=== PATIENT | male | born 1950 | race Two or more races ===

== ENCOUNTER 2017-01-12 11:11 | Emergency (ER) | payer MEDICAID ==
[~2017-01-12] VITALS: Ht 170.2 cm; Wt 99.8 kg
[~2017-01-12 11:11] MED LIST: ALDACTONE25 MG PO; AMLODIPINE BESY10 MG ORAL; ASPIR 8181 MG ORAL; ASPIR-LOW81 MG PO; ASPIRIN PO; AZITHROMYCIN250 MG ORAL; BENAZEPRIL HCL40 MG ORAL; CARVEDILOL25 MG ORAL; COLCHICINE0.6 M1 PO; COREG6.25 MG PO; COUMADIN3 MG PO; DIGOXIN0.125 MG/2 ORAL; DIGOXIN0.25 MG/5 PO; FUROSEMIDE40 MG ORAL; FUROSEMIDE40 MG PO; ISOSORBIDE DINI20 M1 PO; KEFLEX500 MG ORAL; LISINOPRIL20 MG PO; NITROGLYCERIN0.4 MG SL; NORCO 5-325 TA1 EACH ORAL; NORVASC10 MG PO; OMEPRAZOLE20 M2 ORAL; SPIRONOLACTONE1 EACH ORAL; SPIRONOLACTONE100 MG ORAL; ZESTRIL10 MG PO; ZOFRAN8 MG ORAL; [UNRECOGNIZED DRUG - OTHER] PO; spirinolactone
[2017-01-12] MEDS ORDERED: Lidocaine 1% Plain 30 ml INJ ONE (12:45)
--- NOTE | 2017-01-12 13:04 | Emergency Room Report ---
History of Present Illness General Chief Complaint: Pain Source: Patient Present Illness HPI 66YOM with known gout with 1 day left knee pain/swelling. Atraumatic. No recent dietary indiscretion. Denies fever/chills, rash to area. PMHx: CHF, HTN, AFIB, and hx pacemaker Allergies: Coded Allergies: No Known Allergies (Verified , 03/15/10) Patient History Past Medical History: DM, HTN, CAD, other - gout Past Surgical History: none, pacemaker Pertinent Family History: none Social History: Denies: alcohol use, drug use, smoking Immunizations: UTD Reviewed Nursing Documentation: PMH: Agreed, PSxH: Agreed Nursing Documentation-PMH Past Medical History: No History, Except For Hx Cardiac Problems: Yes - CHF, Gout Hx Hypertension: Yes Hx Pacemaker: Yes - since 2014 Hx Diabetes: No Hx Cancer: No Hx Gastrointestinal Problems: No Hx Dialysis: No History Of Psychiatric Problem: No Hx Neurological Problems: Yes Hx Cerebrovascular Accident: Yes - 2011 Hx Seizures: No Review of Systems All Other Systems: negative except mentioned in HPI Physical Exam Vital Signs Date Time Temp Pulse Resp B/P Pulse Ox O2 Delivery O2 Flow Rate FiO2 01/12/17 11:27 98.1 80 16 146/90 98 Room Air Sp02 EP Interpretation: reviewed, normal General Appearance: normal inspection, well appearing, no apparent distress, alert, GCS 15, non-toxic Head: normocephalic, atraumatic Eyes: bilateral eye EOMI, bilateral eye PERRL Neck: normal inspection, full range of motion, supple, no bony tend Respiratory: normal inspection, lungs clear, normal breath sounds, no respiratory distress, no retraction, no wheezing Cardiovascular #1: regular rate, rhythm, no edema Gastrointestinal: normal inspection, normal bowel sounds, non tender, soft, no guarding, no hernia Genitourinary: no CVA tenderness Musculoskeletal: normal inspection, back normal, normal range of motion, Quan' s Sign negative Neurologic: normal inspection, alert, oriented x3, responsive, 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 as tested, motor strength/tone normal, speech normal Psychiatric: normal inspection, judgement/insight normal, mood/affect normal Skin: normal inspection, normal color, no rash Procedures Additional Procedure Procedure Narrative Left knee arthrocentesis Patient positioned sitting upright with left knee extended Area sterilized with chlorhexedine prep Lateral superior portion of left knee anasthesized with 10cc lidocaine 1% Superior lateral approach done with needle aimed medially and inferiorly 80cc purulent yellow fluid aspirated No bleeding after procedure Patient tolerated well No complications Medical Decision Making Diagnostic Impression: Primary Impression: Left knee pain Qualified Codes: M25.562 - Pain in left knee Additional Impression: Gout attack Qualified Codes: M10.062 - Idiopathic gout, left knee ER Course DDx gouty flare, septic joint, arthritis PLAN Basic labs, ESR/CRP Xray Arthrocentesis Reevaluation Time: 13:44 Last Vital Signs Date Time Temp Pulse Resp B/P Pulse Ox O2 Delivery O2 Flow Rate FiO2 01/12/17 11:27 98.1 80 16 146/90 98 Room Air Status: improved Reevaluation Impression Labs: No leuks. H&H stable. Elevated CRP, ANGELA Arthrocentesis fluid is purulent, yellow 25K cell count. 94% PMNs Likely acute gout No fever or leukocytosis. Unable to DC home with either indomethacin or colchicine given major interactions with patient's digoxin or coumadin Will DC with vitamin C, advise cold compress PMD followup Disposition: HOME, SELF-CARE Referrals: NON PHYSICIAN (PCP) ALEXANDRE SULLIVAN M.D. Jan 12, 2017 13:03
[2017-01-12 13:08] LABS: BASOPHILS % (AUTO) 1.3 % (0.0-2.0); LYMPHOCYTES % (AUTO) 17.6 % (20.0-45.0); MEAN CORPUSCULAR HEMOGLOBIN 30.2 PG (27.0-31.0); MEAN CORPUSCULAR VOLUME 92 FL (80-99); MEAN PLATELET VOLUME 8.3 FL (6.5-10.1); MONOCYTES % (AUTO) 12.6 % (1.0-10.0); NEUTROPHILS % (AUTO) 66.6 % (45.0-75.0); PLATELET COUNT 250 K/UL (150-450); RED BLOOD COUNT 5.32 M/UL (4.70-6.10); RED CELL DISTRIBUTION WIDTH 12.6 % (11.6-14.8); WHITE BLOOD COUNT 8.7 K/UL (4.8-10.8)
[2017-01-12 13:25] LABS: ALANINE AMINOTRANSFERASE 17 U/L (3-41); ANION GAP 15 (5-15); ASPARTATE AMINO TRANSFERASE 14 U/L (5-40); CARBON DIOXIDE 28 mEQ/L (20-30); CHLORIDE 97 mEQ/L (98-107); CREATININE 0.9 mg/dL (0.7-1.2); CRP QUANT 6.1 mg/dL (< 0.5); GLOMERULAR FILTRATION RATE > 60 mL/min (>60); HEMOLYSIS 4; POTASSIUM 3.6 mEQ/L (3.4-4.9); SODIUM 140 mEQ/L (135-145); TOTAL PROTEIN 7.8 g/dL (6.6-8.7)
[2017-01-12 13:28] VITALS: BP 133/89
[2017-01-12] MEDS ORDERED: fentaNYL 100 mcg/2 mL IV ONE (13:45)
[2017-01-12 14:13] LABS: ERYTHROCYTE SEDIMENTATION RATE 23 MM/HR (0-20)
[2017-01-12 14:30] LABS: BD FL SOURCE SYNOVIAL; BD FL VOLUME 80 mL; BODY FLUID NUCLEATED CELLS 25288 /CUMM
[2017-01-12 14:31] LABS: BODY FLUID RBC 275 /CUMM
[2017-01-12 14:40] LABS: POLYMORPHONUCLEAR WBC 94 %
[2017-01-12 14:41] LABS: MONONUCLEAR WBC 6 %
[2017-01-12] MEDS ORDERED: VITAMIN C500 M1 ORAL (14:50)
[2017-01-12 15:29] VITALS: BP 143/93
[2017-01-12 15:31] VITALS: BP 143/93
--- NOTE | 2017-01-13 09:49 | Diagnostic Imaging Report ---
Indication: PAIN Technique: XRAY KNEE THREE VIEWS LEFT Comparison: None. Findings: There is tricompartment spurring. Fullness of the suprapatellar pouch is present. Slight narrowing of the medial joint compartment is noted as well. No acute fracture. No bone destruction. Impression: Osteoarthrosis. Knee effusion.
== END 2017-01-12 15:31 | disposition home or self-care (01) ==
LOC: EMR 12:18 → CANBEDREQ 14:40 → EMR 15:31
DX: M10.062 Idiopathic gout, left knee (principal); M25.562 Pain in left knee; I10 Essential (primary) hypertension; I50.9 Heart failure, unspecified; Z86.73 Personal history of transient ischemic attack (TIA), and cerebral infarction without residual deficits; I25.10 Atherosclerotic heart disease of native coronary artery without angina pectoris; I48.91 Unspecified atrial fibrillation; Z95.0 Presence of cardiac pacemaker
CPT/HCPCS: 20610; 36415; 73562; 80053; 85025; 85651; 86140; 87070; 87205; 89051; 96374; 99284; J2001; J3010; Z7502

== ENCOUNTER 2017-02-07 08:13 | Emergency (ER) | payer MEDICAID ==
[~2017-02-07] VITALS: Ht 170.2 cm; Wt 102.1 kg
[~2017-02-07 08:13] MED LIST changes: +VITAMIN C500 M1 ORAL
[2017-02-07] MEDS ORDERED: Lidocaine 1% Plain 30 ml INJ ONE (09:15)
[2017-02-07] MEDS ORDERED: Ketorolac 30mg Inj IM ONE (09:15)
[2017-02-07 10:35] VITALS: BP 128/88
[2017-02-07 11:53] LABS: APPEARANCE, BODY FLUID CLOUDY; BD FL SOURCE SYNOVIAL L KNEE; BD FL VOLUME 2 mL
[2017-02-07 11:54] LABS: BODY FLUID NUCLEATED CELLS 12075 /CUMM
[2017-02-07 12:21] LABS: BODY FLUID RBC 950 /CUMM
[2017-02-07 12:25] LABS: MONONUCLEAR WBC 14 %; POLYMORPHONUCLEAR WBC 80 %
[2017-02-07 12:30] VITALS: BP 145/77
--- NOTE | 2017-02-07 13:28 | Emergency Room Report ---
History of Present Illness General Chief Complaint: Lower Extremity Injury Source: Patient Present Illness HPI Patient has a history of left knee swelling. He has been diagnosed previously with gout. He was seen here 3 weeks ago for the same symptoms. He had swelling of his left knee and has severe pain with movement. He had the knee drained at that time. He states that since he left here the fluid reaccumulated. He denies fever or chills. Denies nausea or vomiting. He has no other complaints. Allergies: Coded Allergies: No Known Allergies (Verified , 03/15/10) Patient History Past Medical History: see triage record, DM, HTN, AK, CAD, CHF, CVA/TIA Social History: Denies: alcohol use, drug use, smoking Reviewed Nursing Documentation: PMH: Agreed, PSxH: Agreed Nursing Documentation-PMH Hx Cardiac Problems: Yes - CHF, Gout Hx Hypertension: Yes Hx Pacemaker: Yes - since 2014 Hx Diabetes: No Hx Cancer: No Hx Gastrointestinal Problems: No Hx Dialysis: No Hx Neurological Problems: Yes Hx Cerebrovascular Accident: Yes - 2011 Hx Seizures: No Review of Systems All Other Systems: negative except mentioned in HPI Physical Exam Vital Signs Date Time Temp Pulse Resp B/P Pulse Ox O2 Delivery O2 Flow Rate FiO2 02/07/17 08:21 98.2 87 18 158/88 97 Room Air Sp02 EP Interpretation: reviewed, normal General Appearance: no apparent distress, alert, GCS 15, non-toxic Head: normocephalic, atraumatic Eyes: bilateral eye PERRL, bilateral eye normal inspection ENT: hearing grossly normal, normal pharynx, no angioedema, normal voice Neck: full range of motion, supple/symm/no masses Respiratory: no respiratory distress, no retraction, no accessory muscle use, speaking full sentences Cardiovascular #1: regular rate, rhythm, no edema Gastrointestinal: normal bowel sounds, non tender, soft, non-distended, no guarding, no rebound Rectal: deferred Musculoskeletal: back normal, swelling - Tense swelling of the left knee consistent with a large joint effusion. No erythema or warmth. Neurologic: alert, oriented x3, responsive, motor strength/tone normal, sensory intact, speech normal Psychiatric: judgement/insight normal, memory normal, mood/affect normal, no suicidal/homicidal ideation Skin: normal color, no rash, warm/dry, well hydrated Procedures Additional Procedure Procedure Narrative Arthrocentesis of the left knee: The lateral aspect of the left knee was prepped and draped in a sterile manner. The area of injection was infiltrated with 2 mL of 1% lidocaine. An 18-gauge needle on a syringe was inserted into the joint space without complication or incident. 120 mL of cloudy yellow fluid was obtained. The wound was dressed and an Gunner bandage was applied to provide pressure. There were no complications. Medical Decision Making Diagnostic Impression: Primary Impression: Joint effusion of knee ER Course This patient has a joint effusion of the left knee. The knee was very tense and painful, so I did do an arthrocentesis to improve the patient's discomfort. I reviewed the results of the previous arthrocentesis and all of which were inflammatory and the Gram stain and culture were negative. I did resend the synovial fluid from today's arthrocentesis him to have the same findings. The fluid is inflammatory but there is no evidence of septic joint. Patient does have a known history of gout. The crystal study is pending. I instructed the patient to followup closely with his primary care physician and additionally an orthopedic surgeon. I also educated the patient that likely this effusion will return reaccumulate and so he needs to get more definitive therapy and treatment. I will place the patient on anti-inflammatories. The patient is accompanied by his son who also indicated understanding. The patient and his son are given return precautions and followup instructions. Labs Test 02/07/17 10:30 Body Fluid Source Synovial l knee Body Fluid Volume 2 mL Body Fluid Appearance Cloudy Body Fluid RBC 950 /CUMM Body Fluid Total Nucleated Cells 62221 /CUMM Body Fluid Polynuclear WBCs (%) 80 % Body Fluid Mononuclear WBCs (%) 14 % Body Fluid Mesothelial Cells (%) 6 % Last Vital Signs Date Time Temp Pulse Resp B/P Pulse Ox O2 Delivery O2 Flow Rate FiO2 02/07/17 10:35 98.9 72 18 128/88 95 Room Air Status: improved Disposition: HOME, SELF-CARE Condition: Improved Referrals: NON PHYSICIAN (PCP) GERALDINE SAMAYOA D.O. February 07, 2017 13:28
[2017-02-07] MEDS ORDERED: COLCHICINE0.6 M1 PO (13:32)
[2017-02-07 13:49] VITALS: BP 138/76
== END 2017-02-07 13:45 | disposition home or self-care (01) ==
LOC: EMR 09:02
DX: M25.462 Effusion, left knee (principal); M25.562 Pain in left knee; E11.9 Type 2 diabetes mellitus without complications; I10 Essential (primary) hypertension; I25.2 Old myocardial infarction; I25.10 Atherosclerotic heart disease of native coronary artery without angina pectoris; I50.9 Heart failure, unspecified; Z86.73 Personal history of transient ischemic attack (TIA), and cerebral infarction without residual deficits; M10.9 Gout, unspecified; Z95.0 Presence of cardiac pacemaker; Z86.69 Personal history of other diseases of the nervous system and sense organs
CPT/HCPCS: 20610; 29530; 89051; 89060; 96374; 96375; 99284; J1885; J2001; Z7502

== ENCOUNTER 2018-07-02 08:10 | Inpatient (IN) | payer MEDICAID ==
[2018-07-02] VITALS (7 sets, daily range): BP systolic 120–160; BP diastolic 80–113
[~2018-07-02] VITALS: Ht 172.7 cm; Wt 97.5 kg
[2018-07-02] MEDS ORDERED: ATORVASTATIN CA20 MG ORAL (08:25)
[2018-07-02] MEDS ORDERED: SPIRONOLACTONE100 MG ORAL (08:25)
[2018-07-02] MEDS ORDERED: LOSARTAN POTASS50 MG ORAL (08:25)
[2018-07-02] MEDS ORDERED: XARELTO10 MG ORAL (08:25)
[2018-07-02] MEDS ORDERED: Sodium Chloride 500ML 500 ML IV ONE (08:28)
[2018-07-02] MEDS ORDERED: Morphine Sulfate 2mg/ml Inj IVP ONE (08:30)
--- NOTE | 2018-07-02 08:34 | Emergency Room Report ---
History of Present Illness General Chief Complaint: Chest Pain Source: Patient Present Illness HPI 68-year-old male presents ED complaining of chest pain. States that chest pain started this morning around 5 AM. Sudden onset. Sharp. Midsternal, 7 out of 10, nonradiating. Notes shortness of breath. Son at bedside states that patient was discharged from [facility] on Saturday. Was there overnight after his ICD fired. ICD was evaluated and patient was subsequently discharged. Patient states that ICD did not fire today. Denies fevers or chills. Denies leg swelling. States he's been compliant with his medications. No other aggravating relieving factors. Denies any other associated symptoms Allergies: Coded Allergies: No Known Allergies (Verified , 03/15/10) Patient History Past Medical History: HTN, CHF, AFib, CVA/TIA Past Surgical History: pacemaker Social History: Denies: smoking, alcohol use, drug use Immunizations: UTD Reviewed Nursing Documentation: PMH: Agreed; PSxH: Agreed Nursing Documentation-PMH Past Medical History: No History, Except For Hx Cardiac Problems: Yes - CHF, Gout Hx Hypertension: Yes Hx Pacemaker: Yes - since 2014 Hx Diabetes: No Hx Cancer: No Hx Gastrointestinal Problems: No Hx Dialysis: No Hx Neurological Problems: Yes Hx Cerebrovascular Accident: Yes - 2011 Hx Seizures: No Review of Systems All Other Systems: negative except mentioned in HPI Physical Exam Vital Signs Date Time Temp Pulse Resp B/P (MAP) Pulse Ox O2 Delivery O2 Flow Rate FiO2 07/02/18 08:11 98.5 95 18 154/89 96 Room Air 98.4 Sp02 EP Interpretation: reviewed, normal General Appearance: no apparent distress, alert, GCS 15, non-toxic Head: normocephalic, atraumatic Eyes: bilateral eye normal inspection, bilateral eye PERRL ENT: hearing grossly normal, normal pharynx, no angioedema, normal voice Neck: full range of motion, supple/symm/no masses Respiratory: chest non-tender, lungs clear, normal breath sounds, speaking full sentences Cardiovascular #1: regular rate, rhythm, no edema Cardiovascular #2: 2+ carotid (R), 2+ carotid (L), 2+ radial (R), 2+ radial (L) , 2+ dorsalis pedis (R), 2+ dorsalis pedis (L) Gastrointestinal: normal bowel sounds, non tender, soft, non-distended, no guarding, no rebound Rectal: deferred Genitourinary: normal inspection, no CVA tenderness Musculoskeletal: back normal, gait/station normal, normal range of motion, non- tender Neurologic: alert, oriented x3, responsive, motor strength/tone normal, sensory intact, speech normal Psychiatric: judgement/insight normal, memory normal, mood/affect normal, no suicidal/homicidal ideation Reflexes: 3+ bicep (R), 3+ bicep (L), 3+ tricep (R), 3+ tricep (L), 3+ knee (R) , 3+ knee (L) Skin: normal color, no rash, warm/dry, well hydrated Lymphatic: no adenopathy Medical Decision Making Diagnostic Impression: Primary Impression: ACS (acute coronary syndrome) Additional Impressions: CHF (congestive heart failure) Qualified Codes: I50.9 - Heart failure, unspecified Atrial fibrillation Qualified Codes: I48.91 - Unspecified atrial fibrillation ER Course Hospital Course 68-year-old male presents ED complaining of chest pain Differential diagnoses include: TX/unstable angina, contusion, muscle strain, PTX, rib fracture Clinical course Patient placed on stretcher. on night monitor. After initial history and physical I ordered labs, EKG, chest x-ray, morphine labs reviewed- no leukocytosis, hb/hct stable, BUN/Cr mildly elevated, trop 0.00 , BNP elevated, coags ok EKG - afib, twave inversions in lateral leads interpreted by me Chest x-ray- cardiomegaly, ICD noted aspirin given. Given his significant cardiac history patient will be admitted Case discussed with Dr. Pedro and he agreed to accept the patient to his service for further care and support I. I feel this is a highly complex case requiring extensive working including EKG/Rhythm strip, Xray/CT/US, Blood/urine lab work, repeat exams while in ED, and administration of strong opiates/narcotics for pain control, admission to hospital or close patient follow up. Diagnosis - ACS, CHF, afib admitted to telemetry in serious condition Labs Test 07/02/18 08:20 White Blood Count 6.6 K/UL (4.8-10.8) Red Blood Count 6.14 M/UL (4.70-6.10) Hemoglobin 17.1 G/DL (14.2-18.0) Hematocrit 51.9 % (42.0-52.0) Mean Corpuscular Volume 85 FL (80-99) Mean Corpuscular Hemoglobin 27.9 PG (27.0-31.0) Mean Corpuscular Hemoglobin Concent 32.9 G/DL (32.0-36.0) Red Cell Distribution Width 13.7 % (11.6-14.8) Platelet Count 201 K/UL (150-450) Mean Platelet Volume 8.0 FL (6.5-10.1) Neutrophils (%) (Auto) 66.9 % (45.0-75.0) Lymphocytes (%) (Auto) 19.0 % (20.0-45.0) Monocytes (%) (Auto) 10.9 % (1.0-10.0) Eosinophils (%) (Auto) 2.3 % (0.0-3.0) Basophils (%) (Auto) 1.0 % (0.0-2.0) Prothrombin Time 12.4 SEC (9.30-11.50) Prothromb Time International Ratio 1.2 (0.9-1.1) Activated Partial Thromboplast Time 35 SEC (23-33) Sodium Level 140 MMOL/L (136-145) Potassium Level 3.9 MMOL/L (3.5-5.1) Chloride Level 102 MMOL/L (98-107) Carbon Dioxide Level 31 MMOL/L (21-32) Anion Gap 7 mmol/L (5-15) Blood Urea Nitrogen 27 mg/dL (7-18) Creatinine 1.4 MG/DL (0.55-1.30) Estimat Glomerular Filtration Rate 50.7 mL/min (>60) Glucose Level 147 MG/DL (74-106) Calcium Level 9.5 MG/DL (8.5-10.1) Total Bilirubin 1.1 MG/DL (0.2-1.0) Direct Bilirubin 0.3 MG/DL (0.0-0.3) Aspartate Amino Transf (AST/SGOT) 12 U/L (15-37) Alanine Aminotransferase (ALT/SGPT) 18 U/L (12-78) Alkaline Phosphatase 118 U/L (46-116) Total Creatine Kinase 83 U/L (26-308) Creatine Kinase MB 1.0 NG/ML (0.0-3.6) Creatine Kinase MB Relative Index 1.2 Troponin I 0.000 ng/mL (0.000-0.056) Pro-B-Type Natriuretic Peptide 1917 pg/mL (0-125) Total Protein 8.5 G/DL (6.4-8.2) Albumin 3.6 G/DL (3.4-5.0) Globulin 4.9 g/dL Albumin/Globulin Ratio 0.7 (1.0-2.7) EKG Diagnostic Results Rate: tachycardiac Rhythm: other - afib ST Segments: other - twave inversions in lateral leads ASA given to the pt in ED: Yes Rhythm Strip Diag. Results EP Interpretation: yes Rhythm: no PVC's, no ectopy Chest X-Ray Diagnostic Results Chest X-Ray Diagnostic Results : Chest X-Ray Ordered: Yes # of Views/Limited/Complete: 1 View Indication: Chest Pain EP Interpretation: Yes Interpretation: no consolidation, no effusion, no pneumothorax, other - cardiomegaly. ICD Impression: Other - cardiomegaly Electronically Signed by: Electronically signed by Nehemias Zeng MD Last Vital Signs Date Time Temp Pulse Resp B/P (MAP) Pulse Ox O2 Delivery O2 Flow Rate FiO2 07/02/18 08:11 98.5 95 18 154/89 96 Room Air 98.4 Status: improved Disposition: ADMITTED INPATIENT Condition: Serious Referrals: NOT CHOSEN IPA/,REFERRING (PCP) Nehemias Zeng MD Jul 02, 2018 08:34
[2018-07-02 08:38] LABS: EOSINOPHILS % (AUTO) 2.3 % (0.0-3.0); HEMATOCRIT 51.9 % (42.0-52.0); HEMOGLOBIN 17.1 G/DL (14.2-18.0); MEAN CORPUSCULAR VOLUME 85 FL (80-99); MONOCYTES % (AUTO) 10.9 % (1.0-10.0); NEUTROPHILS % (AUTO) 66.9 % (45.0-75.0); PLATELET COUNT 201 K/UL (150-450); RED BLOOD COUNT 6.14 M/UL (4.70-6.10); RED CELL DISTRIBUTION WIDTH 13.7 % (11.6-14.8); WHITE BLOOD COUNT 6.6 K/UL (4.8-10.8)
[2018-07-02 08:52] LABS: INR 1.2 (0.9-1.1)
[2018-07-02 09:08] LABS: ANION GAP 7 mmol/L (5-15); BLOOD UREA NITROGEN 27 mg/dL (7-18); CALCIUM 9.5 MG/DL (8.5-10.1); CARBON DIOXIDE 31 MMOL/L (21-32); CHLORIDE 102 MMOL/L (98-107); CREATININE 1.4 MG/DL (0.55-1.30); POTASSIUM 3.9 MMOL/L (3.5-5.1); SODIUM 140 MMOL/L (136-145)
[2018-07-02 09:21] LABS: ALANINE AMINOTRANSFERASE 18 U/L (12-78); ALBUMIN 3.6 G/DL (3.4-5.0); ALBUMIN/GLOBULIN RATIO 0.7 (1.0-2.7); ASPARTATE AMINO TRANSFERASE 12 U/L (15-37); BILIRUBIN,TOTAL 1.1 MG/DL (0.2-1.0)
[2018-07-02 09:22] LABS: BILIRUBIN,DIRECT 0.3 MG/DL (0.0-0.3)
[2018-07-02 09:32] LABS: ALKALINE PHOSPHATASE 118 U/L (46-116); CREATINE KINASE 83 U/L (26-308)
[2018-07-02] MEDS ORDERED: Norco 5mg/325mg tab ORAL PRN (09:45)
--- NOTE | 2018-07-02 10:00 | Diagnostic Imaging Report ---
Indication: Chest pain Technique: One view of the chest Comparison: 02/23/2015 Findings: Heart remains enlarged. There is a bifocal left chest AICD again demonstrated. The lungs and pleural spaces are clear Impression: Cardiomegaly, AICD. No acute process
--- NOTE | 2018-07-02 12:33 | Cardiac Electrophysiology PN ---
Subjective Subjective Cardiology consult dictated [id number] Objective Last 24 Hour Vital Signs Date Time Temp Pulse Resp B/P (MAP) Pulse Ox O2 Delivery O2 Flow Rate FiO2 07/02/18 11:08 94 18 156/96 99 Room Air 07/02/18 09:17 100 18 135/84 99 Room Air 07/02/18 08:51 98.2 07/02/18 08:35 77 17 07/02/18 08:34 98.2 80 17 120/100 100 Room Air 98.2 07/02/18 08:30 90 18 129/109 99 Room Air 07/02/18 08:11 98.5 95 18 154/89 96 Room Air 98.4 Laboratory Tests Test 07/02/18 08:20 White Blood Count 6.6 K/UL (4.8-10.8) Red Blood Count 6.14 M/UL (4.70-6.10) H Hemoglobin 17.1 G/DL (14.2-18.0) Hematocrit 51.9 % (42.0-52.0) Mean Corpuscular Volume 85 FL (80-99) Mean Corpuscular Hemoglobin 27.9 PG (27.0-31.0) Mean Corpuscular Hemoglobin Concent 32.9 G/DL (32.0-36.0) Red Cell Distribution Width 13.7 % (11.6-14.8) Platelet Count 201 K/UL (150-450) Mean Platelet Volume 8.0 FL (6.5-10.1) Neutrophils (%) (Auto) 66.9 % (45.0-75.0) Lymphocytes (%) (Auto) 19.0 % (20.0-45.0) L Monocytes (%) (Auto) 10.9 % (1.0-10.0) H Eosinophils (%) (Auto) 2.3 % (0.0-3.0) Basophils (%) (Auto) 1.0 % (0.0-2.0) Prothrombin Time 12.4 SEC (9.30-11.50) H Prothromb Time International Ratio 1.2 (0.9-1.1) H Activated Partial Thromboplast Time 35 SEC (23-33) H Sodium Level 140 MMOL/L (136-145) Potassium Level 3.9 MMOL/L (3.5-5.1) Chloride Level 102 MMOL/L (98-107) Carbon Dioxide Level 31 MMOL/L (21-32) Anion Gap 7 mmol/L (5-15) Blood Urea Nitrogen 27 mg/dL (7-18) H Creatinine 1.4 MG/DL (0.55-1.30) H Estimat Glomerular Filtration Rate 50.7 mL/min (>60) Glucose Level 147 MG/DL (74-106) H Calcium Level 9.5 MG/DL (8.5-10.1) Total Bilirubin 1.1 MG/DL (0.2-1.0) H Direct Bilirubin 0.3 MG/DL (0.0-0.3) Aspartate Amino Transf (AST/SGOT) 12 U/L (15-37) L Alanine Aminotransferase (ALT/SGPT) 18 U/L (12-78) Alkaline Phosphatase 118 U/L (46-116) H Total Creatine Kinase 83 U/L (26-308) Creatine Kinase MB 1.0 NG/ML (0.0-3.6) Creatine Kinase MB Relative Index 1.2 Troponin I 0.000 ng/mL (0.000-0.056) Pro-B-Type Natriuretic Peptide 1917 pg/mL (0-125) H Total Protein 8.5 G/DL (6.4-8.2) H Albumin 3.6 G/DL (3.4-5.0) Globulin 4.9 g/dL Albumin/Globulin Ratio 0.7 (1.0-2.7) L Microbiology Date/Time Source Procedure Growth Status 07/02/18 09:35 Rectal Mucosa Received Chong Yanez MD Jul 02, 2018 12:33
--- NOTE | 2018-07-02 13:00 | History & Physical ---
History and Physical History & Physicial Dictated for Int med-Dr Pedro no. [id number]. Jeremy Hanson MD Jul 02, 2018 13:00
[2018-07-02] MEDS: Carvedilol 25mg Tab ORAL SCH (17:51)
[2018-07-02] MEDS: Heparin 5000 units/ml inj SUBQ SCH (21:22)
[2018-07-03] VITALS: BP 138/80
[2018-07-03 04:00] VITALS: BP 123/76
[2018-07-03 07:32] LABS: BASOPHILS % (AUTO) 1.2 % (0.0-2.0); EOSINOPHILS % (AUTO) 3.7 % (0.0-3.0); HEMATOCRIT 52.1 % (42.0-52.0); LYMPHOCYTES % (AUTO) 28.6 % (20.0-45.0); MEAN CORPUSCULAR VOLUME 86 FL (80-99); MONOCYTES % (AUTO) 12.6 % (1.0-10.0); NEUTROPHILS % (AUTO) 53.8 % (45.0-75.0); PLATELET COUNT 204 K/UL (150-450); RED BLOOD COUNT 6.04 M/UL (4.70-6.10); RED CELL DISTRIBUTION WIDTH 13.7 % (11.6-14.8); WHITE BLOOD COUNT 6.1 K/UL (4.8-10.8)
[2018-07-03 07:56] LABS: ALANINE AMINOTRANSFERASE 16 U/L (12-78); ALBUMIN 3.4 G/DL (3.4-5.0); ALBUMIN/GLOBULIN RATIO 0.7 (1.0-2.7); ALKALINE PHOSPHATASE 111 U/L (46-116); ANION GAP 7 mmol/L (5-15); ASPARTATE AMINO TRANSFERASE 12 U/L (15-37); BILIRUBIN,TOTAL 0.9 MG/DL (0.2-1.0); BLOOD UREA NITROGEN 32 mg/dL (7-18); CALCIUM 9.5 MG/DL (8.5-10.1); CARBON DIOXIDE 32 MMOL/L (21-32); CHLORIDE 103 MMOL/L (98-107); CREATININE 1.3 MG/DL (0.55-1.30); PHOSPHORUS 3.5 MG/DL (2.5-4.9); POTASSIUM 4.1 MMOL/L (3.5-5.1); SODIUM 142 MMOL/L (136-145)
[2018-07-03 08:00] VITALS: BP 141/81
[2018-07-03] MEDS ORDERED: Spironolactone 25mg tab ORAL SCH (09:00)
[2018-07-03] MEDS ORDERED: Digoxin Elixir 0.125mg ORAL SCH (09:00)
[2018-07-03] MEDS ORDERED: Losartan 50mg tab ORAL SCH (09:00)
[2018-07-03] MEDS ORDERED: Xarelto 10mg tab ORAL SCH (09:00)
[2018-07-03 09:59] VITALS: BP 141/81
[2018-07-03] MEDS: Carvedilol 25mg Tab ORAL SCH (09:59)
[2018-07-03] MEDS: Heparin 5000 units/ml inj SUBQ SCH (10:03)
--- NOTE | 2018-07-03 11:50 | Consultation ---
History of Present Illness General Date patient seen: Jul 03, 2018 Chief Complaint: Chest Pain Present Illness HPI 68-year-old male with hx of cardiomyopathy and ICD presented to ED complaining of chest pain. States that chest pain started this morning around 5 AM. Sudden onset. Sharp. Midsternal, 7 out of 10, nonradiating. Son at bedside states that patient was discharged from [facility] on Saturday. Denies fevers or chills. Denies leg swelling. States he's been compliant with his medications. He is admitted to telemetry for further treatment. Allergies: Coded Allergies: No Known Allergies (Verified , 03/15/10) Medication History Scheduled Amlodipine Besylate* (Amlodipine Besylate*), 10 MG ORAL DAILY, (Reported) Ascorbic Acid* (Vitamin C*), 500 MG ORAL DAILY Aspirin* (Aspir-Low*), 81 MG PO DAILY, (Reported) Atorvastatin Calcium* (Atorvastatin Calcium*), 10 MG ORAL BEDTIME, (Reported) Carvedilol* (Carvedilol*), 25 MG ORAL BID, (Reported) Colchicine (Colchicine), 0.6 MG PO DAILY Colchicine (Colchicine), 0.6 MG PO DAILY Digoxin* (Digoxin*), 0.125 MG ORAL DAILY, (Reported) Furosemide* (Lasix*), 40 MG PO DAILY, (Reported) Losartan Potassium* (Losartan Potassium*), 100 MG ORAL DAILY, (Reported) Omeprazole (Omeprazole), 20 MG ORAL DAILY, (Reported) Rivaroxaban (Xarelto*), 20 MG ORAL DAILY, (Reported) Spironolactone* (Spironolactone*), 12.5 MG ORAL DAILY, (Reported) Warfarin Sod* (Coumadin*), 2 MG PO DAILY, (Reported) Scheduled PRN Hydrocodone Bit/Acetaminophen 5-325* (Sussex 5-325*), 1 TAB ORAL Q6H PRN for For Pain Miscellaneous Medications Benazepril Hcl* (Benazepril Hcl*), 40 MG ORAL, (Reported) Spironolactone* (Spironolactone*), 25 MG ORAL, (Reported) Patient History Healthcare decision maker Resuscitation status Full Code Advanced Directive on File Past Medical/Surgical History Past Medical/Surgical History: (1) Atrial fibrillation (2) Gout Review of Systems All Other Systems: negative except mentioned in HPI Physical Exam General Appearance: WD/WN, no apparent distress Lines, tubes and drains: peripheral HEENT: normocephalic, atraumatic Neck: non-tender, normal alignment Respiratory/Chest: chest wall non-tender, lungs clear Breasts: no masses Cardiovascular/Chest: normal rate Abdomen: normal bowel sounds Genitourinary/Rectal: normal genital exam Last 24 Hour Vital Signs Date Time Temp Pulse Resp B/P (MAP) Pulse Ox O2 Delivery O2 Flow Rate FiO2 07/03/18 09:59 54 07/03/18 09:59 54 141/81 07/03/18 09:58 141/81 07/03/18 08:20 Room Air 07/03/18 08:00 97.9 54 20 141/81 (101) 97 97.9 07/03/18 04:00 97.5 63 18 123/76 (92) 97 97.5 07/03/18 04:00 84 07/03/18 00:00 77 07/03/18 00:00 98.2 84 18 138/80 (99) 97 98.2 07/02/18 21:00 Room Air 07/02/18 20:00 96.1 95 18 143/80 (101) 96 96.1 07/02/18 20:00 106 07/02/18 17:51 90 160/113 07/02/18 16:00 90 07/02/18 14:18 Room Air 07/02/18 12:42 18 154/92 99 Room Air 07/02/18 12:42 97.7 70 20 160/113 (129) 97 97.7 07/02/18 12:00 104 Intake and Output 07/02/18 07/03/18 19:00 07:00 Intake Total 2380 ml Balance 2380 ml Intake Oral 1880 ml IV Total 500 ml # Voids 3 1 Laboratory Tests Test 07/03/18 05:55 White Blood Count 6.1 K/UL (4.8-10.8) Red Blood Count 6.04 M/UL (4.70-6.10) Hemoglobin 17.0 G/DL (14.2-18.0) Hematocrit 52.1 % (42.0-52.0) H Mean Corpuscular Volume 86 FL (80-99) Mean Corpuscular Hemoglobin 28.1 PG (27.0-31.0) Mean Corpuscular Hemoglobin Concent 32.6 G/DL (32.0-36.0) Red Cell Distribution Width 13.7 % (11.6-14.8) Platelet Count 204 K/UL (150-450) Mean Platelet Volume 8.2 FL (6.5-10.1) Neutrophils (%) (Auto) 53.8 % (45.0-75.0) Lymphocytes (%) (Auto) 28.6 % (20.0-45.0) Monocytes (%) (Auto) 12.6 % (1.0-10.0) H Eosinophils (%) (Auto) 3.7 % (0.0-3.0) H Basophils (%) (Auto) 1.2 % (0.0-2.0) Erythrocyte Sedimentation Rate 8 MM/HR (0-20) Sodium Level 142 MMOL/L (136-145) Potassium Level 4.1 MMOL/L (3.5-5.1) Chloride Level 103 MMOL/L (98-107) Carbon Dioxide Level 32 MMOL/L (21-32) Anion Gap 7 mmol/L (5-15) Blood Urea Nitrogen 32 mg/dL (7-18) H Creatinine 1.3 MG/DL (0.55-1.30) Estimat Glomerular Filtration Rate 55.2 mL/min (>60) Glucose Level 93 MG/DL (74-106) Calcium Level 9.5 MG/DL (8.5-10.1) Phosphorus Level 3.5 MG/DL (2.5-4.9) Magnesium Level 1.9 MG/DL (1.8-2.4) Total Bilirubin 0.9 MG/DL (0.2-1.0) Aspartate Amino Transf (AST/SGOT) 12 U/L (15-37) L Alanine Aminotransferase (ALT/SGPT) 16 U/L (12-78) Alkaline Phosphatase 111 U/L (46-116) Troponin I 0.000 ng/mL (0.000-0.056) Total Protein 8.0 G/DL (6.4-8.2) Albumin 3.4 G/DL (3.4-5.0) Globulin 4.6 g/dL Albumin/Globulin Ratio 0.7 (1.0-2.7) L Height (Feet): 5 Height (Inches): 8.00 Weight (Pounds): 215 Medications Current Medications Medications (Trade) Dose Ordered Sig/Ronnie Route PRN Reason Start Time Stop Time Status Last Admin Dose Admin Acetaminophen/ Hydrocodone Bitart (Sussex 5/325) 1 tab Q6H PRN ORAL For Pain 07/02/18 09:45 07/09/18 09:44 Atorvastatin Calcium (Lipitor) 10 mg BEDTIME ORAL 07/02/18 21:00 08/01/18 20:59 07/02/18 21:21 Carvedilol (Coreg) 25 mg BID ORAL 07/02/18 18:00 08/01/18 17:59 07/02/18 17:51 Digoxin (Lanoxin) 0.125 mg DAILY ORAL 07/03/18 09:00 08/02/18 08:59 Furosemide (Lasix) 40 mg EVERY 12 HOURS IV 07/02/18 21:00 08/01/18 20:59 07/03/18 09:58 Heparin Sodium (Porcine) (Heparin 5000 units/ml) 5,000 units EVERY 12 HOURS SUBQ 07/02/18 21:00 08/01/18 20:59 07/03/18 10:03 Losartan Potassium (Cozaar) 100 mg DAILY ORAL 07/03/18 09:00 08/02/18 08:59 07/03/18 09:58 Rivaroxaban (Xarelto) 20 mg DAILY ORAL 07/03/18 09:00 08/02/18 08:59 07/03/18 09:57 Spironolactone (Aldactone) 25 mg DAILY ORAL 07/03/18 09:00 08/02/18 08:59 07/03/18 09:58 Assessment/Plan Problem List: (1) ACS (acute coronary syndrome) ICD Codes: I24.9 - Acute ischemic heart disease, unspecified SNOMED: 258000731 (2) Atrial fibrillation ICD Codes: I48.91 - Unspecified atrial fibrillation SNOMED: 17869515 Qualifiers: Qualified Codes: I48.91 - Unspecified atrial fibrillation (3) HTN (hypertension) ICD Codes: I10 - HTN (hypertension) SNOMED: 04886006 Assessment/Plan rate control symptomatic treatment dc 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
--- NOTE | 2018-07-03 17:00 | Consultation ---
DATE OF CONSULTATION: 07/02/2018 CARDIOLOGY CONSULTATION CONSULTING PHYSICIAN: Chong Yanez M.D. REFERRING PHYSICIAN: Abdiaziz Pedro M.D. REASON FOR CONSULTATION: Evaluation of the patient's defibrillator and congestive heart failure. HISTORY OF PRESENT ILLNESS: The patient is a 68-year-old gentleman with history of hypertension, chronic atrial fibrillation, congestive heart failure, who underwent a defibrillator implantation at [facility] in 2014. The patient presented to the emergency room with chest pain which started at around 5 o'clock in the morning. It was sudden, was sharp, was midsternal, 7/10. The patient also felt that he was short of breath. The patient was recently discharged from [facility] on Saturday when they kept overnight for evaluation of his ICD firing. The patient's defibrillator did not discharge today. The patient was admitted and Cardiology consultation was obtained for further evaluation and management. REVIEW OF SYSTEMS: Negative other than what was mentioned in history of present illness. PAST MEDICAL HISTORY: Hypertension, atrial fibrillation, congestive heart failure, status post defibrillator in 2014. FAMILY HISTORY: Noncontributory. SOCIAL HISTORY: He lives at home. Does not smoke or drink alcohol. PHYSICAL EXAMINATION: VITAL SIGNS: Blood pressure 154/89, pulse 95, respirations 18, and temperature 98.5. HEAD AND NECK: Show mild JVD. LUNGS: Decreased breath sounds. CARDIOVASCULAR: Irregular S1 and S2 with no gallop or murmur. ABDOMEN: Soft. EXTREMITIES: No pitting edema. SKIN: His defibrillator in left subclavian is intact. DIAGNOSTIC DATA: His EKG showed atrial fibrillation, controlled ventricular response. LABORATORY DATA: His labs show white count of 6.6, hemoglobin of 17.1, hematocrit 52, and platelet count is 201,000. Sodium is 140, potassium 3.9, BUN of 47, creatinine 1.4, and glucose of 147. Troponin is negative x2. BNP is 1917. Digoxin level is 1.1. ASSESSMENT AND PLAN: 1. Atrial fibrillation. Rate is controlled on digoxin 0.1 mg daily. Repeat INR however is only 1.2. The patient is on Xarelto 20 mg daily, however, the patient is also on Coreg for better rate control at 25 mg b.i.d. 2. Congestive heart failure. Echocardiogram will be repeated. Continue Coreg 25 mg b.i.d., Aldactone 25 mg daily, Cozaar 100 mg daily, digoxin 0.125 mg daily. Discontinue Lotensin as the patient is already on Cozaar. Add Lasix to his medical regimen. 3. Status post dual-chamber defibrillator with recent shock. We will interrogate defibrillator for further evaluation. 4. Hyperlipidemia, on Lipitor. Thank you very much, Dr. Pedro, for allowing me to participate in the care of this patient. Please do not hesitate to contact me for any questions regarding my evaluation. Chong Yanez M.D. DR: Belkis JOB#: [id number] CC:
--- NOTE | 2018-07-04 08:44 | Discharge Summary ---
Discharge Summary Discharge Summary _ DATE OF ADMISSION: 07/02/2018 DATE OF DISCHARGE: 07/03/2018 CONSULTANTS: Dr. Chong Denton BRIEF HOSPITAL COURSE: Patient is a 68-year-old male, who presented to ED complaining of chest pain. Pain started early in the morning around 5 AM. Pain was sudden in onset. Described to be sharp, midsternal, 7 out of 10, and nonradiating. He also noted shortness of breath. Son was at bedside and stated patient was recently at [facility] and was observed overnight after ICD fired. ICD was evaluated and patient was subsequently discharged. He denied any fever or chills, denied any leg swelling, he stated to be compliant with his medications. He has medical history significant for hypertension, CHF, atrial fibrillation status post pacemaker, CVA/TIA. On evaluation at ED, blood pressure was 154/89, heart rate 95. Blood work did not show any leukocytosis, hemoglobin and hematocrit stable, creatinine was slightly elevated to 1.4, BUN 27. Initial troponin was negative. ProBNP 1917. EKG showed normal sinus rhythm with T-wave inversions in the lateral leads. Chest x-ray showed cardiomegaly with ICD noted on the left chest. There was no acute process. He was given aspirin. He was then admitted for further evaluation. He underwent cardiac evaluation. Cardiac enzyme was monitored. Patient has atrial fibrillation with controlled rate on digoxin 0.1 mg daily and Coreg 25 mg twice a day. He was continued on Xarelto 20 mg daily. He has history of congestive heart failure and was given Aldactone, Cozaar and Lasix. Advised to discontinue Lotensin as patient is already on Cozaar. He has history of hyperlipidemia and was continued on Lipitor. Cardiac enzymes were monitored. He was given symptomatic treatment. Troponin was negative 2. He was eventually discharged home. FINAL DIAGNOSES: Atrial fibrillation, rate controlled Acute on chronic systolic and diastolic congestive heart failure Status post dual-chamber defibrillator Hypertension DISPOSITION: Patient was discharged home. DISCHARGE MEDICATIONS: Refer to Discharge Medication List. DISCHARGE INSTRUCTIONS: Follow up with PCP in a week. I have been assigned to dictate discharge summary on this account, and I was not involved in the patient's management. Milady Alanis NP Jul 04, 2018 08:44
== END 2018-07-03 13:04 | disposition home or self-care (01) | DRG 194 ==
LOC: EMR 08:24 → EDBEDREQ 08:55 → 2E 09:01 → EDBEDREQ 09:13
DX: I11.0 Hypertensive heart disease with heart failure (principal); I48.2 Chronic atrial fibrillation; I50.43 Acute on chronic combined systolic (congestive) and diastolic (congestive) heart failure; E78.5 Hyperlipidemia, unspecified; M10.9 Gout, unspecified; Z79.82 Long term (current) use of aspirin; Z86.73 Personal history of transient ischemic attack (TIA), and cerebral infarction without residual deficits; Z95.810 Presence of automatic (implantable) cardiac defibrillator
CPT/HCPCS: 36415; 71045; 80053; 82248; 82550; 82553; 83735; 83880; 84100; 84484; 85025; 85610; 85651; 85730; 87081; 93005; 93306; 96374; 99285

== ENCOUNTER 2019-06-29 14:15 | Inpatient (IN) | payer MEDICAID ==
[~2019-06-29] VITALS: Ht 170.2 cm; Wt 100.7 kg
--- NOTE | 2019-06-29 11:00 | NUR ---
*-* NO INSURANCE INFORMATION ON THE BAR UNABLE TO SEND CLINICALS OR REVIEWS *-*
[~2019-06-29 14:15] MED LIST changes: +ATORVASTATIN CA20 MG ORAL; +LOSARTAN POTASS50 MG ORAL; +XARELTO10 MG ORAL
[2019-06-29] MEDS ORDERED: Aspirin Baby 81mg ORAL ONE (14:30)
--- NOTE | 2019-06-29 14:31 | Emergency Room Report ---
History of Present Illness General Chief Complaint: Chest Pain Present Illness HPI Patient is a 69-year-old male presents after increased pressure-like substernal chest pain for approximately 1 day. Patient had increased shortness of breath associated. Pain is intermittent. He had some prior history of cardiac disease which included ejection fraction which could not to be determined but septal hypokinesis as well as left atrial enlargement. He is currently taking digoxin as well as Xarelto. He had prior history of gout. Allergies: Coded Allergies: No Known Allergies (Verified , 03/15/10) Patient History Past Medical History: see triage record, CHF, other - gout Past Surgical History: pacemaker Reviewed Nursing Documentation: PMH: Agreed; PSxH: Agreed Nursing Documentation-PMH Hx Cardiac Problems: Yes - CHF, Gout Hx Hypertension: Yes Hx Pacemaker: Yes - since 2014 Hx Diabetes: No Hx Cancer: No Hx Gastrointestinal Problems: No Hx Dialysis: No Hx Neurological Problems: Yes Hx Cerebrovascular Accident: Yes - 2011 Hx Seizures: No Review of Systems All Other Systems: negative except mentioned in HPI Physical Exam Sp02 EP Interpretation: reviewed, normal General Appearance: normal inspection, well appearing, no apparent distress, alert, GCS 15, non-toxic Head: atraumatic ENT: normal ENT inspection, hearing grossly normal, normal voice Neck: normal inspection, full range of motion, supple, no bony tend Respiratory: normal inspection, lungs clear, normal breath sounds, no respiratory distress, no retraction, no wheezing Cardiovascular #1: regular rate, rhythm, edema Gastrointestinal: normal inspection, normal bowel sounds, non tender, soft, no guarding, no hernia Genitourinary: no CVA tenderness Musculoskeletal: normal inspection, back normal, normal range of motion Neurologic: normal inspection, alert, oriented x3, responsive, speech normal Psychiatric: normal inspection, judgement/insight normal, mood/affect normal Medical Decision Making Diagnostic Impression: Primary Impression: CHF (congestive heart failure) Additional Impression: ACS (acute coronary syndrome) ER Course Patient presented for shortness of breath. Differential included but was not limited to anemia, pneumonia, pneumothorax, myocardial infarction, pericardial effusion, congestive heart failure, acidosis. Because of complexity of patient' s case laboratory tests and imaging studies were ordered. EKG interpreted by me showed paced rhythm Patient was noted to be taking digoxin and there is some nonspecific changes. Patient was given IV Lasix. Dr. Abdiaziz Pedro was contacted for inpatient management due to prior admission. Labs Test 06/29/19 14:33 White Blood Count 8.7 K/UL (4.8-10.8) Red Blood Count 5.60 M/UL (4.70-6.10) Hemoglobin 11.9 G/DL (14.2-18.0) Hematocrit 40.7 % (42.0-52.0) Mean Corpuscular Volume 73 FL (80-99) Mean Corpuscular Hemoglobin 21.3 PG (27.0-31.0) Mean Corpuscular Hemoglobin Concent 29.3 G/DL (32.0-36.0) Red Cell Distribution Width 25.5 % (11.6-14.8) Platelet Count 241 K/UL (150-450) Mean Platelet Volume 6.0 FL (6.5-10.1) Neutrophils (%) (Auto) 73.3 % (45.0-75.0) Lymphocytes (%) (Auto) 15.2 % (20.0-45.0) Monocytes (%) (Auto) 8.5 % (1.0-10.0) Eosinophils (%) (Auto) 1.7 % (0.0-3.0) Basophils (%) (Auto) 1.4 % (0.0-2.0) Prothrombin Time 10.3 SEC (9.30-11.50) Prothromb Time International Ratio 1.0 (0.9-1.1) Activated Partial Thromboplast Time 21 SEC (23-33) Sodium Level 143 MMOL/L (136-145) Potassium Level 3.8 MMOL/L (3.5-5.1) Chloride Level 106 MMOL/L (98-107) Carbon Dioxide Level 30 MMOL/L (21-32) Anion Gap 7 mmol/L (5-15) Blood Urea Nitrogen 35 mg/dL (7-18) Creatinine 2.2 MG/DL (0.55-1.30) Estimat Glomerular Filtration Rate 30.0 mL/min (>60) Glucose Level 105 MG/DL (74-106) Calcium Level 9.6 MG/DL (8.5-10.1) Total Bilirubin 0.4 MG/DL (0.2-1.0) Aspartate Amino Transf (AST/SGOT) 29 U/L (15-37) Alanine Aminotransferase (ALT/SGPT) 64 U/L (12-78) Alkaline Phosphatase 150 U/L (46-116) Total Creatine Kinase 101 U/L (26-308) Creatine Kinase MB 1.2 NG/ML (0.0-3.6) Creatine Kinase MB Relative Index 1.1 Troponin I 0.000 ng/mL (0.000-0.056) Pro-B-Type Natriuretic Peptide 1690 pg/mL (0-125) Total Protein 9.1 G/DL (6.4-8.2) Albumin 4.0 G/DL (3.4-5.0) Globulin 5.1 g/dL Albumin/Globulin Ratio 0.8 (1.0-2.7) Lipase 432 U/L (73-393) Digoxin Level < 0.2 NG/ML (0.5-2.0) Status: unchanged Disposition: ADMITTED INPATIENT Condition: Stable Ernie Mckeon MD Jun 29, 2019 14:31
[2019-06-29] MEDS ORDERED: XARELTO20 MG ORAL (14:32)
[2019-06-29] MEDS ORDERED: AMIODARONE HCL100 MG ORAL (14:32)
[2019-06-29] MEDS ORDERED: PROTONIX20 MG ORAL (14:32)
[2019-06-29] MEDS ORDERED: ALLOPURINOL100 M1 ORAL (14:32)
[2019-06-29] MEDS ORDERED: DOCUSATE SODIU100 M2 ORAL (14:32)
[2019-06-29] MEDS ORDERED: METOPROLOL SUC100 MG ORAL (14:32)
[2019-06-29] MEDS ORDERED: HYDRALAZINE HCL10 MG ORAL (14:32)
[2019-06-29] MEDS ORDERED: FERROUS SULFAT325 M2 ORAL (14:32)
--- NOTE | 2019-06-29 14:35 | NUR ---
ED Nurse Note: PT. WALKED IN TO ER, PER PT. HE STARTED HAVING CP SINCE LAST NIGHT AROUND 8PM. PT AAOX4, NO RESPIRATORY DISTRESS ON ROOM AIR, SATURATING 100%. ERMD AT BEDSIDE. PT PLACED ON HOSPITAL GOWN, DIRECTOR OF MARKETING AND PROMOTIONS, AND CONT. PULSE OX. IV ON LEFT HAND INTACT AND PATENT. BLOOD COLLECTED AND SENT TO LAB. WILL CONTINUE TO MONITOR PT.
--- NOTE | 2019-06-29 15:00 | NUR ---
ED Nurse Note: xray at bedside.
[2019-06-29 15:01] VITALS: BP 167/86
[2019-06-29 15:10] LABS: BASOPHILS % (AUTO) 1.4 % (0.0-2.0); EOSINOPHILS % (AUTO) 1.7 % (0.0-3.0); HEMATOCRIT 40.7 % (42.0-52.0); HEMOGLOBIN 11.9 G/DL (14.2-18.0); LYMPHOCYTES % (AUTO) 15.2 % (20.0-45.0); MEAN CORPUSCULAR VOLUME 73 FL (80-99); MONOCYTES % (AUTO) 8.5 % (1.0-10.0); NEUTROPHILS % (AUTO) 73.3 % (45.0-75.0); PLATELET COUNT 241 K/UL (150-450); RED CELL DISTRIBUTION WIDTH 25.5 % (11.6-14.8); WHITE BLOOD COUNT 8.7 K/UL (4.8-10.8)
[2019-06-29 15:23] LABS: ANION GAP 7 mmol/L (5-15); BLOOD UREA NITROGEN 35 mg/dL (7-18); CALCIUM 9.6 MG/DL (8.5-10.1); CARBON DIOXIDE 30 MMOL/L (21-32); CHLORIDE 106 MMOL/L (98-107); CREATININE 2.2 MG/DL (0.55-1.30); POTASSIUM 3.8 MMOL/L (3.5-5.1); SODIUM 143 MMOL/L (136-145)
[2019-06-29 15:41] VITALS: BP 181/98
[2019-06-29 15:41] LABS: ALANINE AMINOTRANSFERASE 64 U/L (12-78); ALBUMIN/GLOBULIN RATIO 0.8 (1.0-2.7); ALKALINE PHOSPHATASE 150 U/L (46-116); ASPARTATE AMINO TRANSFERASE 29 U/L (15-37); BILIRUBIN,TOTAL 0.4 MG/DL (0.2-1.0); CKMB 1.2 NG/ML (0.0-3.6); CREATINE KINASE 101 U/L (26-308)
--- NOTE | 2019-06-29 16:30 | Diagnostic Imaging Report ---
Indication: Chest pain Technique: One view of the chest Comparison: 07/02/2018 Findings: Left chest AICD again demonstrated. The heart is enlarged. Lungs and pleural spaces are clear. Impression: No acute process
[2019-06-29 16:34] VITALS: BP 161/69
[2019-06-29] MEDS ORDERED: Morphine Sulfate 4mg/ml Inj (IV USE ONLY) IVP PRN (17:00)
[2019-06-29] MEDS ORDERED: LORazepam Inj 2mg/ml 1ml IV PRN (17:00)
[2019-06-29] MEDS ORDERED: Albuterol/Ipratropium 3ml neb HHN PRN ×2 (17:00)
[2019-06-29] MEDS ORDERED: Miralax 17gm pkt ORAL PRN ×2 (17:00)
--- NOTE | 2019-06-29 17:15 | NUR ---
TRANSFER TO FLOOR: Patient transferred to Telemetry room 214-2 as ordered, per Dr Pedro. Report given to Jamie LORENZANA. Belongings inventoried, list signed by pt and receiving nurse. Medications given to pharmacy. Transferred via gurney on alarm security or surveillance monitor accompanied by RN and records technician. Pt in stable condition.
--- NOTE | 2019-06-29 19:21 | NUR ---
CASE MANAGEMENT: REVIEW 69Y/MALE PRESENTED TO ED FROM HOME CC: CHEST PAIN X1 DAY . Hx CHF , CURRENTLY TAKING XARELTO & DIGOXIN SI: CHF . T 98.6 HR 60 RR 19 BP 195/91 SAT 99% ROOM AIR BUN 35 CR 2.2 BNP 1690 LIPASE 432 PT/INR 10.3/1.0 APTT 21 IS: LASIX 20MG IV X1 ASA 162MG PO X1 PATIENT ADMITTED TO TELEMETRY UNIT 06/29/2019 DCP: PATIENT IS FROM HOME
[2019-06-29 19:26] VITALS: BP 153/89
--- NOTE | 2019-06-29 19:34 | NUR ---
Patient arrived on floor at 530pm. VSS with calm, cooperative affect. AOX4 and skin completely intact and dry. Patient walked to toilet after lasix with steady gait. Tolerated 100% of dinner with no NVD. No sign of cardiac or respiratory distress. Patient breathing easily on RA. SCDs in room. Oriented to floor and room. Bed in lowest locked position with urinal and call bragg in reach. Addendum: 06/29/19 at 2021 by Kahlil Love RN Endorsed to night Venkatesh LORENZANA, that patient admission yet to be completed and RN agreed to complete admission.
--- NOTE | 2019-06-29 19:45 | NUR ---
NURSE NOTES: Got report from Jamie LORENZANA. Pt in stable condition. Denies any pain. No s/s of distress or discomfort noted. Pt resting in bed comfortably. Bed and locked position, call light within reach, bedside table within reach. Continue to monitor.
[2019-06-29 20:00] VITALS: BP 148/74
--- NOTE | 2019-06-29 20:45 | History & Physical ---
History and Physical History & Physicial Dictated for Int Med-Jeremy De MD Jun 29, 2019 20:45
[2019-06-29] MEDS: Amiodarone 200mg tab ORAL SCH (21:35)
[2019-06-29] MEDS: HydrALAZINE 10mg Tab ORAL SCH (21:35)
[2019-06-30] VITALS: BP 144/77
[2019-06-30 04:00] VITALS: BP 142/72
[2019-06-30] MEDS: HydrALAZINE 10mg Tab ORAL SCH ×3 (05:41→21:22)
[2019-06-30] MEDS: Amiodarone 200mg tab ORAL SCH ×3 (05:41→21:18)
--- NOTE | 2019-06-30 07:00 | NUR ---
HAND-OFF: Report given to Chris LORENZANA. endorsed plan of care.
[2019-06-30 07:42] LABS: BASOPHILS % (AUTO) 0.9 % (0.0-2.0); EOSINOPHILS % (AUTO) 3.6 % (0.0-3.0); HEMOGLOBIN 10.7 G/DL (14.2-18.0); LYMPHOCYTES % (AUTO) 18.8 % (20.0-45.0); MEAN CORPUSCULAR VOLUME 72 FL (80-99); NEUTROPHILS % (AUTO) 66.8 % (45.0-75.0); PLATELET COUNT 273 K/UL (150-450); RED BLOOD COUNT 5.02 M/UL (4.70-6.10); RED CELL DISTRIBUTION WIDTH 25.9 % (11.6-14.8); WHITE BLOOD COUNT 6.4 K/UL (4.8-10.8)
--- NOTE | 2019-06-30 08:03 | NUR ---
NURSE NOTES: Pt in bed sitting in low position, Ox4, Syrian Speaker, call light at bedside, pt calm and cooperative, IV intact and patent, did complain of left lower chest pain 4/10 at around the rib area, stated that it comes goes when he drinks, pt eating breakfast no s/s of distress or sob noted.
[2019-06-30 08:14] LABS: ALBUMIN 3.6 G/DL (3.4-5.0); ANION GAP 9 mmol/L (5-15); BLOOD UREA NITROGEN 30 mg/dL (7-18); CALCIUM 9.1 MG/DL (8.5-10.1); CARBON DIOXIDE 29 MMOL/L (21-32); CHLORIDE 105 MMOL/L (98-107); CREATININE 1.9 MG/DL (0.55-1.30); PHOSPHORUS 4.2 MG/DL (2.5-4.9); POTASSIUM 3.3 MMOL/L (3.5-5.1); SODIUM 143 MMOL/L (136-145)
[2019-06-30 08:23] VITALS: BP 165/89
[2019-06-30] MEDS ORDERED: Xarelto 10mg tab ORAL SCH (09:00)
[2019-06-30] MEDS: Allopurinol 100mg Tab ORAL SCH (09:47)
[2019-06-30] MEDS: Ascorbic Acid 500mg tab ORAL SCH (09:47)
[2019-06-30] MEDS: Aspirin EC 81mg tab ORAL SCH (09:47)
[2019-06-30] MEDS: Losartan 50mg tab ORAL SCH (09:48)
--- NOTE | 2019-06-30 09:54 | NUR ---
*-* NO INSURANCE INFORMATION ON THE BAR UNABLE TO SEND CLINICALS OR REVIEWS *-*
--- NOTE | 2019-06-30 10:38 | Diagnostic Imaging Report ---
Indication: Shortness of breath Technique: One view of the chest Comparison: 06/29/2019 Findings: There is a left chest bifocal and ICD again demonstrated. The heart is borderline enlarged. The aorta is tortuous and ectatic. Lungs and pleural spaces are clear. Impression: No acute process
--- NOTE | 2019-06-30 11:18 | NUR ---
RADIOLOGY DEPT., CHEST X-RAY DONE.-P.DYE
[2019-06-30 11:52] VITALS: BP 160/96
--- NOTE | 2019-06-30 12:16 | Consultation ---
History of Present Illness General Date patient seen: Jun 30, 2019 Chief Complaint: Chest Pain Present Illness HPI 69 year old male with hx of ICD and pacemaker, CHF who is usually followed at [facility] brought in by paramedics with cc of chest pain and shortness of breath. He has chest pain since he got a shock at [facility]. His cxr didn't show any pulmonary edema. He is admitted to telemetry because of his high risk condition. Allergies: Coded Allergies: No Known Allergies (Verified , 03/15/10) Medication History Scheduled Allopurinol* (Allopurinol*), 100 MG ORAL DAILY, (Reported) Amiodarone Hcl (Amiodarone Hcl), 200 MG ORAL EVERY 8 HOURS, (Reported) Amlodipine Besylate* (Amlodipine Besylate*), 10 MG ORAL DAILY, (Reported) Ascorbic Acid* (Vitamin C*), 500 MG ORAL DAILY Aspirin* (Aspir-Low*), 81 MG PO DAILY, (Reported) Atorvastatin Calcium* (Atorvastatin Calcium*), 10 MG ORAL BEDTIME, (Reported) Carvedilol* (Carvedilol*), 25 MG ORAL BID, (Reported) Colchicine (Colchicine), 0.6 MG PO DAILY Colchicine (Colchicine), 0.6 MG PO DAILY Digoxin* (Digoxin*), 0.125 MG ORAL DAILY, (Reported) Docusate Sodium (Docusate Sodium), 100 MG ORAL DAILY, (Reported) Furosemide* (Lasix*), 40 MG PO DAILY, (Reported) Hydralazine Hcl* (Hydralazine Hcl*), 10 MG ORAL EVERY 8 HOURS, (Reported) Losartan Potassium* (Losartan Potassium*), 100 MG ORAL DAILY, (Reported) Metoprolol Succinate* (Metoprolol Succinate*), 100 MG ORAL DAILY, (Reported) Omeprazole (Omeprazole), 20 MG ORAL DAILY, (Reported) Pantoprazole Sodium (Protonix), 40 MG ORAL DAILY, (Reported) Rivaroxaban (Xarelto*), 20 MG ORAL DAILY, (Reported) Spironolactone* (Spironolactone*), 12.5 MG ORAL DAILY, (Reported) Warfarin Sod* (Coumadin*), 2 MG PO DAILY, (Reported) Scheduled PRN Hydrocodone Bit/Acetaminophen 5-325* (Shevlin 5-325*), 1 TAB ORAL Q6H PRN for For Pain Miscellaneous Medications Benazepril Hcl* (Benazepril Hcl*), 40 MG ORAL, (Reported) Ferrous Sulfate (Ferrous Sulfate), 325 MG ORAL, (Reported) Rivaroxaban (Xarelto), 20 MG ORAL, (Reported) Spironolactone* (Spironolactone*), 25 MG ORAL, (Reported) Patient History Healthcare decision maker N Resuscitation status Full Code Advanced Directive on File Review of Systems All Other Systems: negative except mentioned in HPI Physical Exam General Appearance: WD/WN, alert Lines, tubes and drains: peripheral HEENT: normocephalic, anicteric Neck: non-tender, normal alignment Respiratory/Chest: chest wall non-tender, lungs clear Cardiovascular/Chest: normal peripheral pulses, normal rate Abdomen: normal bowel sounds, no organomegaly Genitourinary/Rectal: normal genital exam Skin Exam: normal pigmentation 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 Last 24 Hour Vital Signs Date Time Temp Pulse Resp B/P (MAP) Pulse Ox O2 Delivery O2 Flow Rate FiO2 06/30/19 11:52 98.5 68 18 160/96 (117) 96 06/30/19 09:48 165/89 06/30/19 09:47 63 165/89 06/30/19 08:41 Room Air 06/30/19 08:23 96.8 63 18 165/89 (114) 98 06/30/19 07:54 60 06/30/19 05:41 142/72 06/30/19 04:00 97.8 62 18 142/72 (95) 98 06/30/19 04:00 60 06/30/19 00:00 60 06/30/19 00:00 98.2 60 18 144/77 (99) 97 06/29/19 22:50 Room Air 06/29/19 22:37 Room Air 06/29/19 21:35 148/74 06/29/19 21:06 62 18 94 Room Air 21 06/29/19 20:00 60 06/29/19 20:00 98.2 60 18 148/74 (98) 98 06/29/19 19:36 Room Air 06/29/19 19:26 98.4 60 18 153/89 (110) 95 06/29/19 17:37 98.6 60 16 151/76 98 Room Air 06/29/19 16:34 98.6 60 16 161/69 97 Room Air 06/29/19 15:41 98.6 60 16 181/98 100 Room Air 06/29/19 15:01 60 19 Room Air 06/29/19 15:01 98.6 60 19 167/86 99 Room Air 06/29/19 14:25 98.6 60 19 195/91 (125) 99 Room Air Intake and Output 06/29/19 06/30/19 19:00 07:00 Intake Total 0 ml 780 ml Balance 0 ml 780 ml Intake Oral 0 ml 780 ml # Voids 7 Laboratory Tests Test 06/29/19 14:33 06/29/19 17:26 06/30/19 06:21 White Blood Count 8.7 K/UL (4.8-10.8) 6.4 K/UL (4.8-10.8) Red Blood Count 5.60 M/UL (4.70-6.10) 5.02 M/UL (4.70-6.10) Hemoglobin 11.9 G/DL (14.2-18.0) L 10.7 G/DL (14.2-18.0) L Hematocrit 40.7 % (42.0-52.0) L 36.0 % (42.0-52.0) L Mean Corpuscular Volume 73 FL (80-99) L 72 FL (80-99) L Mean Corpuscular Hemoglobin 21.3 PG (27.0-31.0) L 21.3 PG (27.0-31.0) L Mean Corpuscular Hemoglobin Concent 29.3 G/DL (32.0-36.0) L 29.6 G/DL (32.0-36.0) L Red Cell Distribution Width 25.5 % (11.6-14.8) H 25.9 % (11.6-14.8) H Platelet Count 241 K/UL (150-450) 273 K/UL (150-450) Mean Platelet Volume 6.0 FL (6.5-10.1) L 6.6 FL (6.5-10.1) Neutrophils (%) (Auto) 73.3 % (45.0-75.0) 66.8 % (45.0-75.0) Lymphocytes (%) (Auto) 15.2 % (20.0-45.0) L 18.8 % (20.0-45.0) L Monocytes (%) (Auto) 8.5 % (1.0-10.0) 10.0 % (1.0-10.0) Eosinophils (%) (Auto) 1.7 % (0.0-3.0) 3.6 % (0.0-3.0) H Basophils (%) (Auto) 1.4 % (0.0-2.0) 0.9 % (0.0-2.0) Prothrombin Time 10.3 SEC (9.30-11.50) Prothromb Time International Ratio 1.0 (0.9-1.1) Activated Partial Thromboplast Time 21 SEC (23-33) L Sodium Level 143 MMOL/L (136-145) 143 MMOL/L (136-145) Potassium Level 3.8 MMOL/L (3.5-5.1) 3.3 MMOL/L (3.5-5.1) L Chloride Level 106 MMOL/L (98-107) 105 MMOL/L (98-107) Carbon Dioxide Level 30 MMOL/L (21-32) 29 MMOL/L (21-32) Anion Gap 7 mmol/L (5-15) 9 mmol/L (5-15) Blood Urea Nitrogen 35 mg/dL (7-18) H 30 mg/dL (7-18) H Creatinine 2.2 MG/DL (0.55-1.30) H 1.9 MG/DL (0.55-1.30) H Estimat Glomerular Filtration Rate 30.0 mL/min (>60) 35.5 mL/min (>60) Glucose Level 105 MG/DL (74-106) 85 MG/DL (74-106) Calcium Level 9.6 MG/DL (8.5-10.1) 9.1 MG/DL (8.5-10.1) Total Bilirubin 0.4 MG/DL (0.2-1.0) Aspartate Amino Transf (AST/SGOT) 29 U/L (15-37) Alanine Aminotransferase (ALT/SGPT) 64 U/L (12-78) Alkaline Phosphatase 150 U/L (46-116) H Total Creatine Kinase 101 U/L (26-308) Creatine Kinase MB 1.2 NG/ML (0.0-3.6) Creatine Kinase MB Relative Index 1.1 Troponin I 0.000 ng/mL (0.000-0.056) Pro-B-Type Natriuretic Peptide 1690 pg/mL (0-125) H Total Protein 9.1 G/DL (6.4-8.2) H Albumin 4.0 G/DL (3.4-5.0) 3.6 G/DL (3.4-5.0) Globulin 5.1 g/dL Albumin/Globulin Ratio 0.8 (1.0-2.7) L Lipase 432 U/L (73-393) H Digoxin Level < 0.2 NG/ML (0.5-2.0) L Arterial Blood pH 7.446 (7.350-7.450) Arterial Blood Partial Pressure CO2 40.4 mmHg (35.0-45.0) Arterial Blood Partial Pressure O2 84.1 mmHg (75.0-100.0) Arterial Blood HCO3 27.2 mmol/L (22.0-26.0) H Arterial Blood Oxygen Saturation 96.1 % (95-100) Arterial Blood Base Excess 2.9 (-2-2) H Filiberto Test Positive Phosphorus Level 4.2 MG/DL (2.5-4.9) Height (Feet): 5 Height (Inches): 7.00 Weight (Pounds): 220 Medications Current Medications Medications (Trade) Dose Ordered Sig/Ronnie Route PRN Reason Start Time Stop Time Status Last Admin Dose Admin Acetaminophen (Tylenol) 650 mg Q4H PRN ORAL Fever 06/29/19 17:00 07/29/19 16:59 Albuterol/ Ipratropium (Albuterol/ Ipratropium) 3 ml Q4H PRN HHN Shortness of Breath 06/29/19 17:00 07/04/19 16:59 Allopurinol (Zyloprim) 100 mg DAILY ORAL 06/30/19 09:00 07/30/19 08:59 06/30/19 09:47 Amiodarone HCl (Cordarone) 200 mg EVERY 8 HOURS ORAL 06/29/19 22:00 07/29/19 21:59 06/30/19 05:41 Amlodipine Besylate (Norvasc) 10 mg DAILY ORAL 06/30/19 09:00 07/30/19 08:59 06/30/19 09:47 Ascorbic Acid (Vitamin C) 500 mg DAILY ORAL 06/30/19 09:00 07/30/19 08:59 06/30/19 09:47 Aspirin (Ecotrin) 81 mg DAILY ORAL 06/30/19 09:00 07/30/19 08:59 06/30/19 09:47 Dextrose (Dextrose 50%) 25 ml Q30M PRN IV Hypoglycemia 06/29/19 17:00 07/29/19 16:59 Dextrose (Dextrose 50%) 50 ml Q30M PRN IV Hypoglycemia 06/29/19 17:00 07/29/19 16:59 Furosemide (Lasix) 40 mg EVERY 8 HOURS IV 06/29/19 17:15 07/29/19 17:14 06/29/19 18:48 Hydralazine HCl (Apresoline) 10 mg EVERY 8 HOURS ORAL 06/29/19 22:00 07/29/19 21:59 06/30/19 05:41 Lorazepam (Ativan 2mg/ml 1ml) 2 mg Q4H PRN IV For Anxiety 06/29/19 17:00 07/06/19 16:59 Losartan Potassium (Cozaar) 100 mg DAILY ORAL 06/30/19 09:00 07/30/19 08:59 06/30/19 09:48 Morphine Sulfate (Morphine Sulfate) 4 mg Q4H PRN IVP For Pain 06/29/19 17:00 07/06/19 16:59 Ondansetron HCl (Zofran) 4 mg Q6H PRN IVP Nausea & Vomiting 06/29/19 17:00 07/29/19 16:59 Polyethylene Glycol (Miralax) 17 gm DAILYPRN PRN ORAL Constipation 06/29/19 17:00 07/29/19 16:59 Rivaroxaban (Xarelto) 15 mg QPM ORAL 06/30/19 16:30 07/30/19 16:29 Temazepam (Restoril) 15 mg HSPRN PRN ORAL Insomnia 06/29/19 17:00 07/06/19 16:59 Assessment/Plan Problem List: (1) Chest pain ICD Codes: R07.9 - Chest pain, unspecified SNOMED: 25482429 (2) ICD (implantable cardioverter-defibrillator) in place ICD Codes: Z95.810 - Presence of automatic (implantable) cardiac defibrillator SNOMED: 814991091 (3) History of pacemaker ICD Codes: Z86.79 - History of pacemaker SNOMED: 703113372 (4) HTN (hypertension) ICD Codes: I10 - HTN (hypertension) SNOMED: 39133727 Assessment/Plan: cardiology evaluation optimize cardiac meds diuretics symptomatic treatment Mykel Denton MD Jun 30, 2019 12:16
--- NOTE | 2019-06-30 14:53 | Cardiology Progress Note ---
Assessment/Plan Assessment/Plan atypical cp which he has had for a while followed by [facility] trop neg he has a hs of vishal pain at [facility] [place] apparently been evluated pain not seem exertional echo doen to review pain not seem to be exertional ekg unchanged since 2012 maybe if trop remain neg to fu with [facility] [place] for further evaluation in future (he may have had testing done) [id number] and [id number] Objective Last 24 Hour Vital Signs Date Time Temp Pulse Resp B/P (MAP) Pulse Ox O2 Delivery O2 Flow Rate FiO2 06/30/19 13:28 69 18 95 Room Air 21 06/30/19 13:07 160/96 06/30/19 11:52 98.5 68 18 160/96 (117) 96 06/30/19 11:25 60 06/30/19 09:48 165/89 06/30/19 09:47 63 165/89 06/30/19 08:41 Room Air 06/30/19 08:23 96.8 63 18 165/89 (114) 98 06/30/19 07:54 60 06/30/19 05:41 142/72 06/30/19 04:00 97.8 62 18 142/72 (95) 98 06/30/19 04:00 60 06/30/19 00:00 60 06/30/19 00:00 98.2 60 18 144/77 (99) 97 06/29/19 22:50 Room Air 06/29/19 22:37 Room Air 06/29/19 21:35 148/74 06/29/19 21:06 62 18 94 Room Air 21 06/29/19 20:00 60 06/29/19 20:00 98.2 60 18 148/74 (98) 98 06/29/19 19:36 Room Air 06/29/19 19:26 98.4 60 18 153/89 (110) 95 06/29/19 17:37 98.6 60 16 151/76 98 Room Air 06/29/19 16:34 98.6 60 16 161/69 97 Room Air 06/29/19 15:41 98.6 60 16 181/98 100 Room Air 06/29/19 15:01 60 19 Room Air 06/29/19 15:01 98.6 60 19 167/86 99 Room Air Intake and Output 06/29/19 06/30/19 19:00 07:00 Intake Total 0 ml 780 ml Balance 0 ml 780 ml Intake Oral 0 ml 780 ml # Voids 7 Laboratory Tests Test 06/29/19 17:26 06/30/19 06:21 06/30/19 14:30 Arterial Blood pH 7.446 (7.350-7.450) Arterial Blood Partial Pressure CO2 40.4 mmHg (35.0-45.0) Arterial Blood Partial Pressure O2 84.1 mmHg (75.0-100.0) Arterial Blood HCO3 27.2 mmol/L (22.0-26.0) H Arterial Blood Oxygen Saturation 96.1 % (95-100) Arterial Blood Base Excess 2.9 (-2-2) H Filiberto Test Positive White Blood Count 6.4 K/UL (4.8-10.8) Red Blood Count 5.02 M/UL (4.70-6.10) Hemoglobin 10.7 G/DL (14.2-18.0) L Hematocrit 36.0 % (42.0-52.0) L Mean Corpuscular Volume 72 FL (80-99) L Mean Corpuscular Hemoglobin 21.3 PG (27.0-31.0) L Mean Corpuscular Hemoglobin Concent 29.6 G/DL (32.0-36.0) L Red Cell Distribution Width 25.9 % (11.6-14.8) H Platelet Count 273 K/UL (150-450) Mean Platelet Volume 6.6 FL (6.5-10.1) Neutrophils (%) (Auto) 66.8 % (45.0-75.0) Lymphocytes (%) (Auto) 18.8 % (20.0-45.0) L Monocytes (%) (Auto) 10.0 % (1.0-10.0) Eosinophils (%) (Auto) 3.6 % (0.0-3.0) H Basophils (%) (Auto) 0.9 % (0.0-2.0) Sodium Level 143 MMOL/L (136-145) Potassium Level 3.3 MMOL/L (3.5-5.1) L Chloride Level 105 MMOL/L (98-107) Carbon Dioxide Level 29 MMOL/L (21-32) Anion Gap 9 mmol/L (5-15) Blood Urea Nitrogen 30 mg/dL (7-18) H Creatinine 1.9 MG/DL (0.55-1.30) H Estimat Glomerular Filtration Rate 35.5 mL/min (>60) Glucose Level 85 MG/DL (74-106) Calcium Level 9.1 MG/DL (8.5-10.1) Phosphorus Level 4.2 MG/DL (2.5-4.9) Troponin I 0.000 ng/mL (0.000-0.056) Pending Albumin 3.6 G/DL (3.4-5.0) Nigel Rubio MD Jun 30, 2019 14:53
[2019-06-30 16:00] VITALS: BP 146/71
--- NOTE | 2019-06-30 16:23 | Cardiology Report ---
APPROVED REPORT EXAM: Two-dimensional and M-mode echocardiogram with Doppler and color Doppler. INDICATION Left Ventricular Function M-Mode DIMENSIONS IVSd1.6 (0.7-1.1cm)Left Atrium (MM)5.0 (1.6-4.0cm) LVDd6.1 (3.5-5.6cm)Aortic Root3.8 (2.0-3.7cm) PWd1.5 (0.7-1.1cm)Aortic Cusp Exc.1.6 (1.5-2.0cm) LVDs4.1 (2.5-4.0cm) PWs1.8 cm Technically difficult study due to poor acoustical windows and valvular definition. Mild left ventricular enlargement. Wall motion is difficult to see but appears grossly normal Left ventricular ejection fraction cannot be adequately estimated due to poor visualiztion of endocardium. Study quality precludes accurate assessment of regional wall motion. Mild left ventricular hypertrophy. No evidence of pericardial effusion. Moderate bi-atrial enlargement. Right ventricular chamber size is within normal limits. Focal aortic valve sclerosis with adequate cusp excursion. Thickened mitral valve leaflets with normal excursion. Mitral annulus and aortic root calcification. Normal pulmonic valve structure. Normal tricuspid valve structure. IVC at normal size with physiologic collapse. Pacemaker wire present in the right side chambers. A color flow and spectral Doppler study was performed and revealed: Trace aortic regurgitation. Mild mitral regurgitation. Mitral diastolic velocities suggest reduced left ventricular relaxation c/w mild LV diastolic dysfunction (Grade I). Mild tricuspid regurgitation. Tricuspid systolic velocities suggests peak right ventricular systolic pressure of 27 mmHg. Trace pulmonic regurgitation present.
[2019-06-30] MEDS ORDERED: Xarelto 15mg tab ORAL SCH (16:30)
--- NOTE | 2019-06-30 16:33 | Internal Med Progress Note ---
Subjective Date of Service: Jun 30, 2019 Physician Name Jeremy Hanson Attending Physician Abdiaziz Pedro MD Current Medications Medications (Trade) Dose Ordered Sig/Ronnie Route PRN Reason Start Time Stop Time Status Last Admin Dose Admin Acetaminophen (Tylenol) 650 mg Q4H PRN ORAL Fever 06/29/19 17:00 07/29/19 16:59 Albuterol/ Ipratropium (Albuterol/ Ipratropium) 3 ml Q4H PRN HHN Shortness of Breath 06/29/19 17:00 07/04/19 16:59 Allopurinol (Zyloprim) 100 mg DAILY ORAL 06/30/19 09:00 07/30/19 08:59 06/30/19 09:47 Amiodarone HCl (Cordarone) 200 mg EVERY 8 HOURS ORAL 06/29/19 22:00 07/29/19 21:59 06/30/19 13:07 Amlodipine Besylate (Norvasc) 10 mg DAILY ORAL 06/30/19 09:00 07/30/19 08:59 06/30/19 09:47 Ascorbic Acid (Vitamin C) 500 mg DAILY ORAL 06/30/19 09:00 07/30/19 08:59 06/30/19 09:47 Aspirin (Ecotrin) 81 mg DAILY ORAL 06/30/19 09:00 07/30/19 08:59 06/30/19 09:47 Dextrose (Dextrose 50%) 25 ml Q30M PRN IV Hypoglycemia 06/29/19 17:00 07/29/19 16:59 Dextrose (Dextrose 50%) 50 ml Q30M PRN IV Hypoglycemia 06/29/19 17:00 07/29/19 16:59 Furosemide (Lasix) 40 mg EVERY 8 HOURS IV 06/29/19 17:15 07/29/19 17:14 06/30/19 13:08 Hydralazine HCl (Apresoline) 10 mg EVERY 8 HOURS ORAL 06/29/19 22:00 07/29/19 21:59 06/30/19 13:07 Lorazepam (Ativan 2mg/ml 1ml) 2 mg Q4H PRN IV For Anxiety 06/29/19 17:00 07/06/19 16:59 Losartan Potassium (Cozaar) 100 mg DAILY ORAL 06/30/19 09:00 07/30/19 08:59 06/30/19 09:48 Morphine Sulfate (Morphine Sulfate) 4 mg Q4H PRN IVP For Pain 06/29/19 17:00 07/06/19 16:59 Ondansetron HCl (Zofran) 4 mg Q6H PRN IVP Nausea & Vomiting 06/29/19 17:00 07/29/19 16:59 Polyethylene Glycol (Miralax) 17 gm DAILYPRN PRN ORAL Constipation 06/29/19 17:00 07/29/19 16:59 Rivaroxaban (Xarelto) 15 mg QPM ORAL 06/30/19 16:30 07/30/19 16:29 Temazepam (Restoril) 15 mg HSPRN PRN ORAL Insomnia 06/29/19 17:00 07/06/19 16:59 Allergies: Coded Allergies: No Known Allergies (Verified , 03/15/10) ROS Limited/Unobtainable: No Constitutional: Reports: no symptoms Cardiovascular: Reports: chest pain Respiratory: Reports: no symptoms Gastrointestinal/Abdominal: Reports: no symptoms Genitourinary: Reports: no symptoms Neurologic/Psychiatric: Reports: no symptoms Subjective 69 YO M admitted with chest pain. Now CHF. Cover for Int Med-Dr Pedro Objective Last Vital Signs Date Time Temp Pulse Resp B/P (MAP) Pulse Ox O2 Delivery O2 Flow Rate FiO2 06/30/19 13:28 69 18 95 Room Air 21 06/30/19 13:07 160/96 06/30/19 11:52 98.5 General Appearance: WD/WN, no apparent distress, alert EENT: PERRL/EOMI, normal ENT inspection Neck: non-tender, normal alignment, supple Cardiovascular: normal peripheral pulses, normal rate, regular rhythm, no gallop/murmur, no JVD Respiratory/Chest: chest wall non-tender, lungs clear, normal breath sounds, no respiratory distress, no accessory muscle use Abdomen: normal bowel sounds, non tender, soft, no organomegaly, no mass Extremities: normal range of motion, non-tender 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, no motor/sensory deficits Skin: normal pigmentation, warm/dry Laboratory Tests Test 06/29/19 17:26 06/30/19 06:21 06/30/19 14:30 Arterial Blood pH 7.446 (7.350-7.450) Arterial Blood Partial Pressure CO2 40.4 mmHg (35.0-45.0) Arterial Blood Partial Pressure O2 84.1 mmHg (75.0-100.0) Arterial Blood HCO3 27.2 mmol/L (22.0-26.0) H Arterial Blood Oxygen Saturation 96.1 % (95-100) Arterial Blood Base Excess 2.9 (-2-2) H Filiberto Test Positive White Blood Count 6.4 K/UL (4.8-10.8) Red Blood Count 5.02 M/UL (4.70-6.10) Hemoglobin 10.7 G/DL (14.2-18.0) L Hematocrit 36.0 % (42.0-52.0) L Mean Corpuscular Volume 72 FL (80-99) L Mean Corpuscular Hemoglobin 21.3 PG (27.0-31.0) L Mean Corpuscular Hemoglobin Concent 29.6 G/DL (32.0-36.0) L Red Cell Distribution Width 25.9 % (11.6-14.8) H Platelet Count 273 K/UL (150-450) Mean Platelet Volume 6.6 FL (6.5-10.1) Neutrophils (%) (Auto) 66.8 % (45.0-75.0) Lymphocytes (%) (Auto) 18.8 % (20.0-45.0) L Monocytes (%) (Auto) 10.0 % (1.0-10.0) Eosinophils (%) (Auto) 3.6 % (0.0-3.0) H Basophils (%) (Auto) 0.9 % (0.0-2.0) Sodium Level 143 MMOL/L (136-145) Potassium Level 3.3 MMOL/L (3.5-5.1) L Chloride Level 105 MMOL/L (98-107) Carbon Dioxide Level 29 MMOL/L (21-32) Anion Gap 9 mmol/L (5-15) Blood Urea Nitrogen 30 mg/dL (7-18) H Creatinine 1.9 MG/DL (0.55-1.30) H Estimat Glomerular Filtration Rate 35.5 mL/min (>60) Glucose Level 85 MG/DL (74-106) Calcium Level 9.1 MG/DL (8.5-10.1) Phosphorus Level 4.2 MG/DL (2.5-4.9) Troponin I 0.000 ng/mL (0.000-0.056) 0.005 ng/mL (0.000-0.056) Albumin 3.6 G/DL (3.4-5.0) Intake and Output 06/29/19 06/30/19 19:00 07:00 Intake Total 0 ml 780 ml Balance 0 ml 780 ml Intake Oral 0 ml 780 ml # Voids 7 Assessment/Plan Problem List: (1) Chest pain Assessment & Plan: Serial troponin neg. See cardiology note. (2) GERD (gastroesophageal reflux disease) (3) Atrial fibrillation Assessment & Plan: Continue Amiodarone and xarelto-see cardiology note. (4) CHF (congestive heart failure) Assessment & Plan: BNP>1900. S/P AICD (5) HTN (hypertension) Assessment & Plan: Continue norvasc and coreg (6) History of pacemaker (7) Gout Status: progressing Jeremy Hanson MD Jun 30, 2019 16:33
--- NOTE | 2019-06-30 19:00 | History and Physical Report ---
DATE OF ADMISSION: 06/29/2019 CHIEF COMPLAINT: The patient is a 69-year-old male, who presents with a chief complaint of chest pain and high blood pressure. HISTORY OF PRESENT ILLNESS: Began on Friday, June 28, 2019. The patient began to experience left-sided chest pain. There was no radiation to the jaw or to the left shoulder. The patient states chest pain lasted about 2 hours. Chest pain occurred at rest. The patient also stated that he had "elevated blood pressure." When asked how he determined he had high blood pressure, he stated he just knew. The patient presented to [facility] emergency room. The patient is admitted with a chief complaint of chest pain to rule out acute coronary syndrome. PAST MEDICAL HISTORY: Significant for: 1. Atrial fibrillation. 2. Hypertension. 3. Gout. PAST SURGICAL HISTORY: The patient denies. CURRENT MEDICATIONS: 1. Allopurinol 100 mg p.o. daily. 2. Amiodarone 200 mg p.o. twice daily. 3. Amlodipine 10 mg p.o. daily. 4. Vitamin C 500 mg p.o. daily. 5. Aspirin 81 mg p.o. daily. 6. Atorvastatin 20 mg p.o. at bedtime. 7. Benazepril 40 mg p.o. daily. 8. Carvedilol 25 mg p.o. twice daily. 9. Colchicine 0.6 mg p.o. daily. 10. Digoxin 0.125 mg p.o. daily. 11. Iron sulfate 325 mg p.o. daily. 12. Lasix 40 mg p.o. daily. 13. Hydralazine 10 mg p.o. q.8 hours. 14. Losartan 100 mg p.o. daily. 15. Metoprolol 100 mg p.o. daily. 16. Omeprazole 20 mg p.o. daily. 17. Xarelto 20 mg p.o. daily. 18. Spironolactone 25 mg p.o. daily. ALLERGIES: No known drug allergies. SOCIAL HISTORY: The patient is single and lives with a roommate. The patient denies tobacco use. The patient denies alcohol use having quit in . REVIEW OF SYSTEMS: CONSTITUTIONAL: The patient denies weight loss or weight gain. The patient denies fevers or chills. HEENT: The patient denies ear or throat pain. The patient denies headache. CARDIOVASCULAR: The patient complains of chest pain as above. The patient denies palpitations. ABDOMINAL: The patient denies nausea, vomiting, diarrhea, or constipation. GENITOURINARY: The patient denies dysuria or increased frequency of urination. NEUROMUSCULAR: The patient denies seizures or generalized weakness. PHYSICAL EXAMINATION: VITAL SIGNS: Temperature 98.5, respirations 18, pulse 68, and blood pressure 160/96. GENERAL: The patient is a well-developed and well-nourished male, in no apparent distress. HEENT: Eyes, pupils are equal and responsive to light and accommodation. Extraocular movements are intact. NECK: Supple without lymphadenopathy. CHEST: Lungs are clear to auscultation bilaterally without wheezes or rales. CARDIOVASCULAR: Regular rhythm and rate. S1 and S2 are normal without murmurs, rubs, or gallops. ABDOMEN: Soft, nontender, and nondistended. Positive bowel sounds. No evidence of hepatosplenomegaly. Currently, no rebound or guarding noted. EXTREMITIES: Negative for clubbing, cyanosis, or edema. RECTAL/GENITAL: Not performed. NEUROLOGIC: Cranial nerves II through XII are grossly intact without focal deficits. Motor strength is 5/5 bilaterally. Deep tendon reflexes are 2+ plantar. LABORATORY STUDIES: WBC 8.2, hemoglobin 11.9, hematocrit 40.7, and platelets 221,000. Sodium 143, potassium 3.8, chloride 106, CO2 30, BUN 35, creatinine 2.2, and glucose 105. Troponin 0.0. BNP elevated at 1690. An EKG demonstrated sinus rhythm at approximately 60 beats per minute. There are no acute ST changes or Q-waves noted. Chest x-ray was reported as no acute disease. ASSESSMENT: This is a 69-year-old male. 1. Chest pain. 2. Acute on chronic congestive heart failure. 3. Atrial fibrillation. 4. Renal failure. 5. Uncontrolled hypertension. 6. Gout. 7. Hypercholesterolemia. 8. Gastroesophageal reflux disease. TREATMENT: 1. Chest pain/congestive heart failure. Cardiology consultation has been obtained with Dr. Nigel Rubio. An echocardiogram is pending. We will follow recommendations of Cardiology. Serial troponin levels will be performed to rule out acute coronary syndrome. 2. Atrial fibrillation. Continue digoxin as above. 3. Renal failure. A Nephrology consultation has been obtained with Dr. Fouladian. 4. Uncontrolled hypertension. Continue benazepril and Coreg as above. 5. Hypercholesterolemia. Continue atorvastatin as above. 6. Gout. Continue allopurinol as above. 7. Gastroesophageal reflux disease. Continue omeprazole as above. Jeremy Hanson M.D. DR: BRITTNI JOB#: [id number] CC:
--- NOTE | 2019-06-30 19:07 | NUR ---
HAND-OFF: Report given to Maia Hernandez.
--- NOTE | 2019-06-30 19:08 | NUR ---
NURSE NOTES: Received report from HARRIETT Perez. Patient is asleep, lying in semi-robbins's; resting comfortably; arousable to name. A/O x4. Primarily [place] speaking. Denies pain at this time. No signs of acute cardiorespiratory distress noted. Checked IV site and flushed. No erythema, bleeding or infiltration noted. Bed at lowest position, brakes on, siderails x2. Call light within reach. Will continue to monitor.
--- NOTE | 2019-06-30 19:15 | Consultation ---
DATE OF CONSULTATION: 06/30/2019 NOTE: INCOMPLETE DICTATION CARDIOLOGY CONSULTATION CONSULTING PHYSICIAN: Nigel Rubio M.D. REFERRING PHYSICIANS: 1. Mykel Denton M.D. 2. Abdiaziz Pedro M.D. REASON FOR REFERRAL: Chest pain. HISTORY OF PRESENT ILLNESS: This is a middle-aged gentleman, who is followed at [facility]. Apparently, he was there last week and received 1 unit of blood transfusion. He has a history of multiple other problems. He has been admitted here on prior occasions approximately 1 year ago. He came into the hospital because of chest pain that lasts anywhere from few seconds to few hours in the left side of his chest. He really has not identified any relieving or exacerbating factor, but this morning it occurred after he drank some water. He states he has told his doctor about this pain and no testing has been obtained as far as I could tell. He does have some episodes of shortness of breath waking up at night. He sit up at night. He eventually goes back to bed. He does not use any pillows. There is occasional dizziness on standing. Occasional palpitations. He has been complaining apparently feels like a sharp sensation and not clear if there is any other exacerbating or relieving factors. His last echocardiogram was technically difficult and very poor ____. Previously, he has had an EF in the 25 to 30 percent range on prior occasions. He does have a history of cardiomyopathy and intracardiac defibrillator placement previously. He denies any diabetes. He does have history of high blood pressure. He said he has had history of heart attack, however, he was treated here for approximately 2 weeks. No cancer. No stroke. No hepatitis or tuberculosis. No asthma. No emphysema. No stomach ulcers. No kidney problems, liver problems, or thyroid problems. He has had anemia for which as mentioned he did receive blood transfusion yesterday. He is not allergic to any medications. SOCIAL HISTORY: He does not smoke or drink or use drugs. REVIEW OF SYSTEMS: GASTROINTESTINAL: Denies any nausea, vomiting, diarrhea, or constipation. GENITOURINARY: He denies. PULMONARY: He denies. CONSTITUTIONAL: Denies. PHYSICAL EXAMINATION: GENERAL: Shows to be overweight middle-aged gentleman, in no respiratory distress. NECK: Supple. No jugular venous distention. LUNGS: Appear to be clear to auscultation and percussion. CARDIAC: S1 is normal. S2 is normal. Regular rate and rhythm. No heaves or thrills noted. ABDOMEN: Soft and obese. Positive bowel sounds. EXTREMITIES: There is no edema. NEUROLOGICAL: He is awake and responsive. LABORATORY AND DIAGNOSTIC DATA: White blood cells 6.4 with hemoglobin 10.7 and platelet count of 273,000. It should be noted in June when he was last admitted here, he had hemoglobin up to 17. Blood gases, pH of 7.44, pCO2 40, pO2 of 84, and a bicarbonate of 27. His sodium is 143, potassium 3.3, chloride 105, bicarb 29, BUN of 30, creatinine 1.9, and glucose of 85. Two sets of cardiac enzymes are so far negative. His proBNP was only 1690. Lipase of 432. His total protein was 9. His INR 1 and PTT of 21. Urinalysis is fairly unremarkable. His chest x-ray was performed yesterday showing no acute processes and was again repeated today showing again the ICD, otherwise unremarkable. His EKG is basically showing sinus rhythm. There is some biphasic T-waves and ST-segment depression in I and aVL that have been present on the EKG dating back to 2012 and therefore are unchanged. Nigel Rubio M.D. DR: MARCK JOB#: [id number] CC:
[2019-06-30 20:00] VITALS: BP 152/80
--- NOTE | 2019-06-30 20:56 | NUR ---
NURSE NOTES: Patient complained of headache located anterior, nonradiating, with a pain scale of 8/10. No signs of distress noted. Patient is requesting for tylenol as pain medication. Informed Dr. Pedro that his Tylenol 650mg PRN is for fever and asked if it could be given as for pain as well. Dr Pedro replied, "Yes, to give Tylenol for fever and mild pain". Noted and carried out.
[2019-07-01] VITALS: BP 134/76
--- NOTE | 2019-07-01 02:16 | NUR ---
NURSE NOTES: Resting throughout the night. No significant change of condition noted. Will continue to monitor.
--- NOTE | 2019-07-01 03:00 | Consultation ---
DATE OF CONSULTATION: 06/30/2019 Addendum ASSESSMENT AND PLAN: 1. Atypical chest pain. 2. History of cardiomyopathy. 3. Congestive heart failure history. 4. Intracardiac defibrillator implantation. 5. Renal insufficiency. 6. Anemia status post blood transfusion. This patient was seen in cardiac consultation. The patient's pain is somewhat atypical. He has had this pain for a while and he is followed by [facility]. His troponins were all negative. His proBNP is not significantly elevated as I would have expected. He has had this pain for a long time. His EKG seem unchanged dating back to [address]-segment changes in I and aVL were found at that time as well. The pain does not appear to be exertional. Echocardiogram was done, I will try to review and I think since his EKG is not changed and his cardiac enzymes are negative and no exertion symptoms associated with this pain, I think he may be better off having further evaluation at [facility] where he is chronically monitored and they have had all this testing previously performed and not necessarily need to be redone. Nigel Rubio M.D. DR: Jonah JOB#: [id number] CC:
[2019-07-01 04:00] VITALS: BP 150/81
--- NOTE | 2019-07-01 04:08 | NUR ---
NURSE NOTES: 0000 Patient complained of bleeding in his gums. Bleeding noted at the lower gums, right. Bright red in color, amounting to 5ml. No cuts nor wounds noted inside the mouth. Denies any dizziness nor light headedness. No distress noted. Vital signs are stable. Offered iced chips and applied pressure on affected area. Comfort care provided. 0030 Patient stated that "bleeding has subsided." Advised to continue apply pressure on affected area. Will continue to monitor. 0330 Patient complained again of bleeding in his gums. Bleeding noted with blood clots at the same area, amounting to 15ml. Patient felt dizziness. Vital signs are T=97.7, CA=60, RR=18, TN=669/97. Same intervention done. Patient stated that "Probably it's because of the xarelto". Called Dr. Pedro for further orders. Awaiting for callback. 0400 Rechecked BP which revealed 150/81. Patient stated that "Bleeding and dizziness has subsided." Charge nurse made aware. Comfort care provided. Will continue to monitor.
[2019-07-01] MEDS: HydrALAZINE 10mg Tab ORAL SCH ×2 (05:44→14:00)
[2019-07-01] MEDS: Amiodarone 200mg tab ORAL SCH ×2 (05:44→14:00)
--- NOTE | 2019-07-01 07:00 | NUR ---
NURSE NOTES: Per Dr. Pedro, replied "Ok." No new orders at this time.
[2019-07-01 07:07] LABS: BASOPHILS % (AUTO) 1.3 % (0.0-2.0); EOSINOPHILS % (AUTO) 3.5 % (0.0-3.0); HEMATOCRIT 37.3 % (42.0-52.0); HEMOGLOBIN 11.2 G/DL (14.2-18.0); LYMPHOCYTES % (AUTO) 22.5 % (20.0-45.0); MEAN CORPUSCULAR VOLUME 72 FL (80-99); MONOCYTES % (AUTO) 8.2 % (1.0-10.0); NEUTROPHILS % (AUTO) 64.5 % (45.0-75.0); PLATELET COUNT 260 K/UL (150-450); RED BLOOD COUNT 5.18 M/UL (4.70-6.10); RED CELL DISTRIBUTION WIDTH 26.3 % (11.6-14.8); WHITE BLOOD COUNT 5.9 K/UL (4.8-10.8)
--- NOTE | 2019-07-01 07:15 | NUR ---
HAND-OFF: Report given to HARRIETT Quezada. Patient still has bleeding at gum area. Advised to continue to apply pressure to affected area. No distress noted. Plan of care endorsed.
[2019-07-01 07:21] LABS: ANION GAP 9 mmol/L (5-15); BLOOD UREA NITROGEN 28 mg/dL (7-18); CALCIUM 9.1 MG/DL (8.5-10.1); CARBON DIOXIDE 29 MMOL/L (21-32); CHLORIDE 103 MMOL/L (98-107); CREATININE 1.7 MG/DL (0.55-1.30); POTASSIUM 3.5 MMOL/L (3.5-5.1); SODIUM 141 MMOL/L (136-145)
--- NOTE | 2019-07-01 07:25 | NUR ---
NURSE NOTES: Received report from Maia/HARRIETT. Patient is awake, A/O x4. Primarily Yi speaking. Able to make needs known. Denies pain at this time. No signs of acute distress/SOB noted. Checked IV site and flushed. No erythema, bleeding or infiltration noted. Patient complains of bleeding on gum, will continue to monitor. Bed at lowest position, brakes on, side-rails x2. Call light within reach. Will continue plan of care.
[2019-07-01 08:00] VITALS: BP 144/75
[2019-07-01] MEDS: Aspirin EC 81mg tab ORAL SCH (09:17)
[2019-07-01] MEDS: Allopurinol 100mg Tab ORAL SCH (09:17)
[2019-07-01] MEDS: Ascorbic Acid 500mg tab ORAL SCH (09:17)
[2019-07-01] MEDS: Losartan 50mg tab ORAL SCH (09:19)
[2019-07-01 12:00] VITALS: BP 155/90
--- NOTE | 2019-07-01 13:45 | NUR ---
NURSE NOTES: Discharge instruction given, Patient verbalized understanding. Medication and belonging given to patient. cardiac monitor and IV removed, no acute distress or bleeding noted. Used concierge phone to explain side effects and dosage, patient verbalized understanding. Paper work signed by Patient. Son called [employer], escorted downstairs and Patient left with [employer].
--- NOTE | 2019-07-01 13:49 | NUR ---
*-* INSURANCE *-* ALL CLINICALS AND REVIEWS HAVE BEEN FAXED TO: Button no tracking# or CM assigned yet but requesting clinicals #[phone] fax#[phone] Addendum: 07/03/19 at 1550 by MELINA DAVENPORT CM hoda# [id number] joanne:sagar
[2019-07-01 14:00] VITALS: BP 155/90
--- NOTE | 2019-07-02 10:33 | Discharge Summary ---
Discharge Summary Discharge Summary _ DATE OF ADMISSION: 06/29/2019 DATE OF DISCHARGE: 07/01/2019 DISCHARGED BY: Dr. Pedro REASON FOR ADMISSION: 69 years old male with past medical history of hypertension, pacemaker, CHF, CVA / 2012, pacemaker ( since 2014), atrial fibrillation , presented with pressure-like intermittent substernal chest pain for one day with associated shortness of breath. Vital signs revealed elevated blood pressure 195/91 , pulse oximetry was stable on room air. Laboratory work-up revealed no leukocytosis , hemoglobin 11.9, hematocrit 40.7. Stable electrolytes. BUN 35, creatinine 2.2. Glucose 105. Stable LFT. Lipase slightly elevated 432. Troponin negative. CK 101. Pro BNP 1690. Chest x-ray revealed no acute cardiopulmonary pathology. In emergency department patient received aspirin , Lasix, handheld nebulizing treatment with albuterol and admitted for further management. CONSULTANTS: card player Dr. Rubio hospitalist Dr. Denton [facility] COURSE: Patient admitted to telemetry floor. Serial troponin were negative. EKG unchanged since 2012. Echocardiogram demonstrated technically difficult study due to poor acoustical windows and valvular definition. No evidence of pericardial effusion. Mild left ventricular hypertrophy. Wall motion was difficult to see , but appeared to be grossly normal. Left ventricular ejection fraction cannot be adequately estimated due to poor visualization of endocardium. Right ventricular systolic pressure of 27. Per card player chest pain did not seem to be exertional. EKG unchanged since 2012. Patient was prior evaluated at [facility]. Violin Mechanic recommended if chest pain returns, continue with [facility] for further evaluation in future. Chest pain appeared to be atypical. Antiplatelet therapy with aspirin continued. Venous duplex bilateral lower extremity revealed no evidence of acute DVT. Blood pressure was managed with angiotensin receptor mike and hydralazine. Blood pressure stabilized. Patient was continued on diuretic with close monitoring of volumes and cardiorenal parameters. Supplemental oxygen titrated to keep pulse oximetry above 92%. Bronchodilator treatment provided as needed. ProBNP from 1690 down to 594. Pulse oximetry stable on room air prior to discharge Xarelto and amiodarone continued. Telemetry showed sinus rhythm with bundle branch block and occasionally 1 st degree AV block. Hemoglobin and hematocrit remained stable, at baseline. Renal parameters and electrolytes were closely monitored. Electrolytes corrected as needed, and nephrotoxins were avoided. Creatinine from 2.2 down to 1.7. Allopurinol continued. Supportive care provided. Bowel regimen instituted. Patient clinically stabilized and was ready for discharge. FINAL DIAGNOSES: Atypical chest pain GERD Acute on chronic CHF Hypertension uncontrolled with initial hypertensive urgency Atrial fibrillation AICD Gout Renal insufficiency DISCHARGE MEDICATIONS: See Medication Reconciliation list. DISCHARGE INSTRUCTIONS: Patient was discharged home . Follow up with primary care provider in one week. I have been assigned to dictate discharge summary for this account. I was not involved in the patient's management. Melita Reyes NP Jul 02, 2019 10:33
--- NOTE | 2019-07-02 12:59 | Diagnostic Imaging Report ---
APPROVED REPORT CPT Code: 73565 Present Symptoms Comments: BILATERAL LEGS PAIN. BILATERAL: Imaging reveals a patent deep venous system bilaterally. There is no evidence of thrombus within the femoral, popliteal or tibial segments. The greater saphenous veins are also within normal limits. Doppler indicates normal spontaneous flow within these segments.
--- NOTE | 2019-07-03 15:04 | Cardiology Report ---
APPROVED REPORT EKG Measurement Heart [id number] AK [id number] Sinus rhythm with 1st degree AV block Left axis deviation Left ventricular hypertrophy with QRS widening and repolarization abnormality Abnormal ECG
--- NOTE | 2019-07-09 21:40 | Coder Physician Query ---
Clarification is required for compliance, coding accuracy, and to reflect severity of illness for this patient Dear Dr. RIVAS Date: 07/09/19 Erp Analyst/CDS' Name: EDWIGE, FELIPE Serial troponin were negative. EKG unchanged since 2012. Echocardiogram demonstrated technically difficult study due to poor acoustical windows and valvular definition. No evidence of pericardial effusion. Mild left ventricular hypertrophy. Wall motion was difficult to see , but appeared to be grossly normal. Left ventricular ejection fraction cannot be adequately estimated due to poor visualization of endocardium. Right ventricular systolic pressure of 27. Per parcel post officer chest pain did not seem to be exertional. FINAL DIAGNOSES: Atypical chest pain GERD Acute on chronic CHF Hypertension uncontrolled with initial hypertensive urgency Atrial fibrillation Please document the suspected etiology of Chest Pain: [] Aortic dissection [] Acute myocardial infarction [X] Acute Coronary Syndrome [] Pericarditis [] Anxiety [] Cancer [] Pneumonia [] Costochondritis [] Pneumothorax [] GERD/Esophagitis [] Pulmonary embolism [] Other: [] Unable to determine KYLE RIVAS M.D. Date Please also document in your Progress Notes and/or Discharge Summary and indicate if the condition was present on admission. KISHA
== END 2019-07-01 13:59 | disposition home or self-care (01) | DRG 198 ==
LOC: EMR 14:34 → 2E 15:05 → EDBEDREQ 16:54
DX: I24.9 Acute ischemic heart disease, unspecified (principal); I11.0 Hypertensive heart disease with heart failure; I50.9 Heart failure, unspecified; I16.0 Hypertensive urgency; Z79.01 Long term (current) use of anticoagulants; I48.91 Unspecified atrial fibrillation; M10.9 Gout, unspecified; E78.00 Pure hypercholesterolemia, unspecified; K21.9 Gastro-esophageal reflux disease without esophagitis; Z86.73 Personal history of transient ischemic attack (TIA), and cerebral infarction without residual deficits; Z95.810 Presence of automatic (implantable) cardiac defibrillator; N19 Unspecified kidney failure; I45.4 Nonspecific intraventricular block; I44.0 Atrioventricular block, first degree
CPT/HCPCS: 36415; 36600; 71045; 80048; 80053; 80069; 80162; 82550; 82553; 82803; 83690; 83880; 84484; 85025; 85610; 85730; 93005; 93306; 93970; 94664; 96374; 99285; J8499

== ENCOUNTER 2019-09-23 09:12 | Emergency (ER) | payer MEDICAID ==
[~2019-09-23] VITALS: Ht 170.2 cm; Wt 102.1 kg
[~2019-09-23 09:12] MED LIST changes: +ALLOPURINOL100 M1 ORAL; +AMIODARONE HCL100 MG ORAL; +DOCUSATE SODIU100 M2 ORAL; +FERROUS SULFAT325 M2 ORAL; +HYDRALAZINE HCL10 MG ORAL; +METOPROLOL SUC100 MG ORAL; +PROTONIX20 MG ORAL; +XARELTO20 MG ORAL
[2019-09-23 09:40] VITALS: BP 130/88
--- NOTE | 2019-09-23 09:42 | NUR ---
ED Nurse Note: pt walked in to ER from home with newphew due to Lt knee gout flare up. swelling and warm to touch noted on Lt knee. pt aao x4 and assisted by WC due to severe pain. calm but gramicing for pain. denied trauma. ERMD at bedside.
[2019-09-23] MEDS ORDERED: Tylenol #3 tab (300mg/30mg) ORAL ONE (09:45)
[2019-09-23] MEDS ORDERED: PREDNISONE20 MG ORAL (09:48)
[2019-09-23] MEDS ORDERED: ACETAMINOPHEN-1 EAC1 ORAL (09:48)
[2019-09-23 09:55] VITALS: BP 125/79
--- NOTE | 2019-09-23 09:55 | NUR ---
ED Nurse Note: Pt cleared by health care Provider for discharge. DC instructions/prescription was given and explained to pt and newphew and verbalized understanding of teachings. All medical deviecs such as ID band removed. Pt is AAO x4, ambulatory but impaired at this moment due to severe pain on Lt knee and left with all personal belongings. pt was assisted to vehicle by WC.
--- NOTE | 2019-09-23 11:36 | Emergency Room Report ---
History of Present Illness General Chief Complaint: Pain Source: Patient, Family Member, Medical Record Present Illness HPI 69-year-old male presents ED for evaluation. Brought in by nephew for left knee swelling and pain. Started 2 days ago. Denies any fall or injury. Pain is throbbing, 10 out of 10, nonradiating. States he is able to bear weight. Notes history of gout. Notes gout to that same left knee and previous times. States he is currently compliant with his allopurinol. Denies fevers or chills. No other aggravating relieving factors. Denies any other associated symptoms Allergies: Coded Allergies: No Known Allergies (Verified , 03/15/10) Patient History Past Medical History: HTN, CVA/TIA, other - gout Past Surgical History: pacemaker Pertinent Family History: none Social History: Denies: smoking, alcohol use, drug use Immunizations: UTD Reviewed Nursing Documentation: PMH: Agreed; PSxH: Agreed Nursing Documentation-PMH Hx Cardiac Problems: Yes - CHF, Gout Hx Hypertension: Yes Hx Pacemaker: Yes - since 2014 Hx Diabetes: No Hx Cancer: No Hx Gastrointestinal Problems: No Hx Dialysis: No Hx Neurological Problems: Yes Hx Cerebrovascular Accident: Yes - 2011 Hx Seizures: No Review of Systems All Other Systems: negative except mentioned in HPI Physical Exam Vital Signs Date Time Temp Pulse Resp B/P (MAP) Pulse Ox O2 Delivery O2 Flow Rate FiO2 09/23/19 09:23 98.2 86 18 130/88 (102) 96 Room Air Sp02 EP Interpretation: reviewed, normal General Appearance: no apparent distress, alert, GCS 15, non-toxic Head: normocephalic Eyes: bilateral eye normal inspection, bilateral eye PERRL ENT: normal ENT inspection Neck: normal inspection Respiratory: normal inspection Cardiovascular #1: normal inspection Gastrointestinal: normal inspection Rectal: deferred Genitourinary: no CVA tenderness Musculoskeletal: swelling - L knee Neurologic: alert, motor strength/tone normal, oriented x3, sensory intact, responsive, speech normal Psychiatric: normal inspection Skin: no rash Lymphatic: normal inspection Medical Decision Making Diagnostic Impression: Primary Impression: Gout Qualified Codes: M10.9 - Gout, unspecified ER Course Hospital Course 69-year-old M presents ED with left knee pain and swelling. History of gout Differential diagnoses include: Fracture, dislocation, sprain, contusion, bursitis, septic joint Clinical course Patient placed on stretcher. After initial history, physical exam reveals an elderly male in no acute distress. There is swelling and erythema to the left toe. No fluctuance. Patient appears well and nontoxic. Given history of gout my suspicion for septic arthritis is low. I discussed findings with patient and family. Continue allopurinol as indicated. We will add prednisone and breakthrough pain medications. Ice, elevation. Modified activity. Given Tylenol 3 in the ED. Safe for discharge for close outpatient follow-up. I will provide Ortho referrals Diagnosis - gout Stable and discharged to home with prescription for tylenol #3, prednisone. Followup with PMD/ortho. Return to ED if symptoms recur or worsen Last Vital Signs Date Time Temp Pulse Resp B/P (MAP) Pulse Ox O2 Delivery O2 Flow Rate FiO2 09/23/19 09:55 98.1 75 18 125/79 98 Room Air Status: unchanged Disposition: HOME, SELF-CARE Condition: Stable Scripts Prednisone* (PREDNISONE*) 20 Mg Tablet 40 MG ORAL DAILY, #10 TAB Prov: Nehemias Zeng MD 09/23/19 Acetaminophen With Codeine (T#3) (TYLENOL #3 TAB*) Y Tab 1 TAB ORAL Q8H PRN for For Pain for 3 Days, #12 TAB Prov: Nehemias Zeng MD 09/23/19 Referrals: [facility] Open 24 hour /7 days a week by Appointment Only [address] [facility] [address] [facility] [address] Patient Instructions: Gout, [id number] Nehemias Zeng MD Sep 23, 2019 11:36
== END 2019-09-23 09:55 | disposition home or self-care (01) ==
LOC: EMR 09:44
DX: M10.9 Gout, unspecified (principal); I10 Essential (primary) hypertension; Z95.0 Presence of cardiac pacemaker; I11.0 Hypertensive heart disease with heart failure; I50.9 Heart failure, unspecified; Z86.73 Personal history of transient ischemic attack (TIA), and cerebral infarction without residual deficits
CPT/HCPCS: 99282

== ENCOUNTER 2020-12-15 10:46 | Inpatient (IN) | payer MEDICAID ==
[~2020-12-15] VITALS: Ht 177.8 cm; Wt 112.0 kg
[~2020-12-15 10:46] MED LIST changes: +ACETAMINOPHEN-1 EAC1 ORAL; +PREDNISONE20 MG ORAL
--- NOTE | 2020-12-15 11:01 | NUR ---
pt arrives to ER with complaints of SOB, non productive cough x 2 weeks. pt states symptoms began after receiving Covid vacine on 11/28. pt states testing for COVID with negative results on 12/05. PT was hosptialized at this time for SOB. PT denies previous history of copd or asthma but states CHF along with htn and pacemaker. pt is mild distress with RA 92%.
[2020-12-15] MEDS ORDERED: Nitroglycerin Subl 0.4mg tab SL PRN (11:30)
[2020-12-15 11:37] LABS: EOSINOPHILS % (AUTO) 0.1 % (0.0-3.0); HEMOGLOBIN 14.3 G/DL (14.2-18.0); LYMPHOCYTES % (AUTO) 8.8 % (20.0-45.0); MEAN CORPUSCULAR VOLUME 94 FL (80-99); MONOCYTES % (AUTO) 8.4 % (1.0-10.0); NEUTROPHILS % (AUTO) 81.7 % (45.0-75.0); PLATELET COUNT 293 K/UL (150-450); RED BLOOD COUNT 4.88 M/UL (4.70-6.10); RED CELL DISTRIBUTION WIDTH 13.7 % (11.6-14.8); WHITE BLOOD COUNT 10.7 K/UL (4.8-10.8)
[2020-12-15 12:18] LABS: INR 1.1 (0.9-1.1)
[2020-12-15 12:27] LABS: ANION GAP 10 mmol/L (5-15); BLOOD UREA NITROGEN 19 mg/dL (7-18); CALCIUM 7.6 MG/DL (8.5-10.1); CARBON DIOXIDE 25 MMOL/L (21-32); CHLORIDE 113 MMOL/L (98-107); CREATININE 1.1 MG/DL (0.55-1.30); POTASSIUM 3.5 MMOL/L (3.5-5.1); SODIUM 148 MMOL/L (136-145)
[2020-12-15 12:38] LABS: ALANINE AMINOTRANSFERASE 33 U/L (12-78); ALBUMIN 2.8 G/DL (3.4-5.0); ALBUMIN/GLOBULIN RATIO 0.9 (1.0-2.7); ALKALINE PHOSPHATASE 107 U/L (46-116); ASPARTATE AMINO TRANSFERASE 12 U/L (15-37); BILIRUBIN,TOTAL 0.8 MG/DL (0.2-1.0)
--- NOTE | 2020-12-15 12:56 | NUR ---
attempted to call son with updated plan of care no answer
--- NOTE | 2020-12-15 13:24 | NUR ---
Called to give report for patient transfer tp Room 211-2. Nurse will call back for report.
--- NOTE | 2020-12-15 14:16 | NUR ---
RADIOLOGY DEPT., CHEST X-RAY PERFORMED ON ADMIT.LALY
--- NOTE | 2020-12-15 14:25 | History & Physical ---
History and Physical History & Physicial Abdiaziz Pedro MD Dec 15, 2020 14:25
[2020-12-15 14:40] VITALS: BP 141/103
--- NOTE | 2020-12-15 14:46 | Consultation ---
Consult Note Consult Note Asked to evaluate the patient at the request of Dr. Pedro for Renal failure and fluid and electrolyte management HISTORY OF PRESENT ILLNESS: This is a 70-year-old gentleman with past medical history significant for sick sinus syndrome, status post pacemaker at [facility] in 2014, history of cardiomyopathy, hypertension, atrial fibrillation, who presented to the emergency department complaining about shortness of breath and cough over the past two weeks, progressive worsening over the past several days. The patient has recently received COVID vaccination on November 28, 2020 and was tested for COVID was negative on December 05, 2020. The patient was complaining about shortness of breath, progressive worsening since the vaccination and ecchymosis on the right upper extremity at the site of the vaccination. The patient denies any chest pain, nausea, vomiting, diarrhea, hemoptysis, hematochezia, bright red blood per rectum. Shortly after initial evaluation in the emergency department, the patient was admitted to the hospital with acute on chronic congestive heart failure. PAST MEDICAL HISTORY/PAST SURGICAL HISTORY: As above, history of hypertension, congestive heart failure, chronic atrial fibrillation, status post pacemaker, back surgery. PHYSICAL EXAMINATION: VITAL SIGNS: Show blood pressure of 141/103, pulse is 106, respirations 20, temperature 98. HEAD AND NECK: Show positive JVD. LUNGS: Decreased breath sounds with basilar rales. CARDIOVASCULAR: Shows irregularly irregular S1 and S2. No gallop or murmur. ABDOMEN: Soft. EXTREMITIES: 1+ pitting edema. Defibrillator in left subclavian. LABORATORY AND DIAGNOSTIC DATA: His labs show white count of 10.7, hemoglobin of 14, hematocrit of 46, and platelet count of 293. Sodium is 140, potassium 3.5, BUN of 19, creatinine 1.1, glucose of 100. BNP is 5183. His digoxin level is not obtained. . Assessment/Plan CHF,History of cardiomyopathy At [facility] HTN, uncontrolled at times History of gout Has defibrillator History of renal insufficiency History of anemia and previous transfusion GERD High cholesterol Plan: Adjust cardiac medication. Adjust blood pressure medication. Monitor renal parameters and electrolytes. Attempt to diurese. 2D echocardiogram. Per orders. Abdirahman Kerr MD Dec 15, 2020 14:46
--- NOTE | 2020-12-15 15:00 | NUR ---
Received pt from ER from HARRIETT Ornelas. Pt admitted for shortness of breath after receiving COVID vaccine. Pt currently on 2L NC and endorses SOB. Pt placed on tele box. Dr. Pedro came to bedside and admission orders received. Pt able to ambulate with steady gait. Pt endorses pain to R arm where vaccine was administered. Bruising noted to site but skin otherwise intact. Pt currently in afib with controlled heart rate. Bed in lowest position. Side rail x3. Call bragg within reach. TV remote given to pt. Will continue to monitor closely.
[2020-12-15] MEDS ORDERED: Tylenol #3 tab (300mg/30mg) ORAL PRN (15:15)
[2020-12-15] MEDS ORDERED: Amiodarone 200mg tab ORAL SCH (15:15)
[2020-12-15 16:00] VITALS: BP 140/95
--- NOTE | 2020-12-15 16:13 | Cardiac Electrophysiology PN ---
Subjective Subjective [id number] Fib BS ICD 2015 CHF EF 25% HTN Objective Last 24 Hour Vital Signs Date Time Temp Pulse Resp B/P (MAP) Pulse Ox O2 Delivery O2 Flow Rate FiO2 12/15/20 14:40 98.1 106 20 141/103 (116) 98 12/15/20 11:27 Room Air 12/15/20 10:55 98.8 109 18 159/111 (127) 92 Room Air Laboratory Tests Test 12/15/20 11:24 12/15/20 12:06 White Blood Count 10.7 K/UL (4.8-10.8) Red Blood Count 4.88 M/UL (4.70-6.10) Hemoglobin 14.3 G/DL (14.2-18.0) Hematocrit 46.0 % (42.0-52.0) Mean Corpuscular Volume 94 FL (80-99) Mean Corpuscular Hemoglobin 29.4 PG (27.0-31.0) Mean Corpuscular Hemoglobin Concent 31.2 G/DL (32.0-36.0) L Red Cell Distribution Width 13.7 % (11.6-14.8) Platelet Count 293 K/UL (150-450) Mean Platelet Volume 8.0 FL (6.5-10.1) Neutrophils (%) (Auto) 81.7 % (45.0-75.0) H Lymphocytes (%) (Auto) 8.8 % (20.0-45.0) L Monocytes (%) (Auto) 8.4 % (1.0-10.0) Eosinophils (%) (Auto) 0.1 % (0.0-3.0) Basophils (%) (Auto) 1.0 % (0.0-2.0) Troponin I 0.000 ng/mL (0.000-0.056) Prothrombin Time 12.5 SEC (9.30-11.50) H Prothromb Time International Ratio 1.1 (0.9-1.1) Activated Partial Thromboplast Time 29 SEC (23-33) D-Dimer 0.41 mg/L FEU (0.00-0.49) Sodium Level 148 MMOL/L (136-145) H Potassium Level 3.5 MMOL/L (3.5-5.1) Chloride Level 113 MMOL/L (98-107) H Carbon Dioxide Level 25 MMOL/L (21-32) Anion Gap 10 mmol/L (5-15) Blood Urea Nitrogen 19 mg/dL (7-18) H Creatinine 1.1 MG/DL (0.55-1.30) Estimat Glomerular Filtration Rate > 60 mL/min (>60) Glucose Level 100 MG/DL (74-106) Calcium Level 7.6 MG/DL (8.5-10.1) L Total Bilirubin 0.8 MG/DL (0.2-1.0) Aspartate Amino Transf (AST/SGOT) 12 U/L (15-37) L Alanine Aminotransferase (ALT/SGPT) 33 U/L (12-78) Alkaline Phosphatase 107 U/L (46-116) Pro-B-Type Natriuretic Peptide 5183 pg/mL (0-125) H Total Protein 6.0 G/DL (6.4-8.2) L Albumin 2.8 G/DL (3.4-5.0) L Globulin 3.2 g/dL Albumin/Globulin Ratio 0.9 (1.0-2.7) L Prostate Specific Antigen 0.81 ng/mL (0.13-4.0) Microbiology Date/Time Source Procedure Growth Status 12/15/20 11:24 Nasopharynx SARS-CoV-2 RdRp Gene Assay - Final Complete Chong Yanez MD Dec 15, 2020 16:13
--- NOTE | 2020-12-15 17:29 | Consultation ---
DATE OF CONSULTATION: 12/15/2020 CARDIOLOGY CONSULTATION CONSULTING PHYSICIAN: Chong Yanez MD REFERRING PHYSICIAN: Abdiaziz Pedro MD REASON FOR CONSULTATION: Management of hypertension, atrial fibrillation, congestive heart failure as well as evaluation of patient's defibrillator. HISTORY OF PRESENT ILLNESS: Patient is a 70-year-old gentleman with history of [employer] defibrillator implantation at [facility] in 2015 as well as severe cardiomyopathy, hypertension, atrial fibrillation. Patient presented to the emergency room with increasing shortness of breath and cough for 2 weeks that has gotten worse after receiving COVID vaccine on 11/28/2020. Patient was tested for COVID, which was negative on 12/05/2020. Patient denies any prior COPD or asthma. REVIEW OF SYSTEMS: Negative other than what was mentioned in history of present illness. PAST MEDICAL HISTORY: As mentioned above. FAMILY HISTORY: Noncontributory. SOCIAL HISTORY: He does not smoke or drink alcohol. PHYSICAL EXAMINATION: VITAL SIGNS: Show blood pressure of 141/103, pulse is 106, respirations 20, temperature 98. HEAD AND NECK: Show positive JVD. LUNGS: Decreased breath sounds with basilar rales. CARDIOVASCULAR: Shows irregularly irregular S1 and S2. No gallop or murmur. ABDOMEN: Soft. EXTREMITIES: 1+ pitting edema. Defibrillator in left subclavian. LABORATORY AND DIAGNOSTIC DATA: His labs show white count of 10.7, hemoglobin of 14, hematocrit of 46, and platelet count of 293. Sodium is 140, potassium 3.5, BUN of 19, creatinine 1.1, glucose of 100. BNP is 5183. His digoxin level is not obtained. ASSESSMENT AND PLAN: 1. Exacerbation of congestive heart failure. Resume patient's heart failure medication and start Lasix 40 mg IV b.i.d. Patient is already on Toprol-XL 200 mg daily as well as benazepril 40 mg daily. 2. Atrial fibrillation. Rate is controlled on Toprol 200 mg daily. Patient is on Xarelto 20 mg daily for anticoagulation as well. 3. Accelerated hypertension, on Toprol 200, benazepril 40 mg daily, and amlodipine 10 mg daily. Patient is also on p.r.n. hydralazine as well as Lasix that was switched to IV. We will decrease his amiodarone to 200 mg daily. His echocardiogram will be repeated as well. The previous echo in June 2019 showed grossly normal ejection fraction and could not be visualized well. Previous echo in June 2018 was also difficult to assess. In 2014, it was only 25%. Thank you very much, Dr. Pedro, for allowing me to participate in the care of this patient. Please do not hesitate to contact me if you have any questions regarding my evaluation. Chong Yanez M.D. DR: LOREN JOB#: [id number] CC:
[2020-12-15] MEDS ORDERED: Docusate 100mg cap ORAL SCH (18:00)
[2020-12-15] MEDS ORDERED: Furosemide 40mg tab ORAL SCH (18:00)
--- NOTE | 2020-12-15 18:02 | Diagnostic Imaging Report ---
Indication: Shortness of breath Technique: One view of the chest Comparison: 06/30/2019 Findings: Heart is enlarged. There is mild bilateral pulmonary venous congestion, not evident previously. There is left chest pacemaker again demonstrated. Impression: Cardiomegaly with mild pulmonary venous congestion
[2020-12-15] MEDS: Docusate 100mg cap ORAL SCH (18:15)
--- NOTE | 2020-12-15 19:41 | NUR ---
Report given to HARRIETT Ríos. Pt in NAD. All questions answered. Care continues.
--- NOTE | 2020-12-15 19:43 | NUR ---
NURSE NOTES: Received pt and report from HARRIETT Monreal. Observed pt resting in bed with both eyes closed; arousable to voice. Pt is A/Ox4. 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 Fib, controlled; (98 bpm). IV site intact, asymptomatic, and patent. Pt is on O2 2L via NC; sating at 97%. No respiratory distress noted. Bed is in the lowest position and locked. Call light and bedside table is within reach. No signs/symptoms of acute distress noted. Will continue plan of care.
[2020-12-15 20:00] VITALS: BP 126/81
[2020-12-15] MEDS: Atorvastatin 20mg tab ORAL SCH (20:51)
[2020-12-15] MEDS ORDERED: Atorvastatin 20mg tab ORAL SCH (21:00)
[2020-12-15 21:18] LABS: APPEARANCE,URINE CLEAR; BILIRUBIN, URINE NEGATIVE (NEGATIVE); COLOR,URINE PALE YELLOW; GLUCOSE, URINE (UA) NEGATIVE (NEGATIVE); KETONES,URINE NEGATIVE (NEGATIVE); LEUKOCYTE ESTERASE ,URINE NEGATIVE (NEGATIVE); NITRITE,URINE NEGATIVE (NEGATIVE); PH,URINE 6 (4.5-8.0); PROTEIN,URINE 3+ (NEGATIVE); UROBILINOGEN,URINE 1 MG/DL (0.0-1.0)
[2020-12-15] MEDS ORDERED: HydrALAZINE 10mg Tab ORAL SCH (22:00)
[2020-12-16] VITALS: BP 116/84
[2020-12-16 04:00] VITALS: BP 128/86
--- NOTE | 2020-12-16 06:25 | NUR ---
NURSE NOTES: Notified Dr. Ynaez that pt's HR increases to 130-140s bpm while standing up to use the urinal and occasionally while pt is moving around in bed. Pt is asymptomatic. Dr. Yanez was also made aware that pt is in A. Fib/A. flutter w/BBB, PVCs, and occasionally V-pacing. Pt's current HR is 118 bpm. Awaiting call back.
--- NOTE | 2020-12-16 07:23 | NUR ---
NURSE HAND-OFF REPORT: Important Events on Shift: Started pt on Lasix IVP. Notified Dr. Yanez of increased HR while standing and with activity. Pt is asymptomatic. Awaiting call back. Endorsed to dayshift nurse as well. Pt continues to be on 2L O2 via NC; sating at 97%. Pt currently in bed eating breakfast. Patient Status: Stable Diet: Cardiac Pending Orders: 2D echo Pending Results/Labs: AM Labs Pending MD notification: N Latest Vital Signs: Temperature 98.4 , Pulse 105 , B/P 128 /86 , Respiratory Rate 24 , O2 SAT 98 , Room Air, O2 Flow Rate 2.0 . EKG Rhythm: A. Fib, V-pacing Rhythm change?: Y Notified?: Y -Dr. Renata WOODALL Response: Awaiting call back Latest Cummings Fall Score: 45 Fall Risk: High Risk Safety Measures: Call light Within Reach, Bed Alarm Zone 1, Side Rails Side Rails x2, Bed position Low and Locked. Fall Precautions: Yellow Socks Patient Fall Education Report given to HARRIETT Monreal.
[2020-12-16 08:00] VITALS: BP 134/92
--- NOTE | 2020-12-16 08:29 | History and Physical Report ---
DATE OF ADMISSION: 12/15/2020 CHIEF COMPLAINT: Shortness of breath. HISTORY OF PRESENT ILLNESS: This is a 70-year-old gentleman with past medical history significant for sick sinus syndrome, status post pacemaker at [facility] in 2014, history of cardiomyopathy, hypertension, atrial fibrillation, who presented to the emergency department complaining about shortness of breath and cough over the past two weeks, progressive worsening over the past several days. The patient has recently received COVID vaccination on November 28, 2020 and was tested for COVID was negative on December 05, 2020. The patient was complaining about shortness of breath, progressive worsening since the vaccination and ecchymosis on the right upper extremity at the site of the vaccination. The patient denies any chest pain, nausea, vomiting, diarrhea, hemoptysis, hematochezia, bright red blood per rectum. Shortly after initial evaluation in the emergency department, the patient was admitted to the hospital with acute on chronic congestive heart failure. PAST MEDICAL HISTORY/PAST SURGICAL HISTORY: As above, history of hypertension, congestive heart failure, chronic atrial fibrillation, status post pacemaker, back surgery. MEDICATIONS AT HOME: Please refer to medication reconciliation. ALLERGIES: No known drug allergies. SOCIAL HISTORY: Denies any smoking, alcohol, or drugs. FAMILY HISTORY: Significant for heart disease. REVIEW OF SYSTEMS: Complaining about the leg edema and shortness of breath. Denies any chest pain. Denies any hemoptysis or hematochezia. Denies any bright red blood per rectum. Denies any loss of consciousness. Denies any fall or head trauma. PHYSICAL EXAMINATION: VITAL SIGNS: On admission is significant for temperature 98.8, pulse of 109, respirations 18, and blood pressure 159/111, repeat blood pressure is 141/ 103. GENERAL: The patient awake, responsive, no acute distress. HEAD AND NECK: Pupils are equal and reactive to light. Extraocular muscles intact. NECK: Supple. Positive JVD. LUNGS: Good air entry with no wheezing or rhonchi. Decreased air in bases. HEART: S1, S2. Irregular. No murmur or gallops. The patient has a pacemaker in left-sided chest wall was noted. ABDOMEN: Soft, nondistended, nontender. No rebound tenderness. Morbidly obese. EXTREMITIES: No cyanosis, clubbing. +2 edema bilateral lower extremities. NEUROLOGIC: Cranial nerves II through XII are grossly normal. Motor is 5/5 in all extremities. Gait was not assessed due to the patient's status. RECTAL: Refused and deferred. GENITOURINARY: Refused and deferred. PSYCHIATRIC: Mood and affect is intact. LABORATORY AND DIAGNOSTIC DATA: On admission, WBC of 10.7, hemoglobin of 14, hematocrit 46, platelet is 293. Sodium 148, potassium 3.5, chloride 113, bicarb 25, BUN 19, creatinine 1.1, GFR is greater than 60. Calcium is 7.6, total bilirubin of 0.6. AST of 12, ALT of 33. ProBNP of 5183. Total protein is 6.0, albumin is 3.8, and PSA is 0.81. Urinalysis, total urine protein is +3, leukocytes negative, rbc's 0.2. PT of , INR 1.1, PTT of 29. D-dimer is 0.41. Chest x-ray, cardiomegaly with mild pulmonary vascular congestion. ASSESSMENT: 1. Acute on chronic congestive heart failure. 2. Atrial fibrillation, rate control. 3. Accelerated hypertension. 4. Morbid obesity. 5. Sick sinus syndrome, status post pacemaker. PLAN: Admit the patient to monitored unit. We will follow up with Dr. Yanez, consultation from Cardiology and Dr. Abdirahman Kerr from Nephrology. We will start the patient on Lasix IV. Code status is full. DVT prophylaxis. Heparin subcutaneous. Follow up with 2D echo. Monitor laboratory. Abdiaziz Pedro M.D. DR: OCTAVIO/NEIL JOB#: [id number] CC:
[2020-12-16] MEDS ORDERED: Aspirin Baby 81mg ORAL SCH (09:00)
[2020-12-16] MEDS ORDERED: Allopurinol 100mg Tab ORAL SCH ×2 (09:00)
[2020-12-16] MEDS ORDERED: Xarelto 10mg tab ORAL SCH (09:00)
[2020-12-16] MEDS: Aspirin EC 81mg tab ORAL SCH (09:09)
[2020-12-16] MEDS: Xarelto 10mg tab ORAL SCH (09:09)
[2020-12-16] MEDS: Amiodarone 200mg tab ORAL SCH (09:10)
[2020-12-16] MEDS: Docusate 100mg cap ORAL SCH ×3 (09:10→17:48)
[2020-12-16] MEDS: Ascorbic Acid 500mg tab ORAL SCH (09:10)
[2020-12-16] MEDS: Metoprolol Succinate XL 100mg tab ORAL SCH (09:11)
[2020-12-16 09:56] LABS: BASOPHILS % (AUTO) 0.4 % (0.0-2.0); EOSINOPHILS % (AUTO) 0.5 % (0.0-3.0); HEMATOCRIT 43.2 % (42.0-52.0); HEMOGLOBIN 13.6 G/DL (14.2-18.0); LYMPHOCYTES % (AUTO) 9.1 % (20.0-45.0); MEAN CORPUSCULAR VOLUME 95 FL (80-99); MONOCYTES % (AUTO) 7.8 % (1.0-10.0); NEUTROPHILS % (AUTO) 82.3 % (45.0-75.0); PLATELET COUNT 265 K/UL (150-450); RED BLOOD COUNT 4.53 M/UL (4.70-6.10); RED CELL DISTRIBUTION WIDTH 13.6 % (11.6-14.8); WHITE BLOOD COUNT 8.2 K/UL (4.8-10.8)
[2020-12-16 10:02] LABS: ALANINE AMINOTRANSFERASE 32 U/L (12-78); ALBUMIN 3.1 G/DL (3.4-5.0); ALBUMIN/GLOBULIN RATIO 0.8 (1.0-2.7); ALKALINE PHOSPHATASE 111 U/L (46-116); ANION GAP 6 mmol/L (5-15); ASPARTATE AMINO TRANSFERASE 13 U/L (15-37); BLOOD UREA NITROGEN 24 mg/dL (7-18); CARBON DIOXIDE 32 MMOL/L (21-32); CHLORIDE 107 MMOL/L (98-107); CHOLESTEROL 109 MG/DL (< 200); CREATININE 1.5 MG/DL (0.55-1.30); GAMMA GLUTAMYL TRANSPEPTIDASE 54 U/L (5-85); HDL CHOLESTEROL 60 MG/DL (40-60); PHOSPHORUS 3.2 MG/DL (2.5-4.9); SODIUM 145 MMOL/L (136-145); TRIGLYCERIDES 61 MG/DL (30-150)
--- NOTE | 2020-12-16 11:55 | Consultation ---
History of Present Illness General Date patient seen: Dec 16, 2020 Reason for Hospitalization: Dyspnea/Respdistress Present Illness HPI 70-year-old male multimedical comorbidities history of cardiac issues presented with shortness of breath difficulty breathing identified abdominal distention on examination surgical devices with care patient seen, patient by, chart reviewed. Currently no nausea vomiting fever chills. States has been constipated. Passing flatus. Is not very hungry. Labs noted no imaging at this time examination performed recommendations inputted last bowel movement 2 days ago Allergies: Coded Allergies: No Known Allergies (Verified , 03/15/10) COVID-19 Screening Contact w/high risk pt: No Experienced COVID-19 symptoms?: No Coronavirus symptoms experienc: Shortness of Breath, Cough Medication History Scheduled Allopurinol* (Allopurinol*), 100 MG ORAL DAILY, (Reported) Amiodarone Hcl (Amiodarone Hcl), 200 MG ORAL EVERY 8 HOURS, (Reported) Amlodipine Besylate* (Amlodipine Besylate*), 10 MG ORAL DAILY, (Reported) Ascorbic Acid* (Vitamin C*), 500 MG ORAL DAILY Aspirin* (Aspir-Low*), 81 MG PO DAILY, (Reported) Atorvastatin Calcium* (Atorvastatin Calcium*), 10 MG ORAL BEDTIME, (Reported) Docusate Sodium (Docusate Sodium), 100 MG ORAL BID, (Reported) Ferrous Sulfate (Ferrous Sulfate), 325 MG ORAL BID, (Reported) Furosemide* (Lasix*), 40 MG PO DAILY, (Reported) Hydralazine Hcl* (Hydralazine Hcl*), 10 MG ORAL EVERY 8 HOURS, (Reported) Losartan Potassium* (Losartan Potassium*), 100 MG ORAL DAILY, (Reported) Metoprolol Succinate* (Metoprolol Succinate*), 2 TAB ORAL EVERY MORNING, (Reported) Omeprazole (Omeprazole), 20 MG ORAL DAILY, (Reported) Pantoprazole Sodium (Protonix), 40 MG ORAL DAILY, (Reported) Prednisone* (Prednisone*), 40 MG ORAL DAILY Rivaroxaban (Xarelto*), 20 MG ORAL DAILY, (Reported) Scheduled PRN Acetaminophen With Codeine (T#3) (Tylenol #3 Tab*), 1 TAB ORAL Q8H PRN for For Pain Miscellaneous Medications Benazepril Hcl* (Benazepril Hcl*), 40 MG ORAL, (Reported) Patient History History Provided By: Patient, Medical Record, PMD Healthcare decision maker Resuscitation status Advanced Directive on File Past Medical/Surgical History Past Medical/Surgical History: (1) Chest pain (2) ICD (implantable cardioverter-defibrillator) in place (3) GERD (gastroesophageal reflux disease) (4) Gastrointestinal hemorrhage (5) HTN (hypertension) (6) JEZ (acute kidney injury) (7) Arthritis (8) Gout attack (9) History of pacemaker (10) Atrial fibrillation (11) CHF (congestive heart failure) (12) Gout Review of Systems Review of Symptoms General ROS: no weight loss or fever Psychological ROS: no depression or mood changes, no memory loss Ophthalmic ROS: no visual changes or eye irritation ENT ROS: no nasal congestion, hearing loss, dizziness Allergy and Immunology ROS: no allergic symptoms or urticaria Hematological and Lymphatic ROS: no swollen glands, unusual bleeding or bruising Endocrine ROS: no polyuria, polydipsia, weight changes, temperature intolerance Respiratory ROS: no cough, shortness of breath, or wheezing Cardiovascular ROS: no chest pain or dyspnea on exertion Gastrointestinal ROS: denies abdominal pain, bright red blood in stool. Musculoskeletal ROS: no myalgias or arthralgias Neurological ROS: no TIA or stroke symptoms Dermatological ROS: no new or changing skin lesions, rashes or pruritis Physical Exam Physical Exam General appearance: alert, cooperative, no distress, appears stated age Head: Normocephalic, without obvious abnormality, atraumatic Eyes: conjunctivae/corneas clear. PERRL, EOM's intact. Fundi benign Throat: Lips, mucosa, and tongue normal. Teeth and gums normal Neck: supple, symmetrical, trachea midline, no adenopathy, thyroid: not enlarged, symmetric, no tenderness/mass/nodules, no carotid bruit and no JVD Lungs: clear to auscultation bilaterally Heart: regular rate and rhythm, S1, S2 normal, no murmur, click, rub or gallop Abdomen: soft, non-tender. Bowel sounds normal. No masses, no organomegaly. mild distention, possible baseline. Extremities: extremities normal, atraumatic, no cyanosis or edema Pulses: 2+ and symmetric Skin: Skin color, texture, turgor normal. No rashes or lesions Neurologic: Grossly normal Last 24 Hour Vital Signs Date Time Temp Pulse Resp B/P (MAP) Pulse Ox O2 Delivery O2 Flow Rate FiO2 12/16/20 09:11 103 134/92 12/16/20 09:11 103 134/92 12/16/20 09:08 134/92 12/16/20 08:00 Nasal Cannula 2.0 12/16/20 08:00 108 12/16/20 08:00 98.4 103 22 134/92 (106) 12/16/20 04:00 Nasal Cannula 2.0 12/16/20 04:00 98.4 105 24 128/86 (100) 98 12/16/20 04:00 105 12/16/20 00:00 Nasal Cannula 2.0 12/16/20 00:00 98.0 107 22 116/84 (95) 97 12/16/20 00:00 115 12/15/20 20:00 100 12/15/20 20:00 Nasal Cannula 2.0 12/15/20 20:00 98.3 100 20 126/81 (96) 98 12/15/20 16:00 98.0 100 24 140/95 (110) 95 12/15/20 16:00 Nasal Cannula 2.0 12/15/20 16:00 101 12/15/20 15:00 Nasal Cannula 2.0 12/15/20 14:40 98.1 106 20 141/103 (116) 98 12/15/20 14:30 101 Intake and Output 12/15/20 12/16/20 19:00 07:00 Intake Total 160 ml Balance 160 ml Intake Oral 160 ml # Voids 4 Laboratory Tests Test 12/15/20 12:06 12/15/20 21:00 12/16/20 09:10 12/16/20 09:16 Prothrombin Time 12.5 SEC (9.30-11.50) H Prothromb Time International Ratio 1.1 (0.9-1.1) Activated Partial Thromboplast Time 29 SEC (23-33) D-Dimer 0.41 mg/L FEU (0.00-0.49) Sodium Level 148 MMOL/L (136-145) H 145 MMOL/L (136-145) Potassium Level 3.5 MMOL/L (3.5-5.1) 4.0 MMOL/L (3.5-5.1) Chloride Level 113 MMOL/L (98-107) H 107 MMOL/L (98-107) Carbon Dioxide Level 25 MMOL/L (21-32) 32 MMOL/L (21-32) Anion Gap 10 mmol/L (5-15) 6 mmol/L (5-15) Blood Urea Nitrogen 19 mg/dL (7-18) H 24 mg/dL (7-18) H Creatinine 1.1 MG/DL (0.55-1.30) 1.5 MG/DL (0.55-1.30) H Estimat Glomerular Filtration Rate > 60 mL/min (>60) 46.5 mL/min (>60) Glucose Level 100 MG/DL (74-106) 122 MG/DL (74-106) H Calcium Level 7.6 MG/DL (8.5-10.1) L 9.0 MG/DL (8.5-10.1) Total Bilirubin 0.8 MG/DL (0.2-1.0) 1.0 MG/DL (0.2-1.0) Aspartate Amino Transf (AST/SGOT) 12 U/L (15-37) L 13 U/L (15-37) L Alanine Aminotransferase (ALT/SGPT) 33 U/L (12-78) 32 U/L (12-78) Alkaline Phosphatase 107 U/L (46-116) 111 U/L (46-116) Pro-B-Type Natriuretic Peptide 5183 pg/mL (0-125) H 6100 pg/mL (0-125) H Total Protein 6.0 G/DL (6.4-8.2) L 7.1 G/DL (6.4-8.2) Albumin 2.8 G/DL (3.4-5.0) L 3.1 G/DL (3.4-5.0) L Globulin 3.2 g/dL 4.0 g/dL Albumin/Globulin Ratio 0.9 (1.0-2.7) L 0.8 (1.0-2.7) L Prostate Specific Antigen 0.81 ng/mL (0.13-4.0) Urine Color Pale yellow Urine Appearance Clear Urine pH 6 (4.5-8.0) Urine Specific [place] 1.010 (1.005-1.035) Urine Protein 3+ (NEGATIVE) H Urine Glucose (UA) Negative (NEGATIVE) Urine Ketones Negative (NEGATIVE) Urine Blood Negative (NEGATIVE) Urine Nitrite Negative (NEGATIVE) Urine Bilirubin Negative (NEGATIVE) Urine Urobilinogen 1 MG/DL (0.0-1.0) H Urine Leukocyte Esterase Negative (NEGATIVE) Urine RBC 0-2 /HPF (0 - 0) H Urine WBC 0-2 /HPF (0 - 0) Urine Squamous Epithelial Cells Few /LPF (NONE/OCC) Urine Bacteria Occasional /HPF (NONE) Hemoglobin A1c 6.5 % (4.3-6.0) H Uric Acid 6.3 MG/DL (2.6-7.2) Phosphorus Level 3.2 MG/DL (2.5-4.9) Magnesium Level 2.0 MG/DL (1.8-2.4) Gamma Glutamyl Transpeptidase 54 U/L (5-85) Troponin I 0.003 ng/mL (0.000-0.056) C-Reactive Protein, Quantitative 16.7 mg/dL (0.00-0.90) H Triglycerides Level 61 MG/DL (30-150) Cholesterol Level 109 MG/DL (< 200) LDL Cholesterol 49 mg/dL (<100) HDL Cholesterol 60 MG/DL (40-60) Cholesterol/HDL Ratio 1.8 (3.3-4.4) L Vitamin B12 Level 769 PG/ML (193-986) Folate 13.9 NG/ML (8.6-58.9) Thyroid Stimulating Hormone (TSH) 2.537 uiU/mL (0.358-3.740) White Blood Count 8.2 K/UL (4.8-10.8) Red Blood Count 4.53 M/UL (4.70-6.10) L Hemoglobin 13.6 G/DL (14.2-18.0) L Hematocrit 43.2 % (42.0-52.0) Mean Corpuscular Volume 95 FL (80-99) Mean Corpuscular Hemoglobin 29.9 PG (27.0-31.0) Mean Corpuscular Hemoglobin Concent 31.4 G/DL (32.0-36.0) L Red Cell Distribution Width 13.6 % (11.6-14.8) Platelet Count 265 K/UL (150-450) Mean Platelet Volume 8.1 FL (6.5-10.1) Neutrophils (%) (Auto) 82.3 % (45.0-75.0) H Lymphocytes (%) (Auto) 9.1 % (20.0-45.0) L Monocytes (%) (Auto) 7.8 % (1.0-10.0) Eosinophils (%) (Auto) 0.5 % (0.0-3.0) Basophils (%) (Auto) 0.4 % (0.0-2.0) Vitamin D 25-Hydroxy Pending 25-Hydroxy Vitamin D2 Pending 25-Hydroxy Vitamin D3 Pending Height (Feet): 5 Height (Inches): 7.00 Weight (Pounds): 247 Medications Current Medications Medications (Trade) Dose Ordered Sig/Ronnie Route PRN Reason Start Time Stop Time Status Last Admin Dose Admin Acetaminophen (Tylenol) 650 mg Q4H PRN ORAL Mild Pain (Pain Scale 1-3) 12/15/20 15:15 01/14/21 15:14 Acetaminophen/ Codeine Phosphate (Tylenol #3) 1 tab Q8H PRN ORAL Pain Scale (6-10) 12/15/20 15:15 12/22/20 15:14 Allopurinol (Zyloprim) 100 mg DAILY ORAL 12/16/20 09:00 01/15/21 08:59 12/16/20 09:10 Amiodarone HCl (Cordarone) 200 mg DAILY ORAL 12/16/20 09:00 03/15/21 15:14 12/16/20 09:10 Amlodipine Besylate (Norvasc) 10 mg DAILY ORAL 12/16/20 09:00 01/15/21 08:59 12/16/20 09:11 Ascorbic Acid (Vitamin C) 500 mg DAILY ORAL 12/16/20 09:00 01/15/21 08:59 12/16/20 09:10 Aspirin (Ecotrin) 81 mg DAILY ORAL 12/16/20 09:00 01/30/21 08:59 12/16/20 09:09 Atorvastatin Calcium (Lipitor) 10 mg BEDTIME ORAL 12/15/20 21:00 03/15/21 20:59 12/15/20 20:51 Benazepril HCl (Lotensin) 40 mg DAILY ORAL 12/16/20 09:00 01/15/21 08:59 12/16/20 09:08 Docusate Sodium (Colace) 100 mg EVERY 12 HOURS ORAL 12/16/20 21:00 01/14/21 17:59 Ferrous Sulfate (Feosol) 325 mg EVERY 12 HOURS ORAL 12/16/20 21:00 03/15/21 17:59 Furosemide (Lasix) 40 mg EVERY 12 HOURS IV 12/15/20 21:00 01/14/21 20:59 12/16/20 09:11 Metoprolol Succinate (Toprol XL) 200 mg DAILY ORAL 12/16/20 09:00 03/16/21 08:59 12/16/20 09:11 Nitroglycerin (Ntg) 0.4 mg Q5M PRN SL Prn Chest Pain 12/15/20 11:30 01/14/21 11:29 Ondansetron HCl (Zofran) 4 mg Q6H PRN IVP Nausea & Vomiting 12/15/20 15:15 01/14/21 15:14 Pantoprazole (Protonix) 40 mg DAILY ORAL 12/16/20 09:00 01/15/21 08:59 12/16/20 09:09 Rivaroxaban (Xarelto) 20 mg DAILY ORAL 12/16/20 09:00 03/16/21 08:59 12/16/20 09:09 Assessment/Plan Problem List: (1) Abdominal distension Assessment & Plan: Abdominal distention shortness of breath likely unrelated. Labs noted renal insufficiency dehydrated. Constipated. Bowel regimen initiated KUB ordered. No acute surgical intervention planned. Okay for diet. Will follow with recommendations as imaging available. Thank you for letting participate in patient's care. Cardiology input appreciated nephrology input appreciated ICD Codes: R14.0 - Abdominal distension (gaseous) SNOMED: 15247220 (2) GERD (gastroesophageal reflux disease) ICD Codes: K21.9 - Gastro-esophageal reflux disease without esophagitis SNOMED: 971320892 (3) Chest pain ICD Codes: R07.9 - Chest pain, unspecified SNOMED: 70927515 (4) ICD (implantable cardioverter-defibrillator) in place ICD Codes: Z95.810 - Presence of automatic (implantable) cardiac defibrillator SNOMED: 548202031 (5) Gastrointestinal hemorrhage ICD Codes: K92.2 - Gastrointestinal hemorrhage, unspecified SNOMED: 27777473 (6) HTN (hypertension) ICD Codes: I10 - HTN (hypertension) SNOMED: 17970648 (7) JEZ (acute kidney injury) ICD Codes: N17.9 - JEZ (acute kidney injury) SNOMED: 38061894 (8) Arthritis ICD Codes: M19.90 - Unspecified osteoarthritis, unspecified site SNOMED: 5776252 (9) Gout attack ICD Codes: M10.9 - Gout, unspecified SNOMED: 67068349 (10) History of pacemaker ICD Codes: Z86.79 - History of pacemaker SNOMED: 598213758 (11) Atrial fibrillation ICD Codes: I48.91 - Unspecified atrial fibrillation SNOMED: 27844226 (12) CHF (congestive heart failure) ICD Codes: I50.9 - Heart failure, unspecified SNOMED: 06081120 (13) Gout ICD Codes: M10.9 - Gout, unspecified SNOMED: 72438767 Bobby Mccray Dec 16, 2020 11:55
[2020-12-16 12:00] VITALS: BP 132/94
--- NOTE | 2020-12-16 12:34 | Nephrology Progress Note ---
Assessment/Plan Problem List: (1) JEZ (acute kidney injury) (2) HTN (hypertension) (3) ICD (implantable cardioverter-defibrillator) in place (4) CHF (congestive heart failure) (5) Atrial fibrillation (6) Gout Assessment CHF,History of cardiomyopathy At Fib HTN, uncontrolled at times History of gout Has defibrillator History of renal insufficiency History of anemia and previous transfusion GERD High cholesterol Plan December 16: Optimize cardiac status. Keep the blood pressure in check. Monitor renal parameters. Avoid nephrotoxic's. Per orders. Per consultants. Subjective ROS Limited/Unobtainable: No Constitutional: Reports: malaise Objective Objective Last 24 Hour Vital Signs Date Time Temp Pulse Resp B/P (MAP) Pulse Ox O2 Delivery O2 Flow Rate FiO2 12/16/20 09:11 103 134/92 12/16/20 09:11 103 134/92 12/16/20 09:08 134/92 12/16/20 08:00 Nasal Cannula 2.0 12/16/20 08:00 108 12/16/20 08:00 98.4 103 22 134/92 (106) 12/16/20 04:00 Nasal Cannula 2.0 12/16/20 04:00 98.4 105 24 128/86 (100) 98 12/16/20 04:00 105 12/16/20 00:00 Nasal Cannula 2.0 12/16/20 00:00 98.0 107 22 116/84 (95) 97 12/16/20 00:00 115 12/15/20 20:00 100 12/15/20 20:00 Nasal Cannula 2.0 12/15/20 20:00 98.3 100 20 126/81 (96) 98 12/15/20 16:00 98.0 100 24 140/95 (110) 95 12/15/20 16:00 Nasal Cannula 2.0 12/15/20 16:00 101 12/15/20 15:00 Nasal Cannula 2.0 12/15/20 14:40 98.1 106 20 141/103 (116) 98 12/15/20 14:30 101 Intake and Output 12/15/20 12/16/20 19:00 07:00 Intake Total 160 ml Balance 160 ml Intake Oral 160 ml # Voids 4 Current Medications Medications (Trade) Dose Ordered Sig/Ronnie Route PRN Reason Start Time Stop Time Status Last Admin Dose Admin Acetaminophen (Tylenol) 650 mg Q4H PRN ORAL Mild Pain (Pain Scale 1-3) 12/15/20 15:15 01/14/21 15:14 Acetaminophen/ Codeine Phosphate (Tylenol #3) 1 tab Q8H PRN ORAL Pain Scale (6-10) 12/15/20 15:15 12/22/20 15:14 Allopurinol (Zyloprim) 100 mg DAILY ORAL 12/16/20 09:00 01/15/21 08:59 12/16/20 09:10 Amiodarone HCl (Cordarone) 200 mg DAILY ORAL 12/16/20 09:00 03/15/21 15:14 12/16/20 09:10 Amlodipine Besylate (Norvasc) 10 mg DAILY ORAL 12/16/20 09:00 01/15/21 08:59 12/16/20 09:11 Ascorbic Acid (Vitamin C) 500 mg DAILY ORAL 12/16/20 09:00 01/15/21 08:59 12/16/20 09:10 Aspirin (Ecotrin) 81 mg DAILY ORAL 12/16/20 09:00 01/30/21 08:59 12/16/20 09:09 Atorvastatin Calcium (Lipitor) 10 mg BEDTIME ORAL 12/15/20 21:00 03/15/21 20:59 12/15/20 20:51 Benazepril HCl (Lotensin) 40 mg DAILY ORAL 12/16/20 09:00 01/15/21 08:59 12/16/20 09:08 Docusate Sodium (Colace) 100 mg EVERY 12 HOURS ORAL 12/16/20 21:00 01/14/21 17:59 Ferrous Sulfate (Feosol) 325 mg EVERY 12 HOURS ORAL 12/16/20 21:00 03/15/21 17:59 Furosemide (Lasix) 40 mg EVERY 12 HOURS IV 12/15/20 21:00 01/14/21 20:59 12/16/20 09:11 Metoprolol Succinate (Toprol XL) 200 mg DAILY ORAL 12/16/20 09:00 03/16/21 08:59 12/16/20 09:11 Nitroglycerin (Ntg) 0.4 mg Q5M PRN SL Prn Chest Pain 12/15/20 11:30 01/14/21 11:29 Ondansetron HCl (Zofran) 4 mg Q6H PRN IVP Nausea & Vomiting 12/15/20 15:15 01/14/21 15:14 Pantoprazole (Protonix) 40 mg DAILY ORAL 12/16/20 09:00 01/15/21 08:59 12/16/20 09:09 Rivaroxaban (Xarelto) 20 mg DAILY ORAL 12/16/20 09:00 03/16/21 08:59 12/16/20 09:09 Current Medications Medications (Trade) Dose Ordered Sig/Ronnie Route PRN Reason Start Time Stop Time Status Last Admin Dose Admin Acetaminophen (Tylenol) 650 mg Q4H PRN ORAL Mild Pain (Pain Scale 1-3) 12/15/20 15:15 01/14/21 15:14 Acetaminophen/ Codeine Phosphate (Tylenol #3) 1 tab Q8H PRN ORAL Pain Scale (6-10) 12/15/20 15:15 12/22/20 15:14 Allopurinol (Zyloprim) 100 mg DAILY ORAL 12/16/20 09:00 01/15/21 08:59 12/16/20 09:10 Amiodarone HCl (Cordarone) 200 mg DAILY ORAL 12/16/20 09:00 03/15/21 15:14 12/16/20 09:10 Amlodipine Besylate (Norvasc) 10 mg DAILY ORAL 12/16/20 09:00 01/15/21 08:59 12/16/20 09:11 Ascorbic Acid (Vitamin C) 500 mg DAILY ORAL 12/16/20 09:00 01/15/21 08:59 12/16/20 09:10 Aspirin (Ecotrin) 81 mg DAILY ORAL 12/16/20 09:00 01/30/21 08:59 12/16/20 09:09 Atorvastatin Calcium (Lipitor) 10 mg BEDTIME ORAL 12/15/20 21:00 03/15/21 20:59 12/15/20 20:51 Benazepril HCl (Lotensin) 40 mg DAILY ORAL 12/16/20 09:00 01/15/21 08:59 12/16/20 09:08 Docusate Sodium (Colace) 100 mg EVERY 12 HOURS ORAL 12/16/20 21:00 01/14/21 17:59 Ferrous Sulfate (Feosol) 325 mg EVERY 12 HOURS ORAL 12/16/20 21:00 03/15/21 17:59 Furosemide (Lasix) 40 mg EVERY 12 HOURS IV 12/15/20 21:00 01/14/21 20:59 12/16/20 09:11 Metoprolol Succinate (Toprol XL) 200 mg DAILY ORAL 12/16/20 09:00 03/16/21 08:59 12/16/20 09:11 Nitroglycerin (Ntg) 0.4 mg Q5M PRN SL Prn Chest Pain 12/15/20 11:30 01/14/21 11:29 Ondansetron HCl (Zofran) 4 mg Q6H PRN IVP Nausea & Vomiting 12/15/20 15:15 01/14/21 15:14 Pantoprazole (Protonix) 40 mg DAILY ORAL 12/16/20 09:00 01/15/21 08:59 12/16/20 09:09 Rivaroxaban (Xarelto) 20 mg DAILY ORAL 12/16/20 09:00 03/16/21 08:59 12/16/20 09:09 Laboratory Tests 12/15/20 21:00: Urine Color Pale yellow, Urine Appearance Clear, Urine pH 6, Urine Specific [place] 1.010, Urine Protein 3+H, Urine Glucose (UA) Negative, Urine Ketones Negative, Urine Blood Negative, Urine Nitrite Negative, Urine Bilirubin Neg ative, Urine Urobilinogen 1H, Urine Leukocyte Esterase Negative, Urine RBC 0-2H, Urine WBC 0-2, Urine Squamous Epithelial Cells Few, Urine Bacteria Occasional 12/16/20 09:10: Sodium Level 145, Potassium Level 4.0, Chloride Level 107, Carbon Dioxide Level 32, Anion Gap 6, Blood Urea Nitrogen 24H, Creatinine 1.5H, Estimat Glomerular Filtration Rate 46.5, Glucose Level 122H, Hemoglobin A1c 6.5H, Uric Acid 6.3, Calcium Level 9.0, Phosphorus Level 3.2, Magnesium Level 2.0, Total Bilirubin 1.0, Gamma Glutamyl Transpeptidase 54, Aspartate Amino Transf (AST/SGOT) 13L, Alanine Aminotransferase (ALT/SGPT) 32, Alkaline Phosphatase 111, Troponin I 0.003, C-Reactive Protein, Quantitative 16.7H, Pro-B-Type Natriuretic Peptide 6100H, Total Protein 7.1, Albumin 3.1L, Globulin 4.0, Albumin/Globulin Ratio 0.8L, Triglycerides Level 61, Cholesterol Level 109, LDL Cholesterol 49, HDL Cholesterol 60, Cholesterol/HDL Ratio 1.8L, Vitamin B12 Level 769, Folate 13.9, Thyroid Stimulating Hormone (TSH) 2.537 12/16/20 09:16: White Blood Count 8.2, Red Blood Count 4.53L, Hemoglobin 13.6L, Hematocrit 43.2, Mean Corpuscular Volume 95, Mean Corpuscular Hemoglobin 29.9, Mean Corpuscular Hemoglobin Concent 31.4L, Red Cell Distribution Width 13.6, Platelet Count 265, Mean Platelet Volume 8.1, Neutrophils (%) (Auto) 82.3H, Lymphocytes (%) (Auto) 9.1L, Monocytes (%) (Auto) 7.8, Eosinophils (%) (Auto) 0.5, Basophils (%) (Auto) 0.4, Vitamin D 25-Hydroxy [Pending], 25-Hydroxy Vitamin D2 [Pending], 25-Hydroxy Vitamin D3 [Pending] Height (Feet): 5 Height (Inches): 7.00 Weight (Pounds): 247 Cardiovascular: tachycardia Respiratory/Chest: decreased breath sounds Abdomen: distended Abdirahman Kerr MD Dec 16, 2020 12:34
--- NOTE | 2020-12-16 14:15 | Internal Med Progress Note ---
Subjective Physician Name Abdiaziz Pedro Attending Physician Abdiaziz Pedro MD Current Medications Medications (Trade) Dose Ordered Sig/Ronnie Route PRN Reason Start Time Stop Time Status Last Admin Dose Admin Acetaminophen (Tylenol) 650 mg Q4H PRN ORAL Mild Pain (Pain Scale 1-3) 12/15/20 15:15 01/14/21 15:14 Acetaminophen/ Codeine Phosphate (Tylenol #3) 1 tab Q8H PRN ORAL Pain Scale (6-10) 12/15/20 15:15 12/22/20 15:14 Allopurinol (Zyloprim) 200 mg DAILY ORAL 12/17/20 09:00 01/15/21 08:59 Amiodarone HCl (Cordarone) 200 mg DAILY ORAL 12/16/20 09:00 03/15/21 15:14 12/16/20 09:10 Amlodipine Besylate (Norvasc) 10 mg DAILY ORAL 12/16/20 09:00 01/15/21 08:59 12/16/20 09:11 Ascorbic Acid (Vitamin C) 500 mg DAILY ORAL 12/16/20 09:00 01/15/21 08:59 12/16/20 09:10 Aspirin (Ecotrin) 81 mg DAILY ORAL 12/16/20 09:00 01/30/21 08:59 12/16/20 09:09 Atorvastatin Calcium (Lipitor) 10 mg BEDTIME ORAL 12/15/20 21:00 03/15/21 20:59 12/15/20 20:51 Benazepril HCl (Lotensin) 40 mg DAILY ORAL 12/16/20 09:00 01/15/21 08:59 12/16/20 09:08 Docusate Sodium (Colace) 100 mg TID ORAL 12/16/20 13:00 01/14/21 17:59 Furosemide (Lasix) 40 mg EVERY 12 HOURS IV 12/15/20 21:00 01/14/21 20:59 12/16/20 09:11 Metoprolol Succinate (Toprol XL) 200 mg DAILY ORAL 12/16/20 09:00 03/16/21 08:59 12/16/20 09:11 Nitroglycerin (Ntg) 0.4 mg Q5M PRN SL Prn Chest Pain 12/15/20 11:30 01/14/21 11:29 Ondansetron HCl (Zofran) 4 mg Q6H PRN IVP Nausea & Vomiting 12/15/20 15:15 01/14/21 15:14 Pantoprazole (Protonix) 40 mg BID ORAL 12/16/20 18:00 01/15/21 08:59 Rivaroxaban (Xarelto) 20 mg DAILY ORAL 12/16/20 09:00 03/16/21 08:59 12/16/20 09:09 Allergies: Coded Allergies: No Known Allergies (Verified , 03/15/10) Subjective awake, alert, responsive, denies any chest pain, decreased shortness of breath, worsening renal function. Objective Last Vital Signs Date Time Temp Pulse Resp B/P (MAP) Pulse Ox O2 Delivery O2 Flow Rate FiO2 12/16/20 12:00 87 12/16/20 12:00 Nasal Cannula 2.0 12/16/20 12:00 98.6 26 132/94 (107) 95 Laboratory Tests Test 12/15/20 21:00 12/16/20 09:10 12/16/20 09:16 Urine Color Pale yellow Urine Appearance Clear Urine pH 6 (4.5-8.0) Urine Specific [place] 1.010 (1.005-1.035) Urine Protein 3+ (NEGATIVE) H Urine Glucose (UA) Negative (NEGATIVE) Urine Ketones Negative (NEGATIVE) Urine Blood Negative (NEGATIVE) Urine Nitrite Negative (NEGATIVE) Urine Bilirubin Negative (NEGATIVE) Urine Urobilinogen 1 MG/DL (0.0-1.0) H Urine Leukocyte Esterase Negative (NEGATIVE) Urine RBC 0-2 /HPF (0 - 0) H Urine WBC 0-2 /HPF (0 - 0) Urine Squamous Epithelial Cells Few /LPF (NONE/OCC) Urine Bacteria Occasional /HPF (NONE) Sodium Level 145 MMOL/L (136-145) Potassium Level 4.0 MMOL/L (3.5-5.1) Chloride Level 107 MMOL/L (98-107) Carbon Dioxide Level 32 MMOL/L (21-32) Anion Gap 6 mmol/L (5-15) Blood Urea Nitrogen 24 mg/dL (7-18) H Creatinine 1.5 MG/DL (0.55-1.30) H Estimat Glomerular Filtration Rate 46.5 mL/min (>60) Glucose Level 122 MG/DL (74-106) H Hemoglobin A1c 6.5 % (4.3-6.0) H Uric Acid 6.3 MG/DL (2.6-7.2) Calcium Level 9.0 MG/DL (8.5-10.1) Phosphorus Level 3.2 MG/DL (2.5-4.9) Magnesium Level 2.0 MG/DL (1.8-2.4) Total Bilirubin 1.0 MG/DL (0.2-1.0) Gamma Glutamyl Transpeptidase 54 U/L (5-85) Aspartate Amino Transf (AST/SGOT) 13 U/L (15-37) L Alanine Aminotransferase (ALT/SGPT) 32 U/L (12-78) Alkaline Phosphatase 111 U/L (46-116) Troponin I 0.003 ng/mL (0.000-0.056) C-Reactive Protein, Quantitative 16.7 mg/dL (0.00-0.90) H Pro-B-Type Natriuretic Peptide 6100 pg/mL (0-125) H Total Protein 7.1 G/DL (6.4-8.2) Albumin 3.1 G/DL (3.4-5.0) L Globulin 4.0 g/dL Albumin/Globulin Ratio 0.8 (1.0-2.7) L Triglycerides Level 61 MG/DL (30-150) Cholesterol Level 109 MG/DL (< 200) LDL Cholesterol 49 mg/dL (<100) HDL Cholesterol 60 MG/DL (40-60) Cholesterol/HDL Ratio 1.8 (3.3-4.4) L Vitamin B12 Level 769 PG/ML (193-986) Folate 13.9 NG/ML (8.6-58.9) Thyroid Stimulating Hormone (TSH) 2.537 uiU/mL (0.358-3.740) White Blood Count 8.2 K/UL (4.8-10.8) Red Blood Count 4.53 M/UL (4.70-6.10) L Hemoglobin 13.6 G/DL (14.2-18.0) L Hematocrit 43.2 % (42.0-52.0) Mean Corpuscular Volume 95 FL (80-99) Mean Corpuscular Hemoglobin 29.9 PG (27.0-31.0) Mean Corpuscular Hemoglobin Concent 31.4 G/DL (32.0-36.0) L Red Cell Distribution Width 13.6 % (11.6-14.8) Platelet Count 265 K/UL (150-450) Mean Platelet Volume 8.1 FL (6.5-10.1) Neutrophils (%) (Auto) 82.3 % (45.0-75.0) H Lymphocytes (%) (Auto) 9.1 % (20.0-45.0) L Monocytes (%) (Auto) 7.8 % (1.0-10.0) Eosinophils (%) (Auto) 0.5 % (0.0-3.0) Basophils (%) (Auto) 0.4 % (0.0-2.0) Vitamin D 25-Hydroxy Pending 25-Hydroxy Vitamin D2 Pending 25-Hydroxy Vitamin D3 Pending Microbiology Date/Time Source Procedure Growth Status 12/15/20 11:24 Nasopharynx SARS-CoV-2 RdRp Gene Assay - Final Complete Intake and Output 12/15/20 12/16/20 19:00 07:00 Intake Total 160 ml Balance 160 ml Intake Oral 160 ml # Voids 4 Objective GENERAL: The patient awake, responsive, no acute distress. HEAD AND NECK: Pupils are equal and reactive to light. Extraocular muscles intact. NECK: Supple. Positive JVD. LUNGS: Good air entry with no wheezing or rhonchi. Decreased air in bases. HEART: S1, S2. Irregular. No murmur or gallops. ICD in left-sided chest wall was noted. ABDOMEN: Soft, nondistended, nontender. No rebound tenderness. Morbidly obese. EXTREMITIES: No cyanosis, clubbing. +2 edema bilateral lower extremities. NEUROLOGIC: Cranial nerves II through XII are grossly normal. Motor is 5/5 in all extremities. Gait was not assessed due to the patient's status. RECTAL: Refused and deferred. GENITOURINARY: Refused and deferred. PSYCHIATRIC: Mood and affect is intact. Assessment/Plan Assessment/Plan ASSESSMENT: 1. Acute on chronic congestive heart failure. 2. Atrial fibrillation, rate control. 3. Accelerated hypertension. 4. Morbid obesity. 5. S/P ICD. 6. JEZ PLAN: In monitored unit. Dr. Yanez, consultation from Cardiology and Dr. Abdirahman Kerr from Nephrology. On Lasix IV. Code status is full. DVT prophylaxis: Heparin subcutaneous. Follow up with 2D echo. Monitor laboratory. Abdiaziz Pedro MD Dec 16, 2020 14:15
--- NOTE | 2020-12-16 14:21 | Diagnostic Imaging Report ---
Indication: Shortness of breath Technique: One view of the chest Comparison: 12/15/2020 Findings: The heart is enlarged. Bilateral edema versus infiltrates are unchanged, allowing for differences in exposure technique. There is a left chest AICD. There is a small right pleural effusion, not evident previously. 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
[2020-12-16 16:00] VITALS: BP 116/83
--- NOTE | 2020-12-16 16:03 | Emergency Room Report ---
History of Present Illness General Chief Complaint: Dyspnea/Respdistress Source: Patient, Medical Record, PMD Present Illness HPI Patient is a 70-year-old male presents for increased difficulty with breathing. Prior history of congestive heart failure. Had recently had coronavirus vaccine. Reports having an recent leg swelling as well as increased difficulty with lying down. Reports being compliant with his anticoagulation as well as with his antiarrhythmics. Worsening orthopnea. Onset of symptoms over the past 2 days. No prior history of diabetes. Currently on Xarelto. Allergies: Coded Allergies: No Known Allergies (Verified , 03/15/10) COVID-19 Screening Contact w/high risk pt: No Experienced COVID-19 symptoms?: No COVID-19 Testing performed BANQUET PILOT: Yes COVID-19 Screening: Negative COVID-19 COVID-19 Testing Source: [facility] Patient History Past Medical History: see triage record Reviewed Nursing Documentation: PMH: Agreed; PSxH: Agreed Nursing Documentation-PMH Hx Cardiac Problems: Yes Hx Hypertension: Yes Hx Pacemaker: Yes - L ICD Hx Asthma: No Hx COPD: No Hx Diabetes: No Hx Cancer: No Hx Gastrointestinal Problems: No Hx Dialysis: No History Of Psychiatric Problem: No Hx Neurological Problems: Yes Hx Cerebrovascular Accident: No Hx Seizures: No Hx Neurologic Surgery: Yes - pt states he had surgery on his head Review of Systems All Other Systems: negative except mentioned in HPI Physical Exam Vital Signs Date Time Temp Pulse Resp B/P (MAP) Pulse Ox O2 Delivery O2 Flow Rate FiO2 12/15/20 10:55 98.8 109 18 159/111 (127) 92 Room Air 12/15/20 15:00 2.0 Sp02 EP Interpretation: reviewed, normal General Appearance: normal inspection, alert, GCS 15, moderate distress Head: atraumatic ENT: normal ENT inspection, hearing grossly normal, normal voice Neck: normal inspection, full range of motion, supple, no bony tend Respiratory: normal inspection, no retraction, respiratory distress, rales Cardiovascular #1: regular rate, rhythm, no edema, edema - 2+ edema Gastrointestinal: normal inspection, normal bowel sounds, non tender, soft, no guarding, no hernia Genitourinary: no CVA tenderness Musculoskeletal: normal inspection, back normal, normal range of motion Neurologic: alert, motor strength/tone normal, recoverer III-XII nml as tested, responsive, speech normal, normal inspection Psychiatric: normal inspection, judgement/insight normal, mood/affect normal Skin: no rash Medical Decision Making Diagnostic Impression: Primary Impression: Atrial fibrillation Additional Impression: CHF (congestive heart failure) ER Course Patient presents for shortness of breath. Differential diagnosis include was not limited to CHF exacerbation, COPD, pneumonia, pulmonary embolism among others. Because of complexity of imaging studies were ordered.CHF patient with known to have longstandingPatient was given IV Lasix as well as nitrates due to congestive heart failure. He was placed on BiPAP. Coronavirus testing was negative. Laboratory testing showed evidence of elevated proBNP with negative initial troponin. Chest x-ray showed cardiomegaly as well as pacemaker with moderate bilateral vascular congestion.Patient's reassessment showed some continued shortness of breath and patient be hospitalized due to CHF exacerbation. Dr. Abdiaziz Pedro was contacted for inpatient management. Laboratory Tests Test 12/15/20 11:24 12/15/20 12:06 12/15/20 21:00 12/16/20 09:10 White Blood Count 10.7 K/UL (4.8-10.8) Red Blood Count 4.88 M/UL (4.70-6.10) Hemoglobin 14.3 G/DL (14.2-18.0) Hematocrit 46.0 % (42.0-52.0) Mean Corpuscular Volume 94 FL (80-99) Mean Corpuscular Hemoglobin 29.4 PG (27.0-31.0) Mean Corpuscular Hemoglobin Concent 31.2 G/DL (32.0-36.0) L Red Cell Distribution Width 13.7 % (11.6-14.8) Platelet Count 293 K/UL (150-450) Mean Platelet Volume 8.0 FL (6.5-10.1) Neutrophils (%) (Auto) 81.7 % (45.0-75.0) H Lymphocytes (%) (Auto) 8.8 % (20.0-45.0) L Monocytes (%) (Auto) 8.4 % (1.0-10.0) Eosinophils (%) (Auto) 0.1 % (0.0-3.0) Basophils (%) (Auto) 1.0 % (0.0-2.0) Troponin I 0.000 ng/mL (0.000-0.056) Prothrombin Time 12.5 SEC (9.30-11.50) H Prothrombin Time INR 1.1 (0.9-1.1) Activated Partial Thromboplast Time 29 SEC (23-33) D-Dimer 0.41 mg/L FEU (0.00-0.49) Sodium Level 148 MMOL/L (136-145) H Potassium Level 3.5 MMOL/L (3.5-5.1) Chloride Level 113 MMOL/L (98-107) H Carbon Dioxide Level 25 MMOL/L (21-32) Anion Gap 10 mmol/L (5-15) Blood Urea Nitrogen 19 mg/dL (7-18) H Creatinine 1.1 MG/DL (0.55-1.30) Estimated Glomerular Filtration Rate > 60 mL/min (>60) Glucose Level 100 MG/DL (74-106) Calcium Level 7.6 MG/DL (8.5-10.1) L Total Bilirubin 0.8 MG/DL (0.2-1.0) Aspartate Amino Transferase (AST) 12 U/L (15-37) L Alanine Aminotransferase (ALT) 33 U/L (12-78) Alkaline Phosphatase 107 U/L (46-116) Pro-B-Type Natriuretic Peptide 5183 pg/mL (0-125) H Total Protein 6.0 G/DL (6.4-8.2) L Albumin 2.8 G/DL (3.4-5.0) L Globulin 3.2 g/dL Albumin/Globulin Ratio 0.9 (1.0-2.7) L Prostate Specific Antigen 0.81 ng/mL (0.13-4.0) Urine Color Pale yellow Urine Appearance Clear Urine pH 6 (4.5-8.0) Urine Specific [place] 1.010 (1.005-1.035) Urine Protein 3+ (NEGATIVE) H Urine Glucose (UA) Negative (NEGATIVE) Urine Ketones Negative (NEGATIVE) Urine Blood Negative (NEGATIVE) Urine Nitrite Negative (NEGATIVE) Urine Bilirubin Negative (NEGATIVE) Urine Urobilinogen 1 MG/DL (0.0-1.0) H Urine Leukocyte Esterase Negative (NEGATIVE) Urine RBC 0-2 /HPF (0 - 0) H Urine WBC 0-2 /HPF (0 - 0) Urine Squamous Epithelial Cells Few /LPF (NONE/OCC) Urine Bacteria Occasional /HPF (NONE) Microbiology Date/Time Source Procedure Growth Status 12/15/20 11:24 Nasopharynx SARS-CoV-2 RdRp Gene Assay - Final Complete Last Vital Signs Date Time Temp Pulse Resp B/P (MAP) Pulse Ox O2 Delivery O2 Flow Rate FiO2 12/16/20 12:00 87 12/16/20 12:00 Nasal Cannula 2.0 12/16/20 12:00 98.6 26 132/94 (107) 95 Disposition: ADMITTED INPATIENT Condition: Stable Referrals: [facility],REFERRING (PCP) Ernie Mckeon MD Dec 16, 2020 16:03
--- NOTE | 2020-12-16 16:30 | Cardiac Electrophysiology PN ---
Assessment/Plan Assessment/Plan 1. Exacerbation of congestive heart failure with EF 20%, In 2015, it was only 25%. Continue Lasix 40 mg IV bid, Toprol-XL 200 mg daily as well as benazepril 40 mg daily. 2. Atrial fibrillation. Rate is controlled on Amiodarone 200 daily, Toprol 200 mg daily. Patient is on Xarelto 20 mg daily for anticoagulation as well. 3. Accelerated hypertension, on Toprol 200,Lasix, benazepril 40 mg daily, and amlodipine 10 mg daily. Patient is also on p.r.n. hydralazine 4. S/P DDD [place] [employer] ICD, interrogated and showed Nl Fx. Battery 6 years 90% atrial fib DW RN Subjective Subjective In atrial Fib with controlled rate.Was tahy last night BS ICD 2014 CHF EF 25% Objective Last 24 Hour Vital Signs Date Time Temp Pulse Resp B/P (MAP) Pulse Ox O2 Delivery O2 Flow Rate FiO2 12/16/20 16:00 89 12/16/20 16:00 98.2 98 22 116/83 (94) 98 12/16/20 12:00 87 12/16/20 12:00 Nasal Cannula 2.0 12/16/20 12:00 98.6 103 26 132/94 (107) 95 12/16/20 09:11 103 134/92 12/16/20 09:11 103 134/92 12/16/20 09:08 134/92 12/16/20 08:00 Nasal Cannula 2.0 12/16/20 08:00 108 12/16/20 08:00 98.4 103 22 134/92 (106) 96 12/16/20 04:00 Nasal Cannula 2.0 12/16/20 04:00 98.4 105 24 128/86 (100) 98 12/16/20 04:00 105 12/16/20 00:00 Nasal Cannula 2.0 12/16/20 00:00 98.0 107 22 116/84 (95) 97 12/16/20 00:00 115 12/15/20 20:00 100 12/15/20 20:00 Nasal Cannula 2.0 12/15/20 20:00 98.3 100 20 126/81 (96) 98 Intake and Output 12/15/20 12/16/20 19:00 07:00 Intake Total 160 ml Balance 160 ml Intake Oral 160 ml # Voids 4 Laboratory Tests Test 12/15/20 21:00 12/16/20 09:10 12/16/20 09:16 Urine Color Pale yellow Urine Appearance Clear Urine pH 6 (4.5-8.0) Urine Specific [place] 1.010 (1.005-1.035) Urine Protein 3+ (NEGATIVE) H Urine Glucose (UA) Negative (NEGATIVE) Urine Ketones Negative (NEGATIVE) Urine Blood Negative (NEGATIVE) Urine Nitrite Negative (NEGATIVE) Urine Bilirubin Negative (NEGATIVE) Urine Urobilinogen 1 MG/DL (0.0-1.0) H Urine Leukocyte Esterase Negative (NEGATIVE) Urine RBC 0-2 /HPF (0 - 0) H Urine WBC 0-2 /HPF (0 - 0) Urine Squamous Epithelial Cells Few /LPF (NONE/OCC) Urine Bacteria Occasional /HPF (NONE) Sodium Level 145 MMOL/L (136-145) Potassium Level 4.0 MMOL/L (3.5-5.1) Chloride Level 107 MMOL/L (98-107) Carbon Dioxide Level 32 MMOL/L (21-32) Anion Gap 6 mmol/L (5-15) Blood Urea Nitrogen 24 mg/dL (7-18) H Creatinine 1.5 MG/DL (0.55-1.30) H Estimat Glomerular Filtration Rate 46.5 mL/min (>60) Glucose Level 122 MG/DL (74-106) H Hemoglobin A1c 6.5 % (4.3-6.0) H Uric Acid 6.3 MG/DL (2.6-7.2) Calcium Level 9.0 MG/DL (8.5-10.1) Phosphorus Level 3.2 MG/DL (2.5-4.9) Magnesium Level 2.0 MG/DL (1.8-2.4) Total Bilirubin 1.0 MG/DL (0.2-1.0) Gamma Glutamyl Transpeptidase 54 U/L (5-85) Aspartate Amino Transf (AST/SGOT) 13 U/L (15-37) L Alanine Aminotransferase (ALT/SGPT) 32 U/L (12-78) Alkaline Phosphatase 111 U/L (46-116) Troponin I 0.003 ng/mL (0.000-0.056) C-Reactive Protein, Quantitative 16.7 mg/dL (0.00-0.90) H Pro-B-Type Natriuretic Peptide 6100 pg/mL (0-125) H Total Protein 7.1 G/DL (6.4-8.2) Albumin 3.1 G/DL (3.4-5.0) L Globulin 4.0 g/dL Albumin/Globulin Ratio 0.8 (1.0-2.7) L Triglycerides Level 61 MG/DL (30-150) Cholesterol Level 109 MG/DL (< 200) LDL Cholesterol 49 mg/dL (<100) HDL Cholesterol 60 MG/DL (40-60) Cholesterol/HDL Ratio 1.8 (3.3-4.4) L Vitamin B12 Level 769 PG/ML (193-986) Folate 13.9 NG/ML (8.6-58.9) Thyroid Stimulating Hormone (TSH) 2.537 uiU/mL (0.358-3.740) White Blood Count 8.2 K/UL (4.8-10.8) Red Blood Count 4.53 M/UL (4.70-6.10) L Hemoglobin 13.6 G/DL (14.2-18.0) L Hematocrit 43.2 % (42.0-52.0) Mean Corpuscular Volume 95 FL (80-99) Mean Corpuscular Hemoglobin 29.9 PG (27.0-31.0) Mean Corpuscular Hemoglobin Concent 31.4 G/DL (32.0-36.0) L Red Cell Distribution Width 13.6 % (11.6-14.8) Platelet Count 265 K/UL (150-450) Mean Platelet Volume 8.1 FL (6.5-10.1) Neutrophils (%) (Auto) 82.3 % (45.0-75.0) H Lymphocytes (%) (Auto) 9.1 % (20.0-45.0) L Monocytes (%) (Auto) 7.8 % (1.0-10.0) Eosinophils (%) (Auto) 0.5 % (0.0-3.0) Basophils (%) (Auto) 0.4 % (0.0-2.0) Vitamin D 25-Hydroxy Pending 25-Hydroxy Vitamin D2 Pending 25-Hydroxy Vitamin D3 Pending Microbiology Date/Time Source Procedure Growth Status 12/15/20 11:24 Nasopharynx SARS-CoV-2 RdRp Gene Assay - Final Complete Objective HEAD AND NECK: Show positive JVD. LUNGS: Decreased breath sounds with basilar rales. CARDIOVASCULAR: Shows irregularly irregular S1 and S2. No gallop or murmur. ABDOMEN: Soft. EXTREMITIES: 1+ pitting edema. Defibrillator in left subclavian. Chong Yanez MD Dec 16, 2020 16:30
--- NOTE | 2020-12-16 19:30 | NUR ---
1800: Pt had uneventful day. Pt remains on 2L NC. Pt had ECHO done at bedside. Pt consumed all meals. Pt denies pain. Pt took scheduled meds without issue. Bed in lowest position. Side rail x3. Call bragg within reach. 1929: Report given to Karlene. LORENZANA. Pt resting in bed with eyes closed. All questions answered. Care continues.
--- NOTE | 2020-12-16 19:31 | NUR ---
NURSE NOTES: Report received from HARRIETT Monreal. Patient is asleep on bed in stable condition. residential monitor is in place, shows Afib with HR of 80's-90's. On nasal cannula @ 2Lpm saturating 98%. On cardiac diet, instructed and amenable. With IV site on left hand g-20 saline locked that is patent and intact. Patient can walk with assistance of cane per morning RN report. Safety measures are in place, bed in lowest and locked position, side rails up x 2, call light button and bedside table within reach, instructed to call for any assistance needed, will continue plan of care.
[2020-12-16 20:00] VITALS: BP 124/82
[2020-12-16] MEDS: Atorvastatin 20mg tab ORAL SCH (20:24)
[2020-12-16] MEDS ORDERED: Docusate 100mg cap ORAL SCH (21:00)
--- NOTE | 2020-12-16 21:15 | NUR ---
NURSE NOTES: Initial assessment done, noted non-pitting edema on bilateral lower extremities, on oxygen via nasal cannula @ 2lpm saturating 95-98% and denies shortness of breath at this time. Patient is AO X 4, denies pain nor any discomfort. Will continue plan of care.
--- NOTE | 2020-12-16 23:05 | NUR ---
NURSE NOTES: Patient used his urinals at bedside to urinate, no complaints of discomfort in urinating. Noted excellent appetite as well.
[2020-12-17] VITALS: BP 128/74
[2020-12-17 04:00] VITALS: BP 123/71
--- NOTE | 2020-12-17 07:00 | NUR ---
NURSE NOTES: Received report from HARRIETT Momin. Pt in bed awaken and oriented. Lithuanian speaking and able to speak some Slovak. IV site in left hand 20G SL patent asymptomatic. Bed in lowest position and locked. Bed side railsx2 up for safety. Denied SOB or pain in abdomen. Noted painful bruise on right shoulder. Pt stated that he believes he got the bruise after he got the covid vaccination. Will notify MD for Tx or any intervention. Call light within easy reach. Will continue plan of care.
--- NOTE | 2020-12-17 07:07 | NUR ---
NURSE HAND-OFF REPORT: Important Events on Shift: Patient has been resting well the whole shift, no complaints of pain nor any signs of discomfort. Patient Status: Patient is awake on bed, eating his breakfast in stable condition. Plan of care endorsed. Diet: Cardiac diet Pending Orders: Xray of abdomen Pending Results/Labs:AM labs Pending MD notification:none Latest Vital Signs: Temperature 98.3 , Pulse 95 , B/P 123 /71 , Respiratory Rate 25 , O2 SAT 95 , Room Air, O2 Flow Rate 2.0 . Vital Sign Comment: stable EKG Rhythm: Atrial Fibrillation Rhythm change?: N MD Notified?: N -Dr. Renata WOODALL Response: Latest Cummings Fall Score: 45 Fall Risk: High Risk Safety Measures: Call light Within Reach, Bed Alarm Zone 1, Side Rails Side Rails x2, Bed position Low and Locked. Fall Precautions: Yellow Socks Patient Fall Education Report given to HARRIETT Coleman.
[2020-12-17 08:00] VITALS: BP_SYST 139; BP_SYST 148; BP_DIAS 78; BP_DIAS 96
[2020-12-17] MEDS: Ascorbic Acid 500mg tab ORAL SCH (08:51)
[2020-12-17] MEDS: Xarelto 10mg tab ORAL SCH (08:51)
[2020-12-17] MEDS: Aspirin EC 81mg tab ORAL SCH (08:52)
[2020-12-17] MEDS: Docusate 100mg cap ORAL SCH ×3 (08:52→17:59)
[2020-12-17] MEDS: Allopurinol 100mg Tab ORAL SCH (08:52)
[2020-12-17] MEDS: Metoprolol Succinate XL 100mg tab ORAL SCH (08:52)
[2020-12-17] MEDS: Amiodarone 200mg tab ORAL SCH (08:52)
--- NOTE | 2020-12-17 09:14 | NUR ---
NURSE NOTES: Dr. Kerr is at the bedside. ICE pack ordered for right shoulder painful bruise.
--- NOTE | 2020-12-17 09:50 | Nephrology Progress Note ---
Assessment/Plan Problem List: (1) JEZ (acute kidney injury) (2) HTN (hypertension) (3) ICD (implantable cardioverter-defibrillator) in place (4) CHF (congestive heart failure) (5) Atrial fibrillation (6) Gout Assessment CHF,History of cardiomyopathy At Fib HTN, uncontrolled at times History of gout Has defibrillator History of renal insufficiency History of anemia and previous transfusion GERD High cholesterol Plan December 17: Today's labs pending as of now. Medication list reviewed. Patient clinically stable. Continue as is, per consultants. December 16: Optimize cardiac status. Keep the blood pressure in check. Monitor renal parameters. Avoid nephrotoxic's. Per orders. Per consultants. Subjective ROS Limited/Unobtainable: No Constitutional: Reports: malaise, weakness Objective Objective Last 24 Hour Vital Signs Date Time Temp Pulse Resp B/P (MAP) Pulse Ox O2 Delivery O2 Flow Rate FiO2 12/17/20 08:52 110 139/96 12/17/20 08:52 139/96 12/17/20 08:52 110 139/96 12/17/20 08:00 98.8 109 24 139/96 (110) 96 12/17/20 08:00 110 12/17/20 08:00 Nasal Cannula 2.0 12/17/20 04:00 99 12/17/20 04:00 Nasal Cannula 2.0 12/17/20 04:00 98.3 95 25 123/71 (88) 95 12/17/20 00:00 87 12/17/20 00:00 97.4 80 29 128/74 (92) 95 12/17/20 00:00 Nasal Cannula 2.0 12/16/20 20:00 86 12/16/20 20:00 97.9 93 27 124/82 (96) 96 12/16/20 20:00 Nasal Cannula 2.0 12/16/20 16:00 Nasal Cannula 2.0 12/16/20 16:00 89 12/16/20 16:00 98.2 98 22 116/83 (94) 98 12/16/20 12:00 87 12/16/20 12:00 Nasal Cannula 2.0 12/16/20 12:00 98.6 103 26 132/94 (107) 95 Intake and Output 12/16/20 12/17/20 19:00 07:00 Intake Total 730 ml 1000 ml Output Total 700 ml 1600 ml Balance 30 ml -600 ml Intake Oral 730 ml 1000 ml Output Urine Total 700 ml 1600 ml Current Medications Medications (Trade) Dose Ordered Sig/Ronnie Route PRN Reason Start Time Stop Time Status Last Admin Dose Admin Acetaminophen (Tylenol) 650 mg Q4H PRN ORAL Mild Pain (Pain Scale 1-3) 12/15/20 15:15 01/14/21 15:14 Acetaminophen/ Codeine Phosphate (Tylenol #3) 1 tab Q8H PRN ORAL Pain Scale (6-10) 12/15/20 15:15 12/22/20 15:14 Allopurinol (Zyloprim) 200 mg DAILY ORAL 12/17/20 09:00 01/15/21 08:59 12/17/20 08:52 Amiodarone HCl (Cordarone) 200 mg DAILY ORAL 12/16/20 09:00 03/15/21 15:14 12/17/20 08:52 Amlodipine Besylate (Norvasc) 10 mg DAILY ORAL 12/16/20 09:00 01/15/21 08:59 12/17/20 08:52 Ascorbic Acid (Vitamin C) 500 mg DAILY ORAL 12/16/20 09:00 01/15/21 08:59 12/17/20 08:51 Aspirin (Ecotrin) 81 mg DAILY ORAL 12/16/20 09:00 01/30/21 08:59 12/17/20 08:52 Atorvastatin Calcium (Lipitor) 10 mg BEDTIME ORAL 12/15/20 21:00 03/15/21 20:59 12/16/20 20:24 Benazepril HCl (Lotensin) 40 mg DAILY ORAL 12/16/20 09:00 01/15/21 08:59 12/17/20 08:52 Docusate Sodium (Colace) 100 mg TID ORAL 12/16/20 13:00 01/14/21 17:59 12/17/20 08:52 Furosemide (Lasix) 40 mg EVERY 12 HOURS IV 12/15/20 21:00 01/14/21 20:59 12/17/20 08:53 Metoprolol Succinate (Toprol XL) 200 mg DAILY ORAL 12/16/20 09:00 03/16/21 08:59 12/17/20 08:52 Nitroglycerin (Ntg) 0.4 mg Q5M PRN SL Prn Chest Pain 12/15/20 11:30 01/14/21 11:29 Ondansetron HCl (Zofran) 4 mg Q6H PRN IVP Nausea & Vomiting 12/15/20 15:15 01/14/21 15:14 Pantoprazole (Protonix) 40 mg BID ORAL 12/16/20 18:00 01/15/21 08:59 12/17/20 08:52 Rivaroxaban (Xarelto) 20 mg DAILY ORAL 12/16/20 09:00 03/16/21 08:59 12/17/20 08:51 Laboratory Tests 12/17/20 09:15: White Blood Count [Pending], Red Blood Count [Pending], Hemoglobin [Pending], Hematocrit [Pending], Mean Corpuscular Volume [Pending], Mean Corpuscular Hemoglobin [Pending], Mean Corpuscular Hemoglobin Concent [Pending], Red Cell Distribution Width [Pending], Platelet Count [Pending], Mean Platelet Volume [Pending], Neutrophils (%) (Auto) [Pending], Lymphocytes (%) (Auto) [Pending], Monocytes (%) (Auto) [Pending], Eosinophils (%) (Auto) [Pending], Basophils (%) (Auto) [Pending], Erythrocyte Sedimentation Rate [Pending], Prothrombin Time [Pending], Prothromb Time International Ratio [Pending], Activated Partial Thromboplast Time [Pending], Sodium Level [Pending], Potassium Level [Pending], Chloride Level [Pending], Carbon Dioxide Level [Pending], Blood Urea Nitrogen [Pending], Creatinine [Pending], Estimat Glomerular Filtration Rate [Pending], Glucose Level [Pending], Lactic Acid Level [Pending], Uric Acid [Pending], Calcium Level [Pending], Phosphorus Level [Pending], Magnesium Level [Pending], Total Bilirubin [Pending], Aspartate Amino Transf (AST/SGOT) [Pending], Alanine Aminotransferase (ALT/SGPT) [Pending], Alkaline Phosphatase [Pending], C- Reactive Protein, Quantitative [Pending], Total Protein [Pending], Albumin [Pending], Globulin [Pending], Amylase Level [Pending], Lipase [Pending] Height (Feet): 5 Height (Inches): 7.00 Weight (Pounds): 247 General Appearance: no apparent distress Cardiovascular: tachycardia Respiratory/Chest: decreased breath sounds Abdomen: distended Abdirahman Kerr MD Dec 17, 2020 09:50
[2020-12-17 09:52] LABS: BASOPHILS % (AUTO) 0.6 % (0.0-2.0); EOSINOPHILS % (AUTO) 1.4 % (0.0-3.0); HEMATOCRIT 42.9 % (42.0-52.0); HEMOGLOBIN 13.6 G/DL (14.2-18.0); LYMPHOCYTES % (AUTO) 9.7 % (20.0-45.0); MEAN CORPUSCULAR VOLUME 95 FL (80-99); MONOCYTES % (AUTO) 7.5 % (1.0-10.0); NEUTROPHILS % (AUTO) 80.9 % (45.0-75.0); PLATELET COUNT 289 K/UL (150-450); RED BLOOD COUNT 4.52 M/UL (4.70-6.10); RED CELL DISTRIBUTION WIDTH 13.5 % (11.6-14.8); WHITE BLOOD COUNT 8.4 K/UL (4.8-10.8)
[2020-12-17 10:12] LABS: INR 1.1 (0.9-1.1)
[2020-12-17 10:20] LABS: PHOSPHORUS 2.8 MG/DL (2.5-4.9)
[2020-12-17 10:21] LABS: ALBUMIN/GLOBULIN RATIO 0.8 (1.0-2.7); BILIRUBIN,TOTAL 0.9 MG/DL (0.2-1.0); CALCIUM 8.8 MG/DL (8.5-10.1); CREATININE 1.4 MG/DL (0.55-1.30); POTASSIUM 3.4 MMOL/L (3.5-5.1)
[2020-12-17 12:00] VITALS: BP 118/68
--- NOTE | 2020-12-17 14:33 | Cardiac Electrophysiology PN ---
Assessment/Plan Assessment/Plan 1. Exacerbation of congestive heart failure with EF 20%, In 2015, it was only 25%. Decrease Lasix to 40 mg IV daily. Continue Toprol-XL 200 mg daily as well as benazepril 40 mg daily. 2. Atrial fibrillation. On Amiodarone 200 daily, Toprol 200 mg daily. Patient is on Xarelto 20 mg daily for anticoagulation as well. 3. Accelerated hypertension, on Toprol 200,Lasix, benazepril 40 mg daily, and amlodipine 10 mg daily. Patient is also on p.r.n. hydralazine 4. S/P DDD [place] [employer] ICD, interrogated and showed Nl Fx. Battery 6 years 90% atrial fib DW RN Subjective Subjective In atrial Fib with controlled rate.Diuresing well. BS ICD 2014 CHF EF 25% Objective Last 24 Hour Vital Signs Date Time Temp Pulse Resp B/P (MAP) Pulse Ox O2 Delivery O2 Flow Rate FiO2 12/17/20 12:00 94 12/17/20 12:00 97.9 99 22 118/68 (85) 96 12/17/20 12:00 Nasal Cannula 2.0 12/17/20 08:52 110 139/96 12/17/20 08:52 139/96 12/17/20 08:52 110 139/96 12/17/20 08:00 98.8 109 24 139/96 (110) 96 12/17/20 08:00 110 12/17/20 08:00 Nasal Cannula 2.0 12/17/20 04:00 99 12/17/20 04:00 Nasal Cannula 2.0 12/17/20 04:00 98.3 95 25 123/71 (88) 95 12/17/20 00:00 87 12/17/20 00:00 97.4 80 29 128/74 (92) 95 12/17/20 00:00 Nasal Cannula 2.0 12/16/20 20:00 86 12/16/20 20:00 97.9 93 27 124/82 (96) 96 12/16/20 20:00 Nasal Cannula 2.0 12/16/20 16:00 Nasal Cannula 2.0 12/16/20 16:00 89 12/16/20 16:00 98.2 98 22 116/83 (94) 98 Intake and Output 12/16/20 12/17/20 19:00 07:00 Intake Total 730 ml 1000 ml Output Total 700 ml 1600 ml Balance 30 ml -600 ml Intake Oral 730 ml 1000 ml Output Urine Total 700 ml 1600 ml Laboratory Tests Test 12/17/20 09:15 White Blood Count 8.4 K/UL (4.8-10.8) Red Blood Count 4.52 M/UL (4.70-6.10) L Hemoglobin 13.6 G/DL (14.2-18.0) L Hematocrit 42.9 % (42.0-52.0) Mean Corpuscular Volume 95 FL (80-99) Mean Corpuscular Hemoglobin 30.0 PG (27.0-31.0) Mean Corpuscular Hemoglobin Concent 31.7 G/DL (32.0-36.0) L Red Cell Distribution Width 13.5 % (11.6-14.8) Platelet Count 289 K/UL (150-450) Mean Platelet Volume 8.0 FL (6.5-10.1) Neutrophils (%) (Auto) 80.9 % (45.0-75.0) H Lymphocytes (%) (Auto) 9.7 % (20.0-45.0) L Monocytes (%) (Auto) 7.5 % (1.0-10.0) Eosinophils (%) (Auto) 1.4 % (0.0-3.0) Basophils (%) (Auto) 0.6 % (0.0-2.0) Erythrocyte Sedimentation Rate 18 MM/HR (0-20) Prothrombin Time 11.7 SEC (9.30-11.50) H Prothromb Time International Ratio 1.1 (0.9-1.1) Activated Partial Thromboplast Time 30 SEC (23-33) Sodium Level 147 MMOL/L (136-145) H Potassium Level 3.4 MMOL/L (3.5-5.1) L Chloride Level 108 MMOL/L (98-107) H Carbon Dioxide Level 34 MMOL/L (21-32) H Anion Gap 5 mmol/L (5-15) Blood Urea Nitrogen 25 mg/dL (7-18) H Creatinine 1.4 MG/DL (0.55-1.30) H Estimat Glomerular Filtration Rate 50.4 mL/min (>60) Glucose Level 140 MG/DL (74-106) H Lactic Acid Level 1.30 mmol/L (0.4-2.0) Uric Acid 6.9 MG/DL (2.6-7.2) Calcium Level 8.8 MG/DL (8.5-10.1) Phosphorus Level 2.8 MG/DL (2.5-4.9) Magnesium Level 1.9 MG/DL (1.8-2.4) Total Bilirubin 0.9 MG/DL (0.2-1.0) Aspartate Amino Transf (AST/SGOT) 11 U/L (15-37) L Alanine Aminotransferase (ALT/SGPT) 28 U/L (12-78) Alkaline Phosphatase 110 U/L (46-116) C-Reactive Protein, Quantitative 12.4 mg/dL (0.00-0.90) H Total Protein 7.0 G/DL (6.4-8.2) Albumin 3.0 G/DL (3.4-5.0) L Globulin 4.0 g/dL Albumin/Globulin Ratio 0.8 (1.0-2.7) L Amylase Level 75 U/L (25-115) Lipase 272 U/L (73-393) Microbiology Date/Time Source Procedure Growth Status 12/15/20 11:24 Nasopharynx SARS-CoV-2 RdRp Gene Assay - Final Complete Objective HEAD AND NECK: Positive JVD. LUNGS: Decreased breath sounds with basilar rales. CARDIOVASCULAR: Irregularly irregular S1 and S2. No gallop or murmur. ABDOMEN: Soft. EXTREMITIES: 1+ pitting edema. Defibrillator in left subclavian. Chong Yanez MD Dec 17, 2020 14:33
--- NOTE | 2020-12-17 14:41 | Surgery Progress Note ---
Surgery Progress Note Subjective Symptoms: improved, tolerating diet, passing flatus, pain decreased Objective Last 24 Hour Vital Signs Date Time Temp Pulse Resp B/P (MAP) Pulse Ox O2 Delivery O2 Flow Rate FiO2 12/17/20 12:00 94 12/17/20 12:00 97.9 99 22 118/68 (85) 96 12/17/20 12:00 Nasal Cannula 2.0 12/17/20 08:52 110 139/96 12/17/20 08:52 139/96 12/17/20 08:52 110 139/96 12/17/20 08:00 98.8 109 24 139/96 (110) 96 12/17/20 08:00 110 12/17/20 08:00 Nasal Cannula 2.0 12/17/20 04:00 99 12/17/20 04:00 Nasal Cannula 2.0 12/17/20 04:00 98.3 95 25 123/71 (88) 95 12/17/20 00:00 87 12/17/20 00:00 97.4 80 29 128/74 (92) 95 12/17/20 00:00 Nasal Cannula 2.0 12/16/20 20:00 86 12/16/20 20:00 97.9 93 27 124/82 (96) 96 12/16/20 20:00 Nasal Cannula 2.0 12/16/20 16:00 Nasal Cannula 2.0 12/16/20 16:00 89 12/16/20 16:00 98.2 98 22 116/83 (94) 98 I&O Intake and Output 12/16/20 12/17/20 19:00 07:00 Intake Total 730 ml 1000 ml Output Total 700 ml 1600 ml Balance 30 ml -600 ml Intake Oral 730 ml 1000 ml Output Urine Total 700 ml 1600 ml Cardiovascular: RSR Respiratory: clear Abdomen: soft, flat, non-tender, present bowel sounds, other, non-distended Extremities: no edema, no tenderness, no cyanosis Laboratory Tests Test 12/17/20 09:15 White Blood Count 8.4 K/UL (4.8-10.8) Red Blood Count 4.52 M/UL (4.70-6.10) L Hemoglobin 13.6 G/DL (14.2-18.0) L Hematocrit 42.9 % (42.0-52.0) Mean Corpuscular Volume 95 FL (80-99) Mean Corpuscular Hemoglobin 30.0 PG (27.0-31.0) Mean Corpuscular Hemoglobin Concent 31.7 G/DL (32.0-36.0) L Red Cell Distribution Width 13.5 % (11.6-14.8) Platelet Count 289 K/UL (150-450) Mean Platelet Volume 8.0 FL (6.5-10.1) Neutrophils (%) (Auto) 80.9 % (45.0-75.0) H Lymphocytes (%) (Auto) 9.7 % (20.0-45.0) L Monocytes (%) (Auto) 7.5 % (1.0-10.0) Eosinophils (%) (Auto) 1.4 % (0.0-3.0) Basophils (%) (Auto) 0.6 % (0.0-2.0) Erythrocyte Sedimentation Rate 18 MM/HR (0-20) Prothrombin Time 11.7 SEC (9.30-11.50) H Prothromb Time International Ratio 1.1 (0.9-1.1) Activated Partial Thromboplast Time 30 SEC (23-33) Sodium Level 147 MMOL/L (136-145) H Potassium Level 3.4 MMOL/L (3.5-5.1) L Chloride Level 108 MMOL/L (98-107) H Carbon Dioxide Level 34 MMOL/L (21-32) H Anion Gap 5 mmol/L (5-15) Blood Urea Nitrogen 25 mg/dL (7-18) H Creatinine 1.4 MG/DL (0.55-1.30) H Estimat Glomerular Filtration Rate 50.4 mL/min (>60) Glucose Level 140 MG/DL (74-106) H Lactic Acid Level 1.30 mmol/L (0.4-2.0) Uric Acid 6.9 MG/DL (2.6-7.2) Calcium Level 8.8 MG/DL (8.5-10.1) Phosphorus Level 2.8 MG/DL (2.5-4.9) Magnesium Level 1.9 MG/DL (1.8-2.4) Total Bilirubin 0.9 MG/DL (0.2-1.0) Aspartate Amino Transf (AST/SGOT) 11 U/L (15-37) L Alanine Aminotransferase (ALT/SGPT) 28 U/L (12-78) Alkaline Phosphatase 110 U/L (46-116) C-Reactive Protein, Quantitative 12.4 mg/dL (0.00-0.90) H Total Protein 7.0 G/DL (6.4-8.2) Albumin 3.0 G/DL (3.4-5.0) L Globulin 4.0 g/dL Albumin/Globulin Ratio 0.8 (1.0-2.7) L Amylase Level 75 U/L (25-115) Lipase 272 U/L (73-393) Plan Problems: (1) Abdominal distension Assessment & Plan: Abdominal distention shortness of breath likely unrelated. Labs noted renal insufficiency dehydrated. Constipated. Bowel regimen initiated KUB ordered. No acute surgical intervention planned. Okay for diet. Will follow with recommendations as imaging available. Thank you for letting participate in patient's care. Cardiology input appreciated nephrology input appreciated (2) GERD (gastroesophageal reflux disease) (3) Chest pain (4) ICD (implantable cardioverter-defibrillator) in place (5) Gastrointestinal hemorrhage (6) HTN (hypertension) (7) JEZ (acute kidney injury) (8) Arthritis (9) Gout attack (10) History of pacemaker (11) Atrial fibrillation (12) CHF (congestive heart failure) (13) Gout Bobby Mccray Dec 17, 2020 14:41
[2020-12-17 16:00] VITALS: BP 112/68
--- NOTE | 2020-12-17 16:43 | NUR ---
CASE MANAGEMENT:REVIEW 12/17/20 SI: AC/CHR CHF. AFIB. ACCELERATED HTN 98.8 109 24 139/96 96% ON 2L/NC HGB-13.6 K-3.4 BUN+25 CR+1.4 IS: IV LASIX QD ALLOPURINOL PO QD PROTONIX PO BID AMIODARONE PO QD TOPROL PO QD XARELTO PO QD LOTENSIN PO QD ASA PO QD NORVASC PO QD : TELEMETRY STATUS DCP: FROM HOME
--- NOTE | 2020-12-17 19:03 | Internal Med Progress Note ---
Subjective Date of Service: Dec 17, 2020 Physician Name Jeremy Hanson Attending Physician Abdiaziz Pedro MD Current Medications Medications (Trade) Dose Ordered Sig/Ronnie Route PRN Reason Start Time Stop Time Status Last Admin Dose Admin Acetaminophen (Tylenol) 650 mg Q4H PRN ORAL Mild Pain (Pain Scale 1-3) 12/15/20 15:15 01/14/21 15:14 Acetaminophen/ Codeine Phosphate (Tylenol #3) 1 tab Q8H PRN ORAL Pain Scale (6-10) 12/15/20 15:15 12/22/20 15:14 Allopurinol (Zyloprim) 200 mg DAILY ORAL 12/17/20 09:00 01/15/21 08:59 12/17/20 08:52 Amiodarone HCl (Cordarone) 200 mg DAILY ORAL 12/16/20 09:00 03/15/21 15:14 12/17/20 08:52 Amlodipine Besylate (Norvasc) 10 mg DAILY ORAL 12/16/20 09:00 01/15/21 08:59 12/17/20 08:52 Ascorbic Acid (Vitamin C) 500 mg DAILY ORAL 12/16/20 09:00 01/15/21 08:59 12/17/20 08:51 Aspirin (Ecotrin) 81 mg DAILY ORAL 12/16/20 09:00 01/30/21 08:59 12/17/20 08:52 Atorvastatin Calcium (Lipitor) 10 mg BEDTIME ORAL 12/15/20 21:00 03/15/21 20:59 12/16/20 20:24 Benazepril HCl (Lotensin) 40 mg DAILY ORAL 12/16/20 09:00 01/15/21 08:59 12/17/20 08:52 Docusate Sodium (Colace) 100 mg TID ORAL 12/16/20 13:00 01/14/21 17:59 12/17/20 17:59 Furosemide (Lasix) 40 mg DAILY IV 12/18/20 09:00 01/17/21 08:59 Metoprolol Succinate (Toprol XL) 200 mg DAILY ORAL 12/16/20 09:00 03/16/21 08:59 12/17/20 08:52 Nitroglycerin (Ntg) 0.4 mg Q5M PRN SL Prn Chest Pain 12/15/20 11:30 01/14/21 11:29 Ondansetron HCl (Zofran) 4 mg Q6H PRN IVP Nausea & Vomiting 12/15/20 15:15 01/14/21 15:14 Pantoprazole (Protonix) 40 mg BID ORAL 12/16/20 18:00 01/15/21 08:59 12/17/20 17:58 Rivaroxaban (Xarelto) 20 mg DAILY ORAL 12/16/20 09:00 03/16/21 08:59 12/17/20 08:51 Allergies: Coded Allergies: No Known Allergies (Verified , 03/15/10) ROS Limited/Unobtainable: No Constitutional: Reports: no symptoms HEENT: Reports: no symptoms Cardiovascular: Reports: no symptoms Respiratory: Reports: shortness of breath Gastrointestinal/Abdominal: Reports: no symptoms Genitourinary: Reports: no symptoms Neurologic/Psychiatric: Reports: no symptoms Subjective 70 YO M admitted with shortness of breath. Now acute congestive heart failure. Cover for Int Harsh-Dr Pedro Objective Last Vital Signs Date Time Temp Pulse Resp B/P (MAP) Pulse Ox O2 Delivery O2 Flow Rate FiO2 12/17/20 16:00 Nasal Cannula 2.0 12/17/20 16:00 89 12/17/20 16:00 97.5 24 112/68 (83) 97 Laboratory Tests Test 12/17/20 09:15 White Blood Count 8.4 K/UL (4.8-10.8) Red Blood Count 4.52 M/UL (4.70-6.10) L Hemoglobin 13.6 G/DL (14.2-18.0) L Hematocrit 42.9 % (42.0-52.0) Mean Corpuscular Volume 95 FL (80-99) Mean Corpuscular Hemoglobin 30.0 PG (27.0-31.0) Mean Corpuscular Hemoglobin Concent 31.7 G/DL (32.0-36.0) L Red Cell Distribution Width 13.5 % (11.6-14.8) Platelet Count 289 K/UL (150-450) Mean Platelet Volume 8.0 FL (6.5-10.1) Neutrophils (%) (Auto) 80.9 % (45.0-75.0) H Lymphocytes (%) (Auto) 9.7 % (20.0-45.0) L Monocytes (%) (Auto) 7.5 % (1.0-10.0) Eosinophils (%) (Auto) 1.4 % (0.0-3.0) Basophils (%) (Auto) 0.6 % (0.0-2.0) Erythrocyte Sedimentation Rate 18 MM/HR (0-20) Prothrombin Time 11.7 SEC (9.30-11.50) H Prothromb Time International Ratio 1.1 (0.9-1.1) Activated Partial Thromboplast Time 30 SEC (23-33) Sodium Level 147 MMOL/L (136-145) H Potassium Level 3.4 MMOL/L (3.5-5.1) L Chloride Level 108 MMOL/L (98-107) H Carbon Dioxide Level 34 MMOL/L (21-32) H Anion Gap 5 mmol/L (5-15) Blood Urea Nitrogen 25 mg/dL (7-18) H Creatinine 1.4 MG/DL (0.55-1.30) H Estimat Glomerular Filtration Rate 50.4 mL/min (>60) Glucose Level 140 MG/DL (74-106) H Lactic Acid Level 1.30 mmol/L (0.4-2.0) Uric Acid 6.9 MG/DL (2.6-7.2) Calcium Level 8.8 MG/DL (8.5-10.1) Phosphorus Level 2.8 MG/DL (2.5-4.9) Magnesium Level 1.9 MG/DL (1.8-2.4) Total Bilirubin 0.9 MG/DL (0.2-1.0) Aspartate Amino Transf (AST/SGOT) 11 U/L (15-37) L Alanine Aminotransferase (ALT/SGPT) 28 U/L (12-78) Alkaline Phosphatase 110 U/L (46-116) C-Reactive Protein, Quantitative 12.4 mg/dL (0.00-0.90) H Total Protein 7.0 G/DL (6.4-8.2) Albumin 3.0 G/DL (3.4-5.0) L Globulin 4.0 g/dL Albumin/Globulin Ratio 0.8 (1.0-2.7) L Amylase Level 75 U/L (25-115) Lipase 272 U/L (73-393) Microbiology Date/Time Source Procedure Growth Status 12/15/20 11:24 Nasopharynx SARS-CoV-2 RdRp Gene Assay - Final Complete Intake and Output 12/16/20 12/17/20 19:00 07:00 Intake Total 730 ml 1000 ml Output Total 700 ml 1600 ml Balance 30 ml -600 ml Intake Oral 730 ml 1000 ml Output Urine Total 700 ml 1600 ml Objective Objective GENERAL: The patient awake, responsive, no acute distress. HEAD AND NECK: Pupils are equal and reactive to light. Extraocular muscles intact. NECK: Supple. Positive JVD. LUNGS: Good air entry with no wheezing or rhonchi. Decreased air in bases. HEART: S1, S2. Irregular. No murmur or gallops. ICD in left-sided chest wall was noted. ABDOMEN: Soft, nondistended, nontender. No rebound tenderness. Morbidly obese. EXTREMITIES: No cyanosis, clubbing. +2 edema bilateral lower extremities. NEUROLOGIC: Cranial nerves II through XII are grossly normal. Motor is 5/5 in all extremities. Gait was not assessed due to the patient's status. RECTAL: Refused and deferred. GENITOURINARY: Refused and deferred. PSYCHIATRIC: Mood and affect is intact. Assessment/Plan Assessment/Plan Assessment/Plan Assessment/Plan ASSESSMENT: 1. Acute on chronic congestive heart failure. 2. Atrial fibrillation, rate control. 3. Accelerated hypertension. 4. Morbid obesity. 5. S/P ICD. 6. JEZ 7. LVEF=20-25%! PLAN: In monitored unit. Dr. Ynaez= Cardiology Dr. Abdirahman Kerr = Nephrology. On Lasix IV. Code status is full. DVT prophylaxis: Heparin subcutaneous. Monitor laboratory. Jeremy Hanson MD Dec 17, 2020 19:03
--- NOTE | 2020-12-17 19:19 | NUR ---
NURSE HAND-OFF REPORT: Important Events on Shift: n/a Patient Status: stable Diet: Cardiac diet Pending Orders: n/a Pending Results/Labs: abd x-ray Pending MD notification:n/a Latest Vital Signs: Temperature 97.5 , Pulse 89 , B/P 112 /68 , Respiratory Rate 24 , O2 SAT 97 , Room Air, O2 Flow Rate 2.0 . Vital Sign Comment: stable EKG Rhythm: Atrial Fibrillation Rhythm change?: N MD Notified?: N -Dr. Renata WOODALL Response: Latest Cummings Fall Score: 45 Fall Risk: High Risk Safety Measures: Call light Within Reach, Bed Alarm Zone 1, Side Rails Side Rails x2, Bed position Low and Locked. Fall Precautions: y Yellow Socks Patient Fall Education Report given to HARRIETT Momin.
--- NOTE | 2020-12-17 19:22 | NUR ---
NURSE NOTES: Report received from HARRIETT Coleman. Patient is awake on bed, alert and oriented x 4 in stable condition. personnel monitor is in place, shows Afib with HR of 80's, patient has pacemaker on left chest. On cardiac diet, instructed and amenable. IV site is on left hand g-20 saline locked that is patent and intact. On oxygen via nasal cannula @ 2Lpm saturating 95-96%. Safety measures are in place, bed in lowest and locked position, side rails up x 2, call light button and bedsdie table within reach, instructed top call for any assistance needed, will continue plan of care.
[2020-12-17 20:00] VITALS: BP 118/77
[2020-12-17] MEDS: Atorvastatin 20mg tab ORAL SCH (20:52)
--- NOTE | 2020-12-17 20:55 | NUR ---
NURSE NOTES: Patient complaints of sore throat, pain scale of 7. Dr. Hanson was aware personally. Gave Tylenol 3, 1 tablet per PRN ordered. Will continue to monitor.
--- NOTE | 2020-12-17 21:20 | Diagnostic Imaging Report ---
EXAM: XR Abdomen, 2 Views CLINICAL HISTORY: ABD DIST TECHNIQUE: Frontal view of the abdomen/pelvis with upright view of the abdomen. COMPARISON: Not FINDINGS: Intraperitoneal space: No free air. Gastrointestinal tract: Unremarkable. No dilation. Bones/joints: Unremarkable. IMPRESSION: The bowel gas pattern is nonobstructive.
[2020-12-18] VITALS: BP 121/79
[2020-12-18 04:00] VITALS: BP 122/83
--- NOTE | 2020-12-18 04:05 | NUR ---
NURSE NOTES: Patient has been saturating 95-98% on nasal cannula @ 2Lpm, no complaints of shortness of breath, titrate down oxygen to 1Lpm. Will monitor for any signs of distress.
--- NOTE | 2020-12-18 06:59 | NUR ---
NURSE HAND-OFF REPORT: Important Events on Shift: Patient complaints of sorethroat and was resolved with Tylenol 3. Saturating well the whole night, RN was able to titrated down patient's oxygen to 1Lpm. Patient Status: Patient is awake on bed in stable condition. Plan of care endorsed. Diet: Cardiac diet Pending Orders: none Pending Results/Labs:AM labs Pending MD notification:none Latest Vital Signs: Temperature 97.8 , Pulse 95 , B/P 122 /83 , Respiratory Rate 25 , O2 SAT 95 , Room Air, O2 Flow Rate 2.0 . Vital Sign Comment: stable EKG Rhythm: Afib/Afltter, V pacing Rhythm change?: N Notified?: N -Dr. Renata WOODALL Response: Latest Cummings Fall Score: 45 Fall Risk: High Risk Safety Measures: Call light Within Reach, Bed Alarm Zone 1, Side Rails Side Rails x2, Bed position Low and Locked. Fall Precautions: Yellow Socks Patient Fall Education Report given to HARRIETT Coleman.
--- NOTE | 2020-12-18 07:00 | NUR ---
NURSE NOTES: Received report from HARRIETT Momin. Pt in bed awake and orientedx4. No c/o pain. No acute distress noted. On 1LPM O2 via N/C. IV in right hand 20G SL patent and intact. Call light within easy reach. Side railsx2 up for safety. Will continue plan of care.
[2020-12-18 08:00] VITALS: BP 113/80
[2020-12-18] MEDS: Docusate 100mg cap ORAL SCH ×3 (08:43→17:21)
[2020-12-18] MEDS: Xarelto 10mg tab ORAL SCH (08:43)
[2020-12-18] MEDS: Amiodarone 200mg tab ORAL SCH (08:44)
[2020-12-18] MEDS: Metoprolol Succinate XL 100mg tab ORAL SCH (08:44)
[2020-12-18] MEDS: Aspirin EC 81mg tab ORAL SCH (08:44)
[2020-12-18] MEDS: Ascorbic Acid 500mg tab ORAL SCH (08:44)
[2020-12-18] MEDS: Allopurinol 100mg Tab ORAL SCH (08:47)
[2020-12-18 09:35] LABS: BASOPHILS % (AUTO) 0.9 % (0.0-2.0); EOSINOPHILS % (AUTO) 1.8 % (0.0-3.0); HEMATOCRIT 41.1 % (42.0-52.0); LYMPHOCYTES % (AUTO) 9.7 % (20.0-45.0); MEAN CORPUSCULAR VOLUME 96 FL (80-99); MONOCYTES % (AUTO) 8.6 % (1.0-10.0); PLATELET COUNT 270 K/UL (150-450); RED CELL DISTRIBUTION WIDTH 13.1 % (11.6-14.8)
[2020-12-18 09:47] LABS: CALCIUM 8.8 MG/DL (8.5-10.1); CREATININE 1.4 MG/DL (0.55-1.30); POTASSIUM 3.8 MMOL/L (3.5-5.1)
--- NOTE | 2020-12-18 10:10 | Nephrology Progress Note ---
Assessment/Plan Problem List: (1) JEZ (acute kidney injury) (2) HTN (hypertension) (3) ICD (implantable cardioverter-defibrillator) in place (4) CHF (congestive heart failure) (5) Atrial fibrillation (6) Gout Assessment CHF,History of cardiomyopathy At Fib HTN, uncontrolled at times History of gout Has defibrillator History of renal insufficiency History of anemia and previous transfusion GERD High cholesterol Plan December 18: Labs reviewed. Serum creatinine 1.4. Medication list reviewed. Blood pressure is stable. Continue per cardiology. Continue to monitor renal parameters. December 17: Today's labs pending as of now. Medication list reviewed. Patient clinically stable. Continue as is, per consultants. December 16: Optimize cardiac status. Keep the blood pressure in check. Monitor renal parameters. Avoid nephrotoxic's. Per orders. Per consultants. Subjective ROS Limited/Unobtainable: No Constitutional: Reports: malaise Objective Objective Last 24 Hour Vital Signs Date Time Temp Pulse Resp B/P (MAP) Pulse Ox O2 Delivery O2 Flow Rate FiO2 12/18/20 08:44 105 113/80 12/18/20 08:44 113/80 12/18/20 08:44 105 113/80 12/18/20 08:00 97.7 105 22 113/80 (91) 99 12/18/20 08:00 96 12/18/20 08:00 Nasal Cannula 1.0 12/18/20 04:00 97.8 88 25 122/83 (96) 95 12/18/20 04:00 95 12/18/20 00:00 98.3 103 24 121/79 (93) 94 12/18/20 00:00 92 12/17/20 20:00 Nasal Cannula 2.0 12/17/20 20:00 98.4 87 24 118/77 (91) 95 12/17/20 20:00 80 12/17/20 16:00 Nasal Cannula 2.0 12/17/20 16:00 89 12/17/20 16:00 97.5 89 24 112/68 (83) 97 12/17/20 12:00 94 12/17/20 12:00 97.9 99 22 118/68 (85) 96 12/17/20 12:00 Nasal Cannula 2.0 Intake and Output 12/17/20 12/18/20 19:00 07:00 Intake Total 390 ml 1200 ml Output Total 650 ml 900 ml Balance -260 ml 300 ml Intake Oral 390 ml 1200 ml Output Urine Total 650 ml 900 ml Current Medications Medications (Trade) Dose Ordered Sig/Ronnie Route PRN Reason Start Time Stop Time Status Last Admin Dose Admin Acetaminophen (Tylenol) 650 mg Q4H PRN ORAL Mild Pain (Pain Scale 1-3) 12/15/20 15:15 01/14/21 15:14 Acetaminophen/ Codeine Phosphate (Tylenol #3) 1 tab Q8H PRN ORAL Pain Scale (6-10) 12/15/20 15:15 12/22/20 15:14 12/17/20 20:53 Allopurinol (Zyloprim) 200 mg DAILY ORAL 12/17/20 09:00 01/15/21 08:59 12/18/20 08:47 Amiodarone HCl (Cordarone) 200 mg DAILY ORAL 12/16/20 09:00 03/15/21 15:14 12/18/20 08:44 Amlodipine Besylate (Norvasc) 10 mg DAILY ORAL 12/16/20 09:00 01/15/21 08:59 12/18/20 08:44 Ascorbic Acid (Vitamin C) 500 mg DAILY ORAL 12/16/20 09:00 01/15/21 08:59 12/18/20 08:44 Aspirin (Ecotrin) 81 mg DAILY ORAL 12/16/20 09:00 01/30/21 08:59 12/18/20 08:44 Atorvastatin Calcium (Lipitor) 10 mg BEDTIME ORAL 12/15/20 21:00 03/15/21 20:59 12/17/20 20:52 Benazepril HCl (Lotensin) 40 mg DAILY ORAL 12/16/20 09:00 01/15/21 08:59 12/18/20 08:44 Docusate Sodium (Colace) 100 mg TID ORAL 12/16/20 13:00 01/14/21 17:59 12/18/20 08:43 Furosemide (Lasix) 40 mg DAILY IV 12/18/20 09:00 01/17/21 08:59 12/18/20 08:47 Metoprolol Succinate (Toprol XL) 200 mg DAILY ORAL 12/16/20 09:00 03/16/21 08:59 12/18/20 08:44 Nitroglycerin (Ntg) 0.4 mg Q5M PRN SL Prn Chest Pain 12/15/20 11:30 01/14/21 11:29 Ondansetron HCl (Zofran) 4 mg Q6H PRN IVP Nausea & Vomiting 12/15/20 15:15 01/14/21 15:14 Pantoprazole (Protonix) 40 mg BID ORAL 12/16/20 18:00 01/15/21 08:59 12/18/20 08:44 Potassium Chloride (K-Dur) 40 meq ONCE ORAL 12/18/20 09:05 12/18/20 11:30 12/18/20 09:59 Rivaroxaban (Xarelto) 20 mg DAILY ORAL 12/16/20 09:00 03/16/21 08:59 12/18/20 08:43 Laboratory Tests 12/18/20 09:18: White Blood Count 8.0, Red Blood Count 4.30L, Hemoglobin 13.0L, Hematocrit 41.1L , Mean Corpuscular Volume 96, Mean Corpuscular Hemoglobin 30.2, Mean Corpuscular Hemoglobin Concent 31.6L, Red Cell Distribution Width 13.1, Platelet Count 270, Mean Platelet Volume 7.7, Neutrophils (%) (Auto) 79.0H, Lymphocytes (%) (Auto) 9.7L, Monocytes (%) (Auto) 8.6, Eosinophils (%) (Auto) 1.8, Basophils (%) (Auto) 0.9, Sodium Level 147H, Potassium Level 3.8, Chloride Level 110H, Carbon Dioxide Level 33H, Anion Gap 4L, Blood Urea Nitrogen 27H, Creatinine 1.4H, Estimat Glomerular Filtration Rate 50.4, Glucose Level 107H, Calcium Level 8.8 Height (Feet): 5 Height (Inches): 7.00 Weight (Pounds): 247 General Appearance: no apparent distress Cardiovascular: tachycardia Respiratory/Chest: decreased breath sounds Abdomen: soft Abdirahman Kerr MD Dec 18, 2020 10:10
[2020-12-18 11:07] VITALS: BP 112/74
--- NOTE | 2020-12-18 12:48 | Surgery Progress Note ---
Surgery Progress Note Subjective Symptoms: improved, pain absent, tolerating diet, voiding well, passing flatus, BM Objective Last 24 Hour Vital Signs Date Time Temp Pulse Resp B/P (MAP) Pulse Ox O2 Delivery O2 Flow Rate FiO2 12/18/20 12:00 91 12/18/20 11:07 98.1 91 22 112/74 (87) 97 12/18/20 08:44 105 113/80 12/18/20 08:44 113/80 12/18/20 08:44 105 113/80 12/18/20 08:00 97.7 105 22 113/80 (91) 99 12/18/20 08:00 96 12/18/20 08:00 Nasal Cannula 1.0 12/18/20 04:00 97.8 88 25 122/83 (96) 95 12/18/20 04:00 95 12/18/20 00:00 98.3 103 24 121/79 (93) 94 12/18/20 00:00 92 12/17/20 20:00 Nasal Cannula 2.0 12/17/20 20:00 98.4 87 24 118/77 (91) 95 12/17/20 20:00 80 12/17/20 16:00 Nasal Cannula 2.0 12/17/20 16:00 89 12/17/20 16:00 97.5 89 24 112/68 (83) 97 I&O Intake and Output 12/17/20 12/18/20 19:00 07:00 Intake Total 390 ml 1200 ml Output Total 650 ml 900 ml Balance -260 ml 300 ml Intake Oral 390 ml 1200 ml Output Urine Total 650 ml 900 ml Cardiovascular: RSR Respiratory: clear Abdomen: soft, flat, non-tender, present bowel sounds, non-distended Extremities: no edema, no tenderness, no cyanosis Laboratory Tests Test 12/18/20 09:18 White Blood Count 8.0 K/UL (4.8-10.8) Red Blood Count 4.30 M/UL (4.70-6.10) L Hemoglobin 13.0 G/DL (14.2-18.0) L Hematocrit 41.1 % (42.0-52.0) L Mean Corpuscular Volume 96 FL (80-99) Mean Corpuscular Hemoglobin 30.2 PG (27.0-31.0) Mean Corpuscular Hemoglobin Concent 31.6 G/DL (32.0-36.0) L Red Cell Distribution Width 13.1 % (11.6-14.8) Platelet Count 270 K/UL (150-450) Mean Platelet Volume 7.7 FL (6.5-10.1) Neutrophils (%) (Auto) 79.0 % (45.0-75.0) H Lymphocytes (%) (Auto) 9.7 % (20.0-45.0) L Monocytes (%) (Auto) 8.6 % (1.0-10.0) Eosinophils (%) (Auto) 1.8 % (0.0-3.0) Basophils (%) (Auto) 0.9 % (0.0-2.0) Sodium Level 147 MMOL/L (136-145) H Potassium Level 3.8 MMOL/L (3.5-5.1) Chloride Level 110 MMOL/L (98-107) H Carbon Dioxide Level 33 MMOL/L (21-32) H Anion Gap 4 mmol/L (5-15) L Blood Urea Nitrogen 27 mg/dL (7-18) H Creatinine 1.4 MG/DL (0.55-1.30) H Estimat Glomerular Filtration Rate 50.4 mL/min (>60) Glucose Level 107 MG/DL (74-106) H Calcium Level 8.8 MG/DL (8.5-10.1) Plan Problems: (1) Abdominal distension Assessment & Plan: Abdominal distention shortness of breath likely unrelated. Labs noted renal insufficiency dehydrated. Constipated. Bowel regimen initiated KUB ordered. No acute surgical intervention planned. Okay for diet. Will follow with recommendations as imaging available. Thank you for letting participate in patient's care. Cardiology input appreciated nephrology input appreciated KUB okay diet as tolerated activity as tolerated d/c planning labs okay (2) GERD (gastroesophageal reflux disease) (3) Chest pain (4) ICD (implantable cardioverter-defibrillator) in place (5) Gastrointestinal hemorrhage (6) HTN (hypertension) (7) JEZ (acute kidney injury) (8) Arthritis (9) Gout attack (10) History of pacemaker (11) Atrial fibrillation (12) CHF (congestive heart failure) (13) Gout Bobby Mccray Dec 18, 2020 12:48
--- NOTE | 2020-12-18 15:00 | NUR ---
NURSE NOTES: #c/o pain in sternum 12/07 The patient stated that he has been having pain since this morning after he took AM meds. But the pt did not tell the nurse because he thought it would go away. He c/o pain in sternum area 12/07. EKG, V/S checked and NTG 1T given as ordered. Pt not responding to NTG. There is no significant changes on EKG. Made aware. No new order received. Will continue plan of care.
[2020-12-18 15:51] VITALS: BP 130/73
--- NOTE | 2020-12-18 15:54 | Internal Med Progress Note ---
Subjective Date of Service: Dec 18, 2020 Physician Name Jeremy Hanson Attending Physician Abdiaziz Pedro MD Current Medications Medications (Trade) Dose Ordered Sig/Ronnie Route PRN Reason Start Time Stop Time Status Last Admin Dose Admin Acetaminophen (Tylenol) 650 mg Q4H PRN ORAL Mild Pain (Pain Scale 1-3) 12/15/20 15:15 01/14/21 15:14 Acetaminophen/ Codeine Phosphate (Tylenol #3) 1 tab Q8H PRN ORAL Pain Scale (6-10) 12/15/20 15:15 12/22/20 15:14 12/17/20 20:53 Allopurinol (Zyloprim) 200 mg DAILY ORAL 12/17/20 09:00 01/15/21 08:59 12/18/20 08:47 Amiodarone HCl (Cordarone) 200 mg DAILY ORAL 12/16/20 09:00 03/15/21 15:14 12/18/20 08:44 Amlodipine Besylate (Norvasc) 10 mg DAILY ORAL 12/16/20 09:00 01/15/21 08:59 12/18/20 08:44 Ascorbic Acid (Vitamin C) 500 mg DAILY ORAL 12/16/20 09:00 01/15/21 08:59 12/18/20 08:44 Aspirin (Ecotrin) 81 mg DAILY ORAL 12/16/20 09:00 01/30/21 08:59 12/18/20 08:44 Atorvastatin Calcium (Lipitor) 10 mg BEDTIME ORAL 12/15/20 21:00 03/15/21 20:59 12/17/20 20:52 Benazepril HCl (Lotensin) 40 mg DAILY ORAL 12/16/20 09:00 01/15/21 08:59 12/18/20 08:44 Docusate Sodium (Colace) 100 mg TID ORAL 12/16/20 13:00 01/14/21 17:59 12/18/20 13:21 Furosemide (Lasix) 40 mg DAILY IV 12/18/20 09:00 01/17/21 08:59 12/18/20 08:47 Metoprolol Succinate (Toprol XL) 200 mg DAILY ORAL 12/16/20 09:00 03/16/21 08:59 12/18/20 08:44 Nitroglycerin (Ntg) 0.4 mg Q5M PRN SL Prn Chest Pain 12/15/20 11:30 01/14/21 11:29 12/18/20 15:09 Ondansetron HCl (Zofran) 4 mg Q6H PRN IVP Nausea & Vomiting 12/15/20 15:15 01/14/21 15:14 Pantoprazole (Protonix) 40 mg BID ORAL 12/16/20 18:00 01/15/21 08:59 12/18/20 08:44 Rivaroxaban (Xarelto) 20 mg DAILY ORAL 12/16/20 09:00 03/16/21 08:59 12/18/20 08:43 Allergies: Coded Allergies: No Known Allergies (Verified , 03/15/10) ROS Limited/Unobtainable: No Constitutional: Reports: no symptoms HEENT: Reports: no symptoms Cardiovascular: Reports: no symptoms Respiratory: Reports: shortness of breath Gastrointestinal/Abdominal: Reports: no symptoms Genitourinary: Reports: no symptoms Neurologic/Psychiatric: Reports: no symptoms Subjective 70 YO M admitted with shortness of breath. Now acute congestive heart failure. Cover for Int Harsh-Dr Pedro Objective Last Vital Signs Date Time Temp Pulse Resp B/P (MAP) Pulse Ox O2 Delivery O2 Flow Rate FiO2 12/18/20 15:51 97.9 85 22 130/73 (92) 98 12/18/20 08:00 Nasal Cannula 1.0 Laboratory Tests Test 12/18/20 09:18 White Blood Count 8.0 K/UL (4.8-10.8) Red Blood Count 4.30 M/UL (4.70-6.10) L Hemoglobin 13.0 G/DL (14.2-18.0) L Hematocrit 41.1 % (42.0-52.0) L Mean Corpuscular Volume 96 FL (80-99) Mean Corpuscular Hemoglobin 30.2 PG (27.0-31.0) Mean Corpuscular Hemoglobin Concent 31.6 G/DL (32.0-36.0) L Red Cell Distribution Width 13.1 % (11.6-14.8) Platelet Count 270 K/UL (150-450) Mean Platelet Volume 7.7 FL (6.5-10.1) Neutrophils (%) (Auto) 79.0 % (45.0-75.0) H Lymphocytes (%) (Auto) 9.7 % (20.0-45.0) L Monocytes (%) (Auto) 8.6 % (1.0-10.0) Eosinophils (%) (Auto) 1.8 % (0.0-3.0) Basophils (%) (Auto) 0.9 % (0.0-2.0) Sodium Level 147 MMOL/L (136-145) H Potassium Level 3.8 MMOL/L (3.5-5.1) Chloride Level 110 MMOL/L (98-107) H Carbon Dioxide Level 33 MMOL/L (21-32) H Anion Gap 4 mmol/L (5-15) L Blood Urea Nitrogen 27 mg/dL (7-18) H Creatinine 1.4 MG/DL (0.55-1.30) H Estimat Glomerular Filtration Rate 50.4 mL/min (>60) Glucose Level 107 MG/DL (74-106) H Calcium Level 8.8 MG/DL (8.5-10.1) Intake and Output 12/17/20 12/18/20 19:00 07:00 Intake Total 390 ml 1200 ml Output Total 650 ml 900 ml Balance -260 ml 300 ml Intake Oral 390 ml 1200 ml Output Urine Total 650 ml 900 ml Objective Objective GENERAL: The patient awake, responsive, no acute distress. HEAD AND NECK: Pupils are equal and reactive to light. Extraocular muscles intact. NECK: Supple. Positive JVD. LUNGS: Good air entry with no wheezing or rhonchi. Decreased air in bases. HEART: S1, S2. Irregular. No murmur or gallops. ICD in left-sided chest wall was noted. ABDOMEN: Soft, nondistended, nontender. No rebound tenderness. Morbidly obese. EXTREMITIES: No cyanosis, clubbing. +2 edema bilateral lower extremities. NEUROLOGIC: Cranial nerves II through XII are grossly normal. Motor is 5/5 in all extremities. Gait was not assessed due to the patient's status. RECTAL: Refused and deferred. GENITOURINARY: Refused and deferred. PSYCHIATRIC: Mood and affect is intact. Assessment/Plan Assessment/Plan Assessment/Plan Assessment/Plan ASSESSMENT: 1. Acute on chronic congestive heart failure. 2. Atrial fibrillation, rate control. 3. Accelerated hypertension. 4. Morbid obesity. 5. S/P ICD. 6. JEZ 7. LVEF=20-25%! PLAN: In monitored unit. Dr. Yanez= Cardiology Dr. Abdirahman Kerr = Nephrology. On Lasix IV. Code status is full. DVT prophylaxis: Heparin subcutaneous. Monitor laboratory. Jeremy Hanson MD Dec 18, 2020 15:54
--- NOTE | 2020-12-18 19:33 | NUR ---
NURSE HAND-OFF REPORT: Important Events on Shift: c/o MD ALEX made aware Patient Status: stable/guarded Diet: cardiac Pending Orders: na Pending Results/Labs:na Pending notification:na Latest Vital Signs: Temperature 97.9 , Pulse 90 , B/P 130 /73 , Respiratory Rate 22 , O2 SAT 98 , Room Air, O2 Flow Rate 1.0 . Vital Sign Comment: stable EKG Rhythm: A.fib/V paced Rhythm change?: N Notified?: N -Dr. Renata WOODALL Response: Latest Cummings Fall Score: 60 Fall Risk: High Risk Safety Measures: Call light Within Reach, Bed Alarm Zone 1, Side Rails Side Rails x2, Bed position Low and Locked. Fall Precautions: Yellow Socks Patient Fall Education Report given to HARRIETT Dorantes.
[2020-12-18 20:00] VITALS: BP 136/85
[2020-12-18] MEDS: Atorvastatin 20mg tab ORAL SCH (20:52)
[2020-12-19] VITALS: BP 123/87
[2020-12-19 04:00] VITALS: BP 119/85
[2020-12-19 07:32] LABS: BASOPHILS % (AUTO) 0.4 % (0.0-2.0); EOSINOPHILS % (AUTO) 0.6 % (0.0-3.0); HEMATOCRIT 47.3 % (42.0-52.0); HEMOGLOBIN 14.7 G/DL (14.2-18.0); LYMPHOCYTES % (AUTO) 8.3 % (20.0-45.0); MEAN CORPUSCULAR VOLUME 96 FL (80-99); MONOCYTES % (AUTO) 6.2 % (1.0-10.0); NEUTROPHILS % (AUTO) 84.6 % (45.0-75.0); PLATELET COUNT 319 K/UL (150-450); RED BLOOD COUNT 4.94 M/UL (4.70-6.10); RED CELL DISTRIBUTION WIDTH 13.3 % (11.6-14.8); WHITE BLOOD COUNT 10.3 K/UL (4.8-10.8)
[2020-12-19 07:47] LABS: ALBUMIN 3.6 G/DL (3.4-5.0); ALBUMIN/GLOBULIN RATIO 0.8 (1.0-2.7); BILIRUBIN,TOTAL 1.1 MG/DL (0.2-1.0); CALCIUM 9.3 MG/DL (8.5-10.1); CREATININE 1.3 MG/DL (0.55-1.30); PHOSPHORUS 2.9 MG/DL (2.5-4.9); POTASSIUM 4.1 MMOL/L (3.5-5.1)
[2020-12-19 07:50] LABS: BILIRUBIN,DIRECT 0.3 MG/DL (0.0-0.3)
[2020-12-19 08:00] VITALS: BP 152/98
--- NOTE | 2020-12-19 08:08 | NUR ---
NURSE NOTES: Received patient report from HARRIETT Dorantes. Patient is AO x4 awake and able to make needs known. Patient says shortness of breath is less than it was earlier. Patient is on 3L nasal canula and saturation is 97%. Patient has blood shot red right eye. Informed Dr. Yanez, he DC aspirin. IV is intact and patent. There are no signs of erythema, infiltration, or bleeding at the time. Bed is in the lowest position, call light is within reach, side rails up x 3. Will continue plan of care.
--- NOTE | 2020-12-19 08:40 | Cardiac Electrophysiology PN ---
Assessment/Plan Assessment/Plan 1. Exacerbation of congestive heart failure with EF 20%, In 2015, it was only 25%. On Lasix 40 mg IV daily, Toprol-XL 200 mg daily and benazepril 40 mg daily. 2. Atrial fibrillation. On Amiodarone 200 daily, Toprol 200 mg daily and Xarelto 20 mg daily 3. Accelerated hypertension, on Toprol 200,Lasix, benazepril 40 mg daily, and amlodipine 10 mg daily. Patient is also on p.r.n. hydralazine 4. S/P DDD [employer] ICD, interrogated and showed Nl Fx. Battery 6 years 90% atrial fib 5. Right eye subconjunctival bleeding. Says it happens when he is on Aspirin DC Aspirin DW RN Subjective Subjective In atrial fib with with controlled rate.Diuresing well. BS ICD 2014 CHF EF 25% Developed scleral subconjunctival bleeding in Right eye Objective Last 24 Hour Vital Signs Date Time Temp Pulse Resp B/P (MAP) Pulse Ox O2 Delivery O2 Flow Rate FiO2 12/19/20 08:00 97.5 112 20 152/98 (116) 98 12/19/20 08:00 109 12/19/20 04:00 97.3 95 20 119/85 (96) 98 12/19/20 04:00 102 12/19/20 00:00 97.1 98 20 123/87 (99) 98 12/18/20 21:00 Nasal Cannula 1.0 12/18/20 20:00 90 12/18/20 20:00 97.3 84 22 136/85 (102) 98 12/18/20 16:00 90 12/18/20 15:51 97.9 85 22 130/73 (92) 98 12/18/20 15:09 139/99 12/18/20 12:00 91 12/18/20 11:07 98.1 91 22 112/74 (87) 97 12/18/20 08:44 105 113/80 12/18/20 08:44 113/80 12/18/20 08:44 105 113/80 Intake and Output 12/18/20 12/19/20 19:00 07:00 Intake Total 360 ml Balance 360 ml Intake Oral 360 ml # Voids 4 1 # Bowel Movements 1 1 Laboratory Tests Test 12/18/20 09:18 12/19/20 06:47 White Blood Count 8.0 K/UL (4.8-10.8) 10.3 K/UL (4.8-10.8) Red Blood Count 4.30 M/UL (4.70-6.10) L 4.94 M/UL (4.70-6.10) Hemoglobin 13.0 G/DL (14.2-18.0) L 14.7 G/DL (14.2-18.0) Hematocrit 41.1 % (42.0-52.0) L 47.3 % (42.0-52.0) Mean Corpuscular Volume 96 FL (80-99) 96 FL (80-99) Mean Corpuscular Hemoglobin 30.2 PG (27.0-31.0) 29.7 PG (27.0-31.0) Mean Corpuscular Hemoglobin Concent 31.6 G/DL (32.0-36.0) L 31.0 G/DL (32.0-36.0) L Red Cell Distribution Width 13.1 % (11.6-14.8) 13.3 % (11.6-14.8) Platelet Count 270 K/UL (150-450) 319 K/UL (150-450) Mean Platelet Volume 7.7 FL (6.5-10.1) 7.7 FL (6.5-10.1) Neutrophils (%) (Auto) 79.0 % (45.0-75.0) H 84.6 % (45.0-75.0) H Lymphocytes (%) (Auto) 9.7 % (20.0-45.0) L 8.3 % (20.0-45.0) L Monocytes (%) (Auto) 8.6 % (1.0-10.0) 6.2 % (1.0-10.0) Eosinophils (%) (Auto) 1.8 % (0.0-3.0) 0.6 % (0.0-3.0) Basophils (%) (Auto) 0.9 % (0.0-2.0) 0.4 % (0.0-2.0) Sodium Level 147 MMOL/L (136-145) H 144 MMOL/L (136-145) Potassium Level 3.8 MMOL/L (3.5-5.1) 4.1 MMOL/L (3.5-5.1) Chloride Level 110 MMOL/L (98-107) H 104 MMOL/L (98-107) Carbon Dioxide Level 33 MMOL/L (21-32) H 33 MMOL/L (21-32) H Anion Gap 4 mmol/L (5-15) L 7 mmol/L (5-15) Blood Urea Nitrogen 27 mg/dL (7-18) H 23 mg/dL (7-18) H Creatinine 1.4 MG/DL (0.55-1.30) H 1.3 MG/DL (0.55-1.30) Estimat Glomerular Filtration Rate 50.4 mL/min (>60) 54.9 mL/min (>60) Glucose Level 107 MG/DL (74-106) H 136 MG/DL (74-106) H Calcium Level 8.8 MG/DL (8.5-10.1) 9.3 MG/DL (8.5-10.1) Uric Acid 5.7 MG/DL (2.6-7.2) Phosphorus Level 2.9 MG/DL (2.5-4.9) Magnesium Level 2.0 MG/DL (1.8-2.4) Total Bilirubin 1.1 MG/DL (0.2-1.0) H Direct Bilirubin 0.3 MG/DL (0.0-0.3) Aspartate Amino Transf (AST/SGOT) 11 U/L (15-37) L Alanine Aminotransferase (ALT/SGPT) 25 U/L (12-78) Alkaline Phosphatase 138 U/L (46-116) H C-Reactive Protein, Quantitative 7.7 mg/dL (0.00-0.90) H Pro-B-Type Natriuretic Peptide 4181 pg/mL (0-125) H Total Protein 8.1 G/DL (6.4-8.2) Albumin 3.6 G/DL (3.4-5.0) Globulin 4.5 g/dL Albumin/Globulin Ratio 0.8 (1.0-2.7) L Objective HEAD AND NECK: Positive JVD. Right eye subconjunctival bleeding LUNGS: Decreased breath sounds with basilar rales. CARDIOVASCULAR: Irregularly irregular S1 and S2. No gallop or murmur. ABDOMEN: Soft. EXTREMITIES: 1+ pitting edema. Defibrillator in left subclavian. Chong Yanez MD Dec 19, 2020 08:40
[2020-12-19] MEDS: Docusate 100mg cap ORAL SCH ×3 (08:56→17:16)
[2020-12-19] MEDS: Amiodarone 200mg tab ORAL SCH (08:57)
[2020-12-19] MEDS: Xarelto 10mg tab ORAL SCH (08:57)
[2020-12-19] MEDS: Metoprolol Succinate XL 100mg tab ORAL SCH (08:57)
[2020-12-19] MEDS: Allopurinol 100mg Tab ORAL SCH (08:58)
[2020-12-19 12:00] VITALS: BP 132/94
--- NOTE | 2020-12-19 12:03 | Nephrology Progress Note ---
Assessment/Plan Problem List: (1) JEZ (acute kidney injury) (2) HTN (hypertension) (3) ICD (implantable cardioverter-defibrillator) in place (4) CHF (congestive heart failure) (5) Atrial fibrillation (6) Gout Assessment CHF,History of cardiomyopathy At Fib HTN, uncontrolled at times History of gout Has defibrillator History of renal insufficiency History of anemia and previous transfusion GERD High cholesterol Plan December 19: Labs reviewed. Electrolytes and renal parameters within normal limit. Continue as is. December 18: Labs reviewed. Serum creatinine 1.4. Medication list reviewed. Blood pressure is stable. Continue per cardiology. Continue to monitor renal parameters. December 17: Today's labs pending as of now. Medication list reviewed. Patient clinically stable. Continue as is, per consultants. December 16: Optimize cardiac status. Keep the blood pressure in check. Monitor renal parameters. Avoid nephrotoxic's. Per orders. Per consultants. Subjective ROS Limited/Unobtainable: No Constitutional: Reports: malaise Objective Objective Last 24 Hour Vital Signs Date Time Temp Pulse Resp B/P (MAP) Pulse Ox O2 Delivery O2 Flow Rate FiO2 12/19/20 09:00 Nasal Cannula 3.0 12/19/20 08:58 109 152/98 12/19/20 08:57 109 152/98 12/19/20 08:57 152/98 12/19/20 08:00 97.5 112 20 152/98 (116) 98 12/19/20 08:00 109 12/19/20 04:00 97.3 95 20 119/85 (96) 98 12/19/20 04:00 102 12/19/20 00:00 97.1 98 20 123/87 (99) 98 12/18/20 21:00 Nasal Cannula 1.0 12/18/20 20:00 90 12/18/20 20:00 97.3 84 22 136/85 (102) 98 12/18/20 16:00 90 12/18/20 15:51 97.9 85 22 130/73 (92) 98 12/18/20 15:09 139/99 Intake and Output 12/18/20 12/19/20 19:00 07:00 Intake Total 360 ml Balance 360 ml Intake Oral 360 ml # Voids 4 1 # Bowel Movements 1 1 Current Medications Medications (Trade) Dose Ordered Sig/Ronnie Route PRN Reason Start Time Stop Time Status Last Admin Dose Admin Acetaminophen (Tylenol) 650 mg Q4H PRN ORAL Mild Pain (Pain Scale 1-3) 12/15/20 15:15 01/14/21 15:14 Acetaminophen/ Codeine Phosphate (Tylenol #3) 1 tab Q8H PRN ORAL Pain Scale (6-10) 12/15/20 15:15 12/22/20 15:14 12/17/20 20:53 Al Hydroxide/Mg Hydroxide (Mylanta) 30 ml Q6H PRN ORAL For Pain 12/18/20 16:15 01/17/21 16:14 12/18/20 16:39 Allopurinol (Zyloprim) 200 mg DAILY ORAL 12/17/20 09:00 01/15/21 08:59 12/19/20 08:58 Amiodarone HCl (Cordarone) 200 mg DAILY ORAL 12/16/20 09:00 03/15/21 15:14 12/19/20 08:57 Amlodipine Besylate (Norvasc) 10 mg DAILY ORAL 12/16/20 09:00 01/15/21 08:59 12/19/20 08:58 Atorvastatin Calcium (Lipitor) 10 mg BEDTIME ORAL 12/15/20 21:00 03/15/21 20:59 12/18/20 20:52 Benazepril HCl (Lotensin) 40 mg DAILY ORAL 12/16/20 09:00 01/15/21 08:59 12/19/20 08:57 Docusate Sodium (Colace) 100 mg TID ORAL 12/16/20 13:00 01/14/21 17:59 12/19/20 08:56 Furosemide (Lasix) 40 mg DAILY IV 12/18/20 09:00 01/17/21 08:59 12/19/20 08:56 Metoprolol Succinate (Toprol XL) 200 mg DAILY ORAL 12/16/20 09:00 03/16/21 08:59 12/19/20 08:57 Nitroglycerin (Ntg) 0.4 mg Q5M PRN SL Prn Chest Pain 12/15/20 11:30 01/14/21 11:29 12/18/20 15:09 Ondansetron HCl (Zofran) 4 mg Q6H PRN IVP Nausea & Vomiting 12/15/20 15:15 4/17/21 15:14 Pantoprazole (Protonix) 40 mg BID ORAL 12/16/20 18:00 01/15/21 08:59 12/19/20 08:58 Rivaroxaban (Xarelto) 20 mg DAILY ORAL 12/16/20 09:00 03/16/21 08:59 12/19/20 08:57 Laboratory Tests 12/19/20 06:47: White Blood Count 10.3, Red Blood Count 4.94, Hemoglobin 14.7, Hematocrit 47.3, Mean Corpuscular Volume 96, Mean Corpuscular Hemoglobin 29.7, Mean Corpuscular Hemoglobin Concent 31.0L, Red Cell Distribution Width 13.3, Platelet Count 319, Mean Platelet Volume 7.7, Neutrophils (%) (Auto) 84.6H, Lymphocytes (%) (Auto) 8.3L, Monocytes (%) (Auto) 6.2, Eosinophils (%) (Auto) 0.6, Basophils (%) (Auto) 0.4, Sodium Level 144, Potassium Level 4.1, Chloride Level 104, Carbon Dioxide Level 33H, Anion Gap 7, Blood Urea Nitrogen 23H, Creatinine 1.3, Estimat Glomerular Filtration Rate 54.9, Glucose Level 136H, Uric Acid 5.7, Calcium Level 9.3, Phosphorus Level 2.9, Magnesium Level 2.0, Total Bilirubin 1.1H, Direct Bilirubin 0.3, Aspartate Amino Transf (AST/SGOT) 11L, Alanine Aminotransferase (ALT/SGPT) 25, Alkaline Phosphatase 138H, C-Reactive Protein, Quantitative 7.7H, Pro-B-Type Natriuretic Peptide 4181H, Total Protein 8.1, Albumin 3.6, Globulin 4.5, Albumin/Globulin Ratio 0.8L Height (Feet): 5 Height (Inches): 7.00 Weight (Pounds): 247 General Appearance: no apparent distress Cardiovascular: normal rate, tachycardia Respiratory/Chest: decreased breath sounds Abdirahman Kerr MD Dec 19, 2020 12:03
--- NOTE | 2020-12-19 12:57 | NUR ---
INSURANCE CLINICALS FAXED TO [facility] FAX [phone] TELE [phone]
--- NOTE | 2020-12-19 12:57 | Internal Med Progress Note ---
Subjective Date of Service: Dec 19, 2020 Physician Name Jeremy Hanson Attending Physician Abdiaziz Pedro MD Current Medications Medications (Trade) Dose Ordered Sig/Ronnie Route PRN Reason Start Time Stop Time Status Last Admin Dose Admin Acetaminophen (Tylenol) 650 mg Q4H PRN ORAL Mild Pain (Pain Scale 1-3) 12/15/20 15:15 01/14/21 15:14 Acetaminophen/ Codeine Phosphate (Tylenol #3) 1 tab Q8H PRN ORAL Pain Scale (6-10) 12/15/20 15:15 12/22/20 15:14 12/17/20 20:53 Al Hydroxide/Mg Hydroxide (Mylanta) 30 ml Q6H PRN ORAL For Pain 12/18/20 16:15 01/17/21 16:14 12/18/20 16:39 Allopurinol (Zyloprim) 200 mg DAILY ORAL 12/17/20 09:00 01/15/21 08:59 12/19/20 08:58 Amiodarone HCl (Cordarone) 200 mg DAILY ORAL 12/16/20 09:00 03/15/21 15:14 12/19/20 08:57 Amlodipine Besylate (Norvasc) 10 mg DAILY ORAL 12/16/20 09:00 01/15/21 08:59 12/19/20 08:58 Atorvastatin Calcium (Lipitor) 10 mg BEDTIME ORAL 12/15/20 21:00 03/15/21 20:59 12/18/20 20:52 Benazepril HCl (Lotensin) 40 mg DAILY ORAL 12/16/20 09:00 01/15/21 08:59 12/19/20 08:57 Docusate Sodium (Colace) 100 mg TID ORAL 12/16/20 13:00 01/14/21 17:59 12/19/20 08:56 Furosemide (Lasix) 40 mg DAILY IV 12/18/20 09:00 01/17/21 08:59 12/19/20 08:56 Metoprolol Succinate (Toprol XL) 200 mg DAILY ORAL 12/16/20 09:00 03/16/21 08:59 12/19/20 08:57 Nitroglycerin (Ntg) 0.4 mg Q5M PRN SL Prn Chest Pain 12/15/20 11:30 01/14/21 11:29 12/18/20 15:09 Ondansetron HCl (Zofran) 4 mg Q6H PRN IVP Nausea & Vomiting 12/15/20 15:15 01/14/21 15:14 Pantoprazole (Protonix) 40 mg BID ORAL 12/16/20 18:00 01/15/21 08:59 12/19/20 08:58 Rivaroxaban (Xarelto) 20 mg DAILY ORAL 12/16/20 09:00 03/16/21 08:59 12/19/20 08:57 Allergies: Coded Allergies: No Known Allergies (Verified , 03/15/10) ROS Limited/Unobtainable: No Constitutional: Reports: no symptoms HEENT: Reports: no symptoms Cardiovascular: Reports: no symptoms Respiratory: Reports: shortness of breath Gastrointestinal/Abdominal: Reports: no symptoms Genitourinary: Reports: no symptoms Neurologic/Psychiatric: Reports: no symptoms Subjective 70 YO M admitted with shortness of breath. Now acute congestive heart failure. Cover for Int Harsh-Dr Pedro Objective Last Vital Signs Date Time Temp Pulse Resp B/P (MAP) Pulse Ox O2 Delivery O2 Flow Rate FiO2 12/19/20 12:00 97 12/19/20 12:00 97.8 20 132/94 (107) 95 12/19/20 09:00 Nasal Cannula 3.0 Laboratory Tests Test 12/19/20 06:47 White Blood Count 10.3 K/UL (4.8-10.8) Red Blood Count 4.94 M/UL (4.70-6.10) Hemoglobin 14.7 G/DL (14.2-18.0) Hematocrit 47.3 % (42.0-52.0) Mean Corpuscular Volume 96 FL (80-99) Mean Corpuscular Hemoglobin 29.7 PG (27.0-31.0) Mean Corpuscular Hemoglobin Concent 31.0 G/DL (32.0-36.0) L Red Cell Distribution Width 13.3 % (11.6-14.8) Platelet Count 319 K/UL (150-450) Mean Platelet Volume 7.7 FL (6.5-10.1) Neutrophils (%) (Auto) 84.6 % (45.0-75.0) H Lymphocytes (%) (Auto) 8.3 % (20.0-45.0) L Monocytes (%) (Auto) 6.2 % (1.0-10.0) Eosinophils (%) (Auto) 0.6 % (0.0-3.0) Basophils (%) (Auto) 0.4 % (0.0-2.0) Sodium Level 144 MMOL/L (136-145) Potassium Level 4.1 MMOL/L (3.5-5.1) Chloride Level 104 MMOL/L (98-107) Carbon Dioxide Level 33 MMOL/L (21-32) H Anion Gap 7 mmol/L (5-15) Blood Urea Nitrogen 23 mg/dL (7-18) H Creatinine 1.3 MG/DL (0.55-1.30) Estimat Glomerular Filtration Rate 54.9 mL/min (>60) Glucose Level 136 MG/DL (74-106) H Uric Acid 5.7 MG/DL (2.6-7.2) Calcium Level 9.3 MG/DL (8.5-10.1) Phosphorus Level 2.9 MG/DL (2.5-4.9) Magnesium Level 2.0 MG/DL (1.8-2.4) Total Bilirubin 1.1 MG/DL (0.2-1.0) H Direct Bilirubin 0.3 MG/DL (0.0-0.3) Aspartate Amino Transf (AST/SGOT) 11 U/L (15-37) L Alanine Aminotransferase (ALT/SGPT) 25 U/L (12-78) Alkaline Phosphatase 138 U/L (46-116) H C-Reactive Protein, Quantitative 7.7 mg/dL (0.00-0.90) H Pro-B-Type Natriuretic Peptide 4181 pg/mL (0-125) H Total Protein 8.1 G/DL (6.4-8.2) Albumin 3.6 G/DL (3.4-5.0) Globulin 4.5 g/dL Albumin/Globulin Ratio 0.8 (1.0-2.7) L Intake and Output 12/18/20 12/19/20 19:00 07:00 Intake Total 360 ml Balance 360 ml Intake Oral 360 ml # Voids 4 1 # Bowel Movements 1 1 Objective Objective GENERAL: The patient awake, responsive, no acute distress. HEAD AND NECK: Pupils are equal and reactive to light. Extraocular muscles intact. NECK: Supple. Positive JVD. LUNGS: Good air entry with no wheezing or rhonchi. Decreased air in bases. HEART: S1, S2. Irregular. No murmur or gallops. ICD in left-sided chest wall was noted. ABDOMEN: Soft, nondistended, nontender. No rebound tenderness. Morbidly obese. EXTREMITIES: No cyanosis, clubbing. +2 edema bilateral lower extremities. NEUROLOGIC: Cranial nerves II through XII are grossly normal. Motor is 5/5 in all extremities. Gait was not assessed due to the patient's status. RECTAL: Refused and deferred. GENITOURINARY: Refused and deferred. PSYCHIATRIC: Mood and affect is intact. Assessment/Plan Assessment/Plan Assessment/Plan Assessment/Plan ASSESSMENT: 1. Acute on chronic congestive heart failure. 2. Atrial fibrillation, rate control. 3. Accelerated hypertension. 4. Morbid obesity. 5. S/P ICD. 6. JEZ 7. LVEF=20-25%! PLAN: In monitored unit. Dr. Yanez= Cardiology Dr. Abdirahman Kerr = Nephrology. On Lasix IV. Code status is full. DVT prophylaxis: Heparin subcutaneous. Monitor laboratory. Jeremy Hanson MD Dec 19, 2020 12:57
--- NOTE | 2020-12-19 15:15 | Surgery Progress Note ---
Surgery Progress Note Subjective Symptoms: improved, tolerating diet, voiding well, passing flatus, BM Objective Last 24 Hour Vital Signs Date Time Temp Pulse Resp B/P (MAP) Pulse Ox O2 Delivery O2 Flow Rate FiO2 12/19/20 12:00 97 12/19/20 12:00 97.8 99 20 132/94 (107) 95 12/19/20 09:00 Nasal Cannula 3.0 12/19/20 08:58 109 152/98 12/19/20 08:57 109 152/98 12/19/20 08:57 152/98 12/19/20 08:00 97.5 112 20 152/98 (116) 98 12/19/20 08:00 109 12/19/20 04:00 97.3 95 20 119/85 (96) 98 12/19/20 04:00 102 12/19/20 00:00 97.1 98 20 123/87 (99) 98 12/18/20 21:00 Nasal Cannula 1.0 12/18/20 20:00 90 12/18/20 20:00 97.3 84 22 136/85 (102) 98 12/18/20 16:00 90 12/18/20 15:51 97.9 85 22 130/73 (92) 98 I&O Intake and Output 12/18/20 12/19/20 19:00 07:00 Intake Total 360 ml Balance 360 ml Intake Oral 360 ml # Voids 4 1 # Bowel Movements 1 1 Cardiovascular: RSR Respiratory: clear Abdomen: soft, flat, non-tender, present bowel sounds, non-distended Extremities: no edema, no tenderness, no cyanosis Laboratory Tests Test 12/19/20 06:47 White Blood Count 10.3 K/UL (4.8-10.8) Red Blood Count 4.94 M/UL (4.70-6.10) Hemoglobin 14.7 G/DL (14.2-18.0) Hematocrit 47.3 % (42.0-52.0) Mean Corpuscular Volume 96 FL (80-99) Mean Corpuscular Hemoglobin 29.7 PG (27.0-31.0) Mean Corpuscular Hemoglobin Concent 31.0 G/DL (32.0-36.0) L Red Cell Distribution Width 13.3 % (11.6-14.8) Platelet Count 319 K/UL (150-450) Mean Platelet Volume 7.7 FL (6.5-10.1) Neutrophils (%) (Auto) 84.6 % (45.0-75.0) H Lymphocytes (%) (Auto) 8.3 % (20.0-45.0) L Monocytes (%) (Auto) 6.2 % (1.0-10.0) Eosinophils (%) (Auto) 0.6 % (0.0-3.0) Basophils (%) (Auto) 0.4 % (0.0-2.0) Sodium Level 144 MMOL/L (136-145) Potassium Level 4.1 MMOL/L (3.5-5.1) Chloride Level 104 MMOL/L (98-107) Carbon Dioxide Level 33 MMOL/L (21-32) H Anion Gap 7 mmol/L (5-15) Blood Urea Nitrogen 23 mg/dL (7-18) H Creatinine 1.3 MG/DL (0.55-1.30) Estimat Glomerular Filtration Rate 54.9 mL/min (>60) Glucose Level 136 MG/DL (74-106) H Uric Acid 5.7 MG/DL (2.6-7.2) Calcium Level 9.3 MG/DL (8.5-10.1) Phosphorus Level 2.9 MG/DL (2.5-4.9) Magnesium Level 2.0 MG/DL (1.8-2.4) Total Bilirubin 1.1 MG/DL (0.2-1.0) H Direct Bilirubin 0.3 MG/DL (0.0-0.3) Aspartate Amino Transf (AST/SGOT) 11 U/L (15-37) L Alanine Aminotransferase (ALT/SGPT) 25 U/L (12-78) Alkaline Phosphatase 138 U/L (46-116) H C-Reactive Protein, Quantitative 7.7 mg/dL (0.00-0.90) H Pro-B-Type Natriuretic Peptide 4181 pg/mL (0-125) H Total Protein 8.1 G/DL (6.4-8.2) Albumin 3.6 G/DL (3.4-5.0) Globulin 4.5 g/dL Albumin/Globulin Ratio 0.8 (1.0-2.7) L Plan Problems: (1) Abdominal distension Assessment & Plan: Abdominal distention shortness of breath likely unrelated. Labs noted renal insufficiency dehydrated. Constipated. Bowel regimen initiated KUB ordered. No acute surgical intervention planned. Okay for diet. Will follow with recommendations as imaging available. Thank you for letting participate in patient's care. Cardiology input appreciated nephrology input appreciated KUB okay diet as tolerated activity as tolerated d/c planning labs okay improved tolerating diet okay to d/c from surgical standpoint (2) GERD (gastroesophageal reflux disease) (3) Chest pain (4) ICD (implantable cardioverter-defibrillator) in place (5) Gastrointestinal hemorrhage (6) HTN (hypertension) (7) JEZ (acute kidney injury) (8) Arthritis (9) Gout attack (10) History of pacemaker (11) Atrial fibrillation (12) CHF (congestive heart failure) (13) Gout Bobby Mccray Dec 19, 2020 15:15
--- NOTE | 2020-12-19 15:27 | NUR ---
NURSE NOTES: Report given to HARRIETT Santana. Patient is AO x4 awake and able to make needs known. No signs of distress or pain at the time.
--- NOTE | 2020-12-19 15:30 | NUR ---
NURSE NOTES: Received pt from HARRIETT Rodrigez, pt is awake and alert, pt has NC 3lit, pt is on continues heart monitoring, pt has intact iv access LH 20G SL. No complain of pain at this moment. all needs attended, bed is locked and is in the lowest position, call light within easy reach. will continue to close monitoring.
[2020-12-19 15:52] VITALS: BP 126/79
--- NOTE | 2020-12-19 19:26 | NUR ---
NURSE HAND-OFF REPORT: Important Events on Shift: Patient Status: Diet: Pending Orders: Pending Results/Labs: Pending MD notification: Latest Vital Signs: Temperature 98.8 , Pulse 79 , B/P 126 /79 , Respiratory Rate 20 , O2 SAT 94 , Room Air, O2 Flow Rate 3.0 . Vital Sign Comment: EKG Rhythm: Afib/Aflutter with BBB, V pacing Rhythm change?: N MD Notified?: N -Dr. Renata WOODALL Response: Latest Cummings Fall Score: 60 Fall Risk: High Risk Safety Measures: Call light Within Reach, Bed Alarm Zone 1, Side Rails Side Rails x2, Bed position Low and Locked. Fall Precautions: Yellow Socks Patient Fall Education Report given to . Pt is awake and stable, no stress noted. endorsed plan of care.
[2020-12-19] MEDS: Atorvastatin 20mg tab ORAL SCH (20:42)
[2020-12-19 20:56] VITALS: BP 123/76
--- NOTE | 2020-12-19 22:17 | NUR ---
NURSE NOTES: Assumed pt's care from [facility] at 1900. Pt is aox4, no acute distress noted, cont on o2 3L via NC, respirations even and unlabored. RUnning Vpaced/AFIB on monitor. Safety and comfort measures maintained, call light within reach.
[2020-12-20] VITALS (7 sets, daily range): BP systolic 127–140; BP diastolic 81–99
[2020-12-20 07:29] LABS: ANION GAP 6 mmol/L (5-15); BLOOD UREA NITROGEN 22 mg/dL (7-18); CALCIUM 9.2 MG/DL (8.5-10.1); CARBON DIOXIDE 34 MMOL/L (21-32); CHLORIDE 111 MMOL/L (98-107); CREATININE 1.1 MG/DL (0.55-1.30); POTASSIUM 3.9 MMOL/L (3.5-5.1); SODIUM 151 MMOL/L (136-145)
--- NOTE | 2020-12-20 07:30 | NUR ---
Pt pulled Lt hand IV access, attempted to replace, refused. Day shift nurse aware.
[2020-12-20 07:41] LABS: BASOPHILS % (AUTO) 0.7 % (0.0-2.0); EOSINOPHILS % (AUTO) 1.5 % (0.0-3.0); HEMOGLOBIN 13.5 G/DL (14.2-18.0); LYMPHOCYTES % (AUTO) 10.2 % (20.0-45.0); MEAN CORPUSCULAR VOLUME 95 FL (80-99); MONOCYTES % (AUTO) 7.1 % (1.0-10.0); NEUTROPHILS % (AUTO) 80.4 % (45.0-75.0); PLATELET COUNT 268 K/UL (150-450); RED BLOOD COUNT 4.51 M/UL (4.70-6.10); RED CELL DISTRIBUTION WIDTH 13.1 % (11.6-14.8); WHITE BLOOD COUNT 7.4 K/UL (4.8-10.8)
--- NOTE | 2020-12-20 08:24 | NUR ---
RD ASSESSMENT & RECOMMENDATIONS SEE CARE ACTIVITY FOR COMPLETE ASSESSMENT DAILY ESTIMATED NEEDS: Needs based on Cardiac, pulmonary 84kg abw 25-30 kcals/kg 1219-1849 total kcals 1-1.5 g protein/kg 84-126 g total protein Fluid per MD, on lasix NUTRITION DIAGNOSIS: Decreased sodium and fat needs r/t BMI, HTN, CHF as evidenced by BMI 34.7, elevated BP(140/86), elev BNP(4181). CURRENT DIET: Cardiac PO DIET RECOMMENDATIONS: maintain Cardiac diet ADDITIONAL RECOMMENDATIONS: 1) Obtain a standing weight 2) Monitor lytes daily on lasix (elev Na 151 trend up) 3) Check HgA1C (BG elevated 104-136)
--- NOTE | 2020-12-20 08:26 | NUR ---
Hold today's dose of eliquis per Dr. Yanez will reevaluate on tomorrow.
[2020-12-20] MEDS: Xarelto 10mg tab ORAL SCH (09:00)
--- NOTE | 2020-12-20 09:43 | Nephrology Progress Note ---
Assessment/Plan Problem List: (1) JEZ (acute kidney injury) (2) HTN (hypertension) (3) ICD (implantable cardioverter-defibrillator) in place (4) CHF (congestive heart failure) (5) Atrial fibrillation (6) Gout Assessment CHF,History of cardiomyopathy At Fib HTN, uncontrolled at times History of gout Has defibrillator History of renal insufficiency History of anemia and previous transfusion GERD High cholesterol Plan December 20: Labs reviewed. Serum sodium slightly elevated. Medication list reviewed. Continues to be on Lasix intravenously per pantry chef. Continue to monitor her electrolytes. December 19: Labs reviewed. Electrolytes and renal parameters within normal limit. Continue as is. December 18: Labs reviewed. Serum creatinine 1.4. Medication list reviewed. Blood pressure is stable. Continue per cardiology. Continue to monitor renal parameters. December 17: Today's labs pending as of now. Medication list reviewed. Patient cl inically stable. Continue as is, per consultants. December 16: Optimize cardiac status. Keep the blood pressure in check. Monitor renal parameters. Avoid nephrotoxic's. Per orders. Per consultants. Subjective ROS Limited/Unobtainable: No Constitutional: Reports: malaise Objective Objective Last 24 Hour Vital Signs Date Time Temp Pulse Resp B/P (MAP) Pulse Ox O2 Delivery O2 Flow Rate FiO2 12/20/20 08:00 106 12/20/20 08:00 98.5 108 20 129/99 (109) 92 12/20/20 04:36 98.9 105 20 140/86 (104) 96 12/20/20 04:00 91 12/20/20 00:00 99.0 87 20 128/81 (97) 96 12/20/20 00:00 88 12/19/20 21:52 Nasal Cannula 3.0 12/19/20 20:58 88 12/19/20 20:56 98.3 92 20 123/76 (92) 96 12/19/20 15:52 98.8 79 20 126/79 (95) 94 12/19/20 15:12 91 12/19/20 12:00 97 12/19/20 12:00 97.8 99 20 132/94 (107) 95 Intake and Output 12/19/20 12/20/20 19:00 07:00 Intake Total 250 ml 240 ml Output Total 200 ml Balance 50 ml 240 ml Intake Oral 250 ml 240 ml Output Urine Total 200 ml # Voids 3 Current Medications Medications (Trade) Dose Ordered Sig/Ronnie Route PRN Reason Start Time Stop Time Status Last Admin Dose Admin Acetaminophen (Tylenol) 650 mg Q4H PRN ORAL Mild Pain (Pain Scale 1-3) 12/15/20 15:15 01/14/21 15:14 Acetaminophen/ Codeine Phosphate (Tylenol #3) 1 tab Q8H PRN ORAL Pain Scale (6-10) 12/15/20 15:15 12/22/20 15:14 12/17/20 20:53 Al Hydroxide/Mg Hydroxide (Mylanta) 30 ml Q6H PRN ORAL For Pain 12/18/20 16:15 01/17/21 16:14 12/18/20 16:39 Allopurinol (Zyloprim) 200 mg DAILY ORAL 12/17/20 09:00 01/15/21 08:59 12/19/20 08:58 Amiodarone HCl (Cordarone) 200 mg DAILY ORAL 12/16/20 09:00 03/15/21 15:14 12/19/20 08:57 Amlodipine Besylate (Norvasc) 10 mg DAILY ORAL 12/16/20 09:00 01/15/21 08:59 12/19/20 08:58 Atorvastatin Calcium (Lipitor) 10 mg BEDTIME ORAL 12/15/20 21:00 03/15/21 20:59 12/19/20 20:42 Benazepril HCl (Lotensin) 40 mg DAILY ORAL 12/16/20 09:00 01/15/21 08:59 12/19/20 08:57 Docusate Sodium (Colace) 100 mg TID ORAL 12/16/20 13:00 01/14/21 17:59 12/19/20 17:16 Furosemide (Lasix) 40 mg DAILY IV 12/18/20 09:00 01/17/21 08:59 12/19/20 08:56 Metoprolol Succinate (Toprol XL) 200 mg DAILY ORAL 12/16/20 09:00 03/16/21 08:59 12/19/20 08:57 Nitroglycerin (Ntg) 0.4 mg Q5M PRN SL Prn Chest Pain 12/15/20 11:30 01/14/21 11:29 12/18/20 15:09 Ondansetron HCl (Zofran) 4 mg Q6H PRN IVP Nausea & Vomiting 12/15/20 15:15 01/14/21 15:14 Pantoprazole (Protonix) 40 mg BID ORAL 12/16/20 18:00 01/15/21 08:59 12/19/20 17:16 Rivaroxaban (Xarelto) 20 mg DAILY ORAL 12/16/20 09:00 03/16/21 08:59 12/19/20 08:57 Laboratory Tests 12/20/20 06:38: White Blood Count 7.4, Red Blood Count 4.51L, Hemoglobin 13.5L, Hematocrit 43.0, Mean Corpuscular Volume 95, Mean Corpuscular Hemoglobin 29.8, Mean Corpuscular Hemoglobin Concent 31.3L, Red Cell Distribution Width 13.1, Platelet Count 268, Mean Platelet Volume 7.6, Neutrophils (%) (Auto) 80.4H, Lymphocytes (%) (Auto) 10.2L, Monocytes (%) (Auto) 7.1, Eosinophils (%) (Auto) 1.5, Basophils (%) (Auto) 0.7, Sodium Level 151H, Potassium Level 3.9, Chloride Level 111H, Carbon Dioxide Level 34H, Anion Gap 6, Blood Urea Nitrogen 22H, Creatinine 1.1, Estimat Glomerular Filtration Rate > 60, Glucose Level 111H, Calcium Level 9.2 Height (Feet): 5 Height (Inches): 7.00 Weight (Pounds): 247 General Appearance: no apparent distress Cardiovascular: tachycardia Respiratory/Chest: decreased breath sounds Abdomen: soft Abdirahman Kerr MD Dec 20, 2020 09:43
[2020-12-20] MEDS: Docusate 100mg cap ORAL SCH ×3 (09:44→18:41)
[2020-12-20] MEDS: Metoprolol Succinate XL 100mg tab ORAL SCH (09:44)
[2020-12-20] MEDS: Allopurinol 100mg Tab ORAL SCH (09:44)
[2020-12-20] MEDS: Amiodarone 200mg tab ORAL SCH (09:45)
--- NOTE | 2020-12-20 09:56 | Cardiac Electrophysiology PN ---
Assessment/Plan Assessment/Plan 1. Exacerbation of congestive heart failure with EF 20%, In 2014, it was only 25%. Change Lasix to 40 mg po daily.Continue Toprol-XL 200 mg daily and benazepril 40 mg daily. 2. Atrial fibrillation. On Amiodarone 200 daily, Toprol 200 mg daily and Xarelto 20 mg daily 3. Accelerated hypertension, on Toprol 200, Lasix, benazepril 40 mg daily, and amlodipine 10 mg daily. Patient is also on p.r.n. hydralazine 4. S/P DDD [employer] ICD, interrogated and showed Nl Fx. Battery 6 years 90% atrial fib 5. Right eye subconjunctival bleeding. Says it happens when he is on Aspirin DCed Aspirin. Hold Xarelto today DW RN Subjective Subjective In atrial fib with with controlled rate. BS ICD 2014 CHF EF 25% Scleral subconjunctival bleeding in Right eye still present despite DCing aspirin Objective Last 24 Hour Vital Signs Date Time Temp Pulse Resp B/P (MAP) Pulse Ox O2 Delivery O2 Flow Rate FiO2 12/20/20 09:45 129/99 12/20/20 09:45 106 129/99 12/20/20 09:44 106 129/99 12/20/20 08:00 106 12/20/20 08:00 98.5 108 20 129/99 (109) 92 12/20/20 04:36 98.9 105 20 140/86 (104) 96 12/20/20 04:00 91 12/20/20 00:00 99.0 87 20 128/81 (97) 96 12/20/20 00:00 88 12/19/20 21:52 Nasal Cannula 3.0 12/19/20 20:58 88 12/19/20 20:56 98.3 92 20 123/76 (92) 96 12/19/20 15:52 98.8 79 20 126/79 (95) 94 12/19/20 15:12 91 12/19/20 12:00 97 12/19/20 12:00 97.8 99 20 132/94 (107) 95 Intake and Output 12/19/20 12/20/20 19:00 07:00 Intake Total 250 ml 240 ml Output Total 200 ml Balance 50 ml 240 ml Intake Oral 250 ml 240 ml Output Urine Total 200 ml # Voids 3 Laboratory Tests Test 12/20/20 06:38 White Blood Count 7.4 K/UL (4.8-10.8) Red Blood Count 4.51 M/UL (4.70-6.10) L Hemoglobin 13.5 G/DL (14.2-18.0) L Hematocrit 43.0 % (42.0-52.0) Mean Corpuscular Volume 95 FL (80-99) Mean Corpuscular Hemoglobin 29.8 PG (27.0-31.0) Mean Corpuscular Hemoglobin Concent 31.3 G/DL (32.0-36.0) L Red Cell Distribution Width 13.1 % (11.6-14.8) Platelet Count 268 K/UL (150-450) Mean Platelet Volume 7.6 FL (6.5-10.1) Neutrophils (%) (Auto) 80.4 % (45.0-75.0) H Lymphocytes (%) (Auto) 10.2 % (20.0-45.0) L Monocytes (%) (Auto) 7.1 % (1.0-10.0) Eosinophils (%) (Auto) 1.5 % (0.0-3.0) Basophils (%) (Auto) 0.7 % (0.0-2.0) Sodium Level 151 MMOL/L (136-145) H Potassium Level 3.9 MMOL/L (3.5-5.1) Chloride Level 111 MMOL/L (98-107) H Carbon Dioxide Level 34 MMOL/L (21-32) H Anion Gap 6 mmol/L (5-15) Blood Urea Nitrogen 22 mg/dL (7-18) H Creatinine 1.1 MG/DL (0.55-1.30) Estimat Glomerular Filtration Rate > 60 mL/min (>60) Glucose Level 111 MG/DL (74-106) H Calcium Level 9.2 MG/DL (8.5-10.1) Objective HEAD AND NECK: Positive JVD. Right eye subconjunctival bleeding LUNGS: Decreased breath sounds with basilar rales. CARDIOVASCULAR: Irregularly irregular S1 and S2. No gallop or murmur. ABDOMEN: Soft. EXTREMITIES: 1+ pitting edema. Defibrillator in left subclavian. Chong Yanez MD Dec 20, 2020 09:56
[2020-12-20] MEDS ORDERED: Furosemide 40mg tab ORAL SCH (10:00)
--- NOTE | 2020-12-20 10:27 | Surgery Progress Note ---
Surgery Progress Note Subjective Symptoms: improved, tolerating diet, passing flatus Objective Last 24 Hour Vital Signs Date Time Temp Pulse Resp B/P (MAP) Pulse Ox O2 Delivery O2 Flow Rate FiO2 12/20/20 09:45 129/99 12/20/20 09:45 106 129/99 12/20/20 09:44 106 129/99 12/20/20 08:00 106 12/20/20 08:00 98.5 108 20 129/99 (109) 92 12/20/20 04:36 98.9 105 20 140/86 (104) 96 12/20/20 04:00 91 12/20/20 00:00 99.0 87 20 128/81 (97) 96 12/20/20 00:00 88 12/19/20 21:52 Nasal Cannula 3.0 12/19/20 20:58 88 12/19/20 20:56 98.3 92 20 123/76 (92) 96 12/19/20 15:52 98.8 79 20 126/79 (95) 94 12/19/20 15:12 91 12/19/20 12:00 97 12/19/20 12:00 97.8 99 20 132/94 (107) 95 I&O Intake and Output 12/19/20 12/20/20 19:00 07:00 Intake Total 250 ml 240 ml Output Total 200 ml Balance 50 ml 240 ml Intake Oral 250 ml 240 ml Output Urine Total 200 ml # Voids 3 Cardiovascular: RSR Respiratory: clear Abdomen: soft, flat, non-tender, present bowel sounds, non-distended Extremities: no edema, no tenderness, no cyanosis Laboratory Tests Test 12/20/20 06:38 White Blood Count 7.4 K/UL (4.8-10.8) Red Blood Count 4.51 M/UL (4.70-6.10) L Hemoglobin 13.5 G/DL (14.2-18.0) L Hematocrit 43.0 % (42.0-52.0) Mean Corpuscular Volume 95 FL (80-99) Mean Corpuscular Hemoglobin 29.8 PG (27.0-31.0) Mean Corpuscular Hemoglobin Concent 31.3 G/DL (32.0-36.0) L Red Cell Distribution Width 13.1 % (11.6-14.8) Platelet Count 268 K/UL (150-450) Mean Platelet Volume 7.6 FL (6.5-10.1) Neutrophils (%) (Auto) 80.4 % (45.0-75.0) H Lymphocytes (%) (Auto) 10.2 % (20.0-45.0) L Monocytes (%) (Auto) 7.1 % (1.0-10.0) Eosinophils (%) (Auto) 1.5 % (0.0-3.0) Basophils (%) (Auto) 0.7 % (0.0-2.0) Sodium Level 151 MMOL/L (136-145) H Potassium Level 3.9 MMOL/L (3.5-5.1) Chloride Level 111 MMOL/L (98-107) H Carbon Dioxide Level 34 MMOL/L (21-32) H Anion Gap 6 mmol/L (5-15) Blood Urea Nitrogen 22 mg/dL (7-18) H Creatinine 1.1 MG/DL (0.55-1.30) Estimat Glomerular Filtration Rate > 60 mL/min (>60) Glucose Level 111 MG/DL (74-106) H Calcium Level 9.2 MG/DL (8.5-10.1) Plan Problems: (1) Abdominal distension Assessment & Plan: Abdominal distention shortness of breath likely unrelated. Labs noted renal insufficiency dehydrated. Constipated. Bowel regimen initiated KUB ordered. No acute surgical intervention planned. Okay for diet. Will follow with recommendations as imaging available. Thank you for letting participate in patient's care. Cardiology input appreciated nephrology input appreciated KUB okay diet as tolerated activity as tolerated d/c planning labs okay improved tolerating diet okay to d/c from surgical standpoint (2) GERD (gastroesophageal reflux disease) (3) Chest pain (4) ICD (implantable cardioverter-defibrillator) in place (5) Gastrointestinal hemorrhage (6) HTN (hypertension) (7) JEZ (acute kidney injury) (8) Arthritis (9) Gout attack (10) History of pacemaker (11) Atrial fibrillation (12) CHF (congestive heart failure) (13) Gout Bobby Mccray Dec 20, 2020 10:27
[2020-12-20] MEDS: Furosemide 40mg tab ORAL SCH (10:55)
--- NOTE | 2020-12-20 11:38 | Cardiology Report ---
APPROVED REPORT EXAM: Two-dimensional and M-mode echocardiogram with Doppler and color Doppler. INDICATION Congestive Heart Failure M-Mode DIMENSIONS IVSd1.3 (0.7-1.1cm)Left Atrium (MM)4.7 (1.6-4.0cm) LVDd6.6 (3.5-5.6cm)Aortic Root3.5 (2.0-3.7cm) PWd1.7 (0.7-1.1cm)Aortic Cusp Exc.1.9 (1.5-2.0cm) IVSs1.6 cmEPSS2.0 (>1.0cm) LVDs5.5 (2.5-4.0cm) PWs1.9 cm Other Information Technically limited study due to poor acoustic windows & pt's body habitus. <Conclusion> Mild left ventricle dilatation. Severe global left ventricular hypokinesis with akinesis of the septum to extent visualized. Left ventricular ejection fraction estimated to be 30-35 %. Mild left ventricular hypertrophy. Anterior Echo-free space, may be due to pericardial fat or effusion. Mild left atrial enlargement. Right atrial size at upper limits of normal. Mild right ventricular chamber size enlargement. Mild focal aortic valve sclerosis with decreased cusp excursion. Thickened mitral valve leaflets with normal excursion. Mitral annulus and aortic root calcification. Pulmonic valve not well visualized. Normal tricuspid valve structure. IVC dilated at 2.3 cm and with slight collapse suggestive of increased RA pressure. A color flow and spectral Doppler study was performed and revealed: Trace aortic regurgitation. Mild mitral regurgitation. Can not determine left ventricular diastolic function by mitral diastolic velocities due to atrial fibrillation. Moderate tricuspid regurgitation. Tricuspid systolic velocities suggests peak right ventricular systolic pressure of 39 mmHg, consistent with mild pulmonary hypertension. Moderate Pulmonic regurgitation present.
--- NOTE | 2020-12-20 12:09 | Cardiology Report ---
APPROVED REPORT EKG Measurement Heart [id number] <Conclusion> Atrial fibrillation with rapid ventricular response with premature ventricular or aberrantly conducted complexes Left axis deviation Left ventricular hypertrophy with QRS widening Abnormal QRS-T angle, consider primary T wave abnormality Abnormal ECG
--- NOTE | 2020-12-20 12:39 | NUR ---
INSURANCE CLINICALS FAXED TO [facility]. FAX [phone] TELE [phone]
--- NOTE | 2020-12-20 16:10 | Internal Med Progress Note ---
Subjective Date of Service: Dec 20, 2020 Physician Name Jeremy Hanson Attending Physician Abdiaziz Pedro MD Current Medications Medications (Trade) Dose Ordered Sig/Ronnie Route PRN Reason Start Time Stop Time Status Last Admin Dose Admin Acetaminophen (Tylenol) 650 mg Q4H PRN ORAL Mild Pain (Pain Scale 1-3) 12/15/20 15:15 01/14/21 15:14 Acetaminophen/ Codeine Phosphate (Tylenol #3) 1 tab Q8H PRN ORAL Pain Scale (6-10) 12/15/20 15:15 12/22/20 15:14 12/17/20 20:53 Al Hydroxide/Mg Hydroxide (Mylanta) 30 ml Q6H PRN ORAL For Pain 12/18/20 16:15 01/17/21 16:14 12/18/20 16:39 Allopurinol (Zyloprim) 200 mg DAILY ORAL 12/17/20 09:00 01/15/21 08:59 12/20/20 09:44 Amiodarone HCl (Cordarone) 200 mg DAILY ORAL 12/16/20 09:00 03/15/21 15:14 12/20/20 09:45 Amlodipine Besylate (Norvasc) 10 mg DAILY ORAL 12/16/20 09:00 01/15/21 08:59 12/20/20 09:45 Atorvastatin Calcium (Lipitor) 10 mg BEDTIME ORAL 12/15/20 21:00 03/15/21 20:59 12/19/20 20:42 Benazepril HCl (Lotensin) 40 mg DAILY ORAL 12/16/20 09:00 01/15/21 08:59 12/20/20 09:45 Docusate Sodium (Colace) 100 mg TID ORAL 12/16/20 13:00 01/14/21 17:59 12/20/20 13:18 Furosemide (Lasix) 40 mg DAILY ORAL 12/20/20 10:00 01/19/21 09:59 12/20/20 10:55 Metoprolol Succinate (Toprol XL) 200 mg DAILY ORAL 12/16/20 09:00 03/16/21 08:59 12/20/20 09:44 Nitroglycerin (Ntg) 0.4 mg Q5M PRN SL Prn Chest Pain 12/15/20 11:30 01/14/21 11:29 12/18/20 15:09 Ondansetron HCl (Zofran) 4 mg Q6H PRN IVP Nausea & Vomiting 12/15/20 15:15 01/14/21 15:14 Pantoprazole (Protonix) 40 mg BID ORAL 12/16/20 18:00 01/15/21 08:59 12/20/20 09:44 Rivaroxaban (Xarelto) 20 mg DAILY ORAL 12/16/20 09:00 03/16/21 08:59 12/19/20 08:57 Allergies: Coded Allergies: No Known Allergies (Verified , 03/15/10) ROS Limited/Unobtainable: No Constitutional: Reports: no symptoms HEENT: Reports: no symptoms Cardiovascular: Reports: no symptoms Respiratory: Reports: shortness of breath Gastrointestinal/Abdominal: Reports: no symptoms Genitourinary: Reports: no symptoms Neurologic/Psychiatric: Reports: no symptoms Subjective 70 YO M admitted with shortness of breath. Now acute congestive heart failure. Cover for Int Harsh-Dr Pedro. C/O right eye redness Objective Last Vital Signs Date Time Temp Pulse Resp B/P (MAP) Pulse Ox O2 Delivery O2 Flow Rate FiO2 12/20/20 12:00 98.1 95 20 127/83 (98) 92 12/20/20 09:00 Nasal Cannula 3.0 Laboratory Tests Test 12/20/20 06:38 White Blood Count 7.4 K/UL (4.8-10.8) Red Blood Count 4.51 M/UL (4.70-6.10) L Hemoglobin 13.5 G/DL (14.2-18.0) L Hematocrit 43.0 % (42.0-52.0) Mean Corpuscular Volume 95 FL (80-99) Mean Corpuscular Hemoglobin 29.8 PG (27.0-31.0) Mean Corpuscular Hemoglobin Concent 31.3 G/DL (32.0-36.0) L Red Cell Distribution Width 13.1 % (11.6-14.8) Platelet Count 268 K/UL (150-450) Mean Platelet Volume 7.6 FL (6.5-10.1) Neutrophils (%) (Auto) 80.4 % (45.0-75.0) H Lymphocytes (%) (Auto) 10.2 % (20.0-45.0) L Monocytes (%) (Auto) 7.1 % (1.0-10.0) Eosinophils (%) (Auto) 1.5 % (0.0-3.0) Basophils (%) (Auto) 0.7 % (0.0-2.0) Sodium Level 151 MMOL/L (136-145) H Potassium Level 3.9 MMOL/L (3.5-5.1) Chloride Level 111 MMOL/L (98-107) H Carbon Dioxide Level 34 MMOL/L (21-32) H Anion Gap 6 mmol/L (5-15) Blood Urea Nitrogen 22 mg/dL (7-18) H Creatinine 1.1 MG/DL (0.55-1.30) Estimat Glomerular Filtration Rate > 60 mL/min (>60) Glucose Level 111 MG/DL (74-106) H Calcium Level 9.2 MG/DL (8.5-10.1) Intake and Output 12/19/20 12/20/20 19:00 07:00 Intake Total 250 ml 240 ml Output Total 200 ml Balance 50 ml 240 ml Intake Oral 250 ml 240 ml Output Urine Total 200 ml # Voids 3 Objective Objective GENERAL: The patient awake, responsive, no acute distress. HEAD AND NECK: Pupils are equal and reactive to light. Extraocular muscles intact. NECK: Supple. Positive JVD. LUNGS: Good air entry with no wheezing or rhonchi. Decreased air in bases. HEART: S1, S2. Irregular. No murmur or gallops. ICD in left-sided chest wall was noted. ABDOMEN: Soft, nondistended, nontender. No rebound tenderness. Morbidly obese. EXTREMITIES: No cyanosis, clubbing. +2 edema bilateral lower extremities. NEUROLOGIC: Cranial nerves II through XII are grossly normal. Motor is 5/5 in all extremities. Gait was not assessed due to the patient's status. RECTAL: Refused and deferred. GENITOURINARY: Refused and deferred. PSYCHIATRIC: Mood and affect is intact. Assessment/Plan Assessment/Plan Assessment/Plan Assessment/Plan ASSESSMENT: 1. Acute on chronic congestive heart failure. 2. Atrial fibrillation, rate control. 3. Accelerated hypertension. 4. Morbid obesity. 5. S/P ICD. 6. JEZ 7. LVEF=20-25%! 8. Right eye subconjunctival hemorrhage PLAN: In monitored unit. Dr. Yanez= Cardiology Dr. Abdirahman Kerr = Nephrology. On Lasix IV. Code status is full. DVT prophylaxis: Heparin subcutaneous. Monitor laboratory. Hold aspirin and xarelto Jeremy Hanson MD Dec 20, 2020 16:10
--- NOTE | 2020-12-20 19:30 | NUR ---
NURSE NOTES: Patient in bed, awake and alert x4. On nasal cannula at 2L with no signs of distress or SOB - O2 at 97%. No c/o pain at this time. No IV access, MD aware per AM nurse and IV medications have been changed to PO. Bed locked and in lowest position. Call light in reach. Bed alarm on. Will continue plan of care.
[2020-12-20] MEDS: Atorvastatin 20mg tab ORAL SCH (20:31)
[2020-12-21 04:00] VITALS: BP 144/90
[2020-12-21 05:57] LABS: BASOPHILS % (AUTO) 1.3 % (0.0-2.0); HEMATOCRIT 42.5 % (42.0-52.0); HEMOGLOBIN 13.5 G/DL (14.2-18.0); LYMPHOCYTES % (AUTO) 13.3 % (20.0-45.0); MEAN CORPUSCULAR VOLUME 92 FL (80-99); MONOCYTES % (AUTO) 7.7 % (1.0-10.0); NEUTROPHILS % (AUTO) 74.8 % (45.0-75.0); PLATELET COUNT 274 K/UL (150-450); RED BLOOD COUNT 4.62 M/UL (4.70-6.10); RED CELL DISTRIBUTION WIDTH 12.8 % (11.6-14.8); WHITE BLOOD COUNT 6.6 K/UL (4.8-10.8)
[2020-12-21 06:24] LABS: ALBUMIN 2.9 G/DL (3.4-5.0); ALBUMIN/GLOBULIN RATIO 0.7 (1.0-2.7); BILIRUBIN,TOTAL 0.9 MG/DL (0.2-1.0); CALCIUM 8.9 MG/DL (8.5-10.1); CREATININE 1.3 MG/DL (0.55-1.30); PHOSPHORUS 2.8 MG/DL (2.5-4.9); POTASSIUM 3.7 MMOL/L (3.5-5.1)
--- NOTE | 2020-12-21 06:27 | NUR ---
NURSE HAND-OFF REPORT: Important Events on Shift: No acute events; on 2L oxygen Patient Status: Stable Diet: Cardiac Pending Orders: N/A Pending Results/Labs: CBC, CRP, BNP, mag, phos, uric, CMP Pending MD notification: N/A Latest Vital Signs: Temperature 97.8 , Pulse 100 , B/P 144 /90 , Respiratory Rate 20 , O2 SAT 94 , Room Air, O2 Flow Rate 2.0 . Vital Sign Comment: [] EKG Rhythm: Afib/Aflutter with BBB, V pacing Rhythm change?: N Notified?: N -Dr. Renata WOODALL Response: Latest Cummings Fall Score: 60 Fall Risk: High Risk Safety Measures: Call light Within Reach, Bed Alarm Zone 1, Side Rails Side Rails x2, Bed position Low and Locked. Fall Precautions: Yellow Socks Patient Fall Education
[2020-12-21 08:00] VITALS: BP 116/97
--- NOTE | 2020-12-21 08:04 | NUR ---
Patient's oxygen saturation ranges between 94-97% on room air at rest.
[2020-12-21] MEDS ORDERED: Furosemide 40mg tab ORAL SCH (09:00)
[2020-12-21] MEDS: Furosemide 40mg tab ORAL SCH (09:14)
[2020-12-21] MEDS: Allopurinol 100mg Tab ORAL SCH (09:14)
[2020-12-21] MEDS: Docusate 100mg cap ORAL SCH ×3 (09:14→17:27)
[2020-12-21] MEDS: Amiodarone 200mg tab ORAL SCH (09:15)
[2020-12-21] MEDS: Metoprolol Succinate XL 100mg tab ORAL SCH (09:15)
--- NOTE | 2020-12-21 09:40 | Surgery Progress Note ---
Surgery Progress Note Subjective Symptoms: improved, pain absent, tolerating diet, voiding well, passing flatus, BM Objective Last 24 Hour Vital Signs Date Time Temp Pulse Resp B/P (MAP) Pulse Ox O2 Delivery O2 Flow Rate FiO2 12/21/20 09:15 98 116/97 12/21/20 09:14 116/97 12/21/20 09:00 98 116/97 12/21/20 08:00 98 12/21/20 08:00 97.9 98 20 116/97 (103) 94 12/21/20 04:00 97.8 100 20 144/90 (108) 94 12/21/20 03:19 106 12/20/20 23:46 97.9 87 18 127/82 (97) 95 12/20/20 23:15 93 12/20/20 20:49 Nasal Cannula 2.0 12/20/20 19:41 98.1 86 18 133/93 (106) 97 12/20/20 19:32 84 12/20/20 16:00 93 12/20/20 16:00 97.2 96 20 128/95 (106) 96 12/20/20 12:00 98.1 95 20 127/83 (98) 92 12/20/20 12:00 93 12/20/20 09:45 129/99 12/20/20 09:45 106 129/99 12/20/20 09:44 106 129/99 I&O Intake and Output 12/20/20 12/21/20 19:00 07:00 Intake Total 730 ml 480 ml Output Total 600 ml Balance 130 ml 480 ml Intake Oral 730 ml 480 ml Output Urine Total 600 ml # Voids 4 Dressing: dry Wound: clean Cardiovascular: RSR Respiratory: clear Abdomen: soft, flat, non-tender, present bowel sounds, non-distended Extremities: no edema, no tenderness, no cyanosis Laboratory Tests Test 12/21/20 05:49 White Blood Count 6.6 K/UL (4.8-10.8) Red Blood Count 4.62 M/UL (4.70-6.10) L Hemoglobin 13.5 G/DL (14.2-18.0) L Hematocrit 42.5 % (42.0-52.0) Mean Corpuscular Volume 92 FL (80-99) Mean Corpuscular Hemoglobin 29.3 PG (27.0-31.0) Mean Corpuscular Hemoglobin Concent 31.8 G/DL (32.0-36.0) L Red Cell Distribution Width 12.8 % (11.6-14.8) Platelet Count 274 K/UL (150-450) Mean Platelet Volume 7.4 FL (6.5-10.1) Neutrophils (%) (Auto) 74.8 % (45.0-75.0) Lymphocytes (%) (Auto) 13.3 % (20.0-45.0) L Monocytes (%) (Auto) 7.7 % (1.0-10.0) Eosinophils (%) (Auto) 3.0 % (0.0-3.0) Basophils (%) (Auto) 1.3 % (0.0-2.0) Sodium Level 145 MMOL/L (136-145) Potassium Level 3.7 MMOL/L (3.5-5.1) Chloride Level 106 MMOL/L (98-107) Carbon Dioxide Level 33 MMOL/L (21-32) H Anion Gap 7 mmol/L (5-15) Blood Urea Nitrogen 24 mg/dL (7-18) H Creatinine 1.3 MG/DL (0.55-1.30) Estimat Glomerular Filtration Rate 54.9 mL/min (>60) Glucose Level 109 MG/DL (74-106) H Uric Acid 5.0 MG/DL (2.6-7.2) Calcium Level 8.9 MG/DL (8.5-10.1) Phosphorus Level 2.8 MG/DL (2.5-4.9) Magnesium Level 2.1 MG/DL (1.8-2.4) Total Bilirubin 0.9 MG/DL (0.2-1.0) Aspartate Amino Transf (AST/SGOT) 9 U/L (15-37) L Alanine Aminotransferase (ALT/SGPT) 14 U/L (12-78) Alkaline Phosphatase 109 U/L (46-116) C-Reactive Protein, Quantitative 8.2 mg/dL (0.00-0.90) H Pro-B-Type Natriuretic Peptide 3235 pg/mL (0-125) H Total Protein 7.0 G/DL (6.4-8.2) Albumin 2.9 G/DL (3.4-5.0) L Globulin 4.1 g/dL Albumin/Globulin Ratio 0.7 (1.0-2.7) L Plan Problems: (1) Abdominal distension Assessment & Plan: Abdominal distention shortness of breath likely unrelated. Labs noted renal insufficiency dehydrated. Constipated. Bowel regimen initiated KUB ordered. No acute surgical intervention planned. Okay for diet. Will follow with recommendations as imaging available. Thank you for letting participate in patient's care. Cardiology input appreciated nephrology input appreciated KUB okay diet as tolerated activity as tolerated d/c planning labs okay improved tolerating diet okay to d/c from surgical standpoint (2) GERD (gastroesophageal reflux disease) (3) Chest pain (4) ICD (implantable cardioverter-defibrillator) in place (5) Gastrointestinal hemorrhage (6) HTN (hypertension) (7) JEZ (acute kidney injury) (8) Arthritis (9) Gout attack (10) History of pacemaker (11) Atrial fibrillation (12) CHF (congestive heart failure) (13) Gout Bobby Mccray Dec 21, 2020 09:40
--- NOTE | 2020-12-21 11:59 | Internal Med Progress Note ---
Subjective Date of Service: Dec 21, 2020 Physician Name Jeremy Hanson Attending Physician Abdiaziz Pedro MD Current Medications Medications (Trade) Dose Ordered Sig/Ronnie Route PRN Reason Start Time Stop Time Status Last Admin Dose Admin Acetaminophen (Tylenol) 650 mg Q4H PRN ORAL Mild Pain (Pain Scale 1-3) 12/15/20 15:15 01/14/21 15:14 Acetaminophen/ Codeine Phosphate (Tylenol #3) 1 tab Q8H PRN ORAL Pain Scale (6-10) 12/15/20 15:15 12/22/20 15:14 12/17/20 20:53 Al Hydroxide/Mg Hydroxide (Mylanta) 30 ml Q6H PRN ORAL For Pain 12/18/20 16:15 01/17/21 16:14 12/20/20 20:35 Allopurinol (Zyloprim) 200 mg DAILY ORAL 12/17/20 09:00 01/15/21 08:59 12/21/20 09:14 Amiodarone HCl (Cordarone) 200 mg DAILY ORAL 12/16/20 09:00 03/15/21 15:14 12/21/20 09:15 Amlodipine Besylate (Norvasc) 10 mg DAILY ORAL 12/16/20 09:00 01/15/21 08:59 12/20/20 09:45 Atorvastatin Calcium (Lipitor) 10 mg BEDTIME ORAL 12/15/20 21:00 03/15/21 20:59 12/20/20 20:31 Benazepril HCl (Lotensin) 40 mg DAILY ORAL 12/16/20 09:00 01/15/21 08:59 12/21/20 09:14 Docusate Sodium (Colace) 100 mg TID ORAL 12/16/20 13:00 01/14/21 17:59 12/21/20 09:14 Furosemide (Lasix) 40 mg DAILY ORAL 12/20/20 10:00 01/19/21 09:59 12/21/20 09:14 Metoprolol Succinate (Toprol XL) 200 mg DAILY ORAL 12/16/20 09:00 03/16/21 08:59 12/21/20 09:15 Nitroglycerin (Ntg) 0.4 mg Q5M PRN SL Prn Chest Pain 12/15/20 11:30 01/14/21 11:29 12/18/20 15:09 Ondansetron HCl (Zofran) 4 mg Q6H PRN IVP Nausea & Vomiting 12/15/20 15:15 01/14/21 15:14 Pantoprazole (Protonix) 40 mg BID ORAL 12/16/20 18:00 01/15/21 08:59 12/21/20 09:14 Rivaroxaban (Xarelto) 20 mg DAILY ORAL 12/16/20 09:00 03/16/21 08:59 12/19/20 08:57 Allergies: Coded Allergies: No Known Allergies (Verified , 03/15/10) ROS Limited/Unobtainable: No Constitutional: Reports: no symptoms HEENT: Reports: no symptoms Cardiovascular: Reports: no symptoms Respiratory: Reports: shortness of breath Gastrointestinal/Abdominal: Reports: no symptoms Genitourinary: Reports: no symptoms Neurologic/Psychiatric: Reports: no symptoms Subjective 70 YO M admitted with shortness of breath. Now acute congestive heart failure. Cover for Int Harsh-Dr Pedro. C/O right eye redness Objective Last Vital Signs Date Time Temp Pulse Resp B/P (MAP) Pulse Ox O2 Delivery O2 Flow Rate FiO2 12/21/20 09:15 98 116/97 12/21/20 09:00 Room Air 12/21/20 08:00 97.9 20 94 12/20/20 20:49 2.0 Laboratory Tests Test 12/21/20 05:49 White Blood Count 6.6 K/UL (4.8-10.8) Red Blood Count 4.62 M/UL (4.70-6.10) L Hemoglobin 13.5 G/DL (14.2-18.0) L Hematocrit 42.5 % (42.0-52.0) Mean Corpuscular Volume 92 FL (80-99) Mean Corpuscular Hemoglobin 29.3 PG (27.0-31.0) Mean Corpuscular Hemoglobin Concent 31.8 G/DL (32.0-36.0) L Red Cell Distribution Width 12.8 % (11.6-14.8) Platelet Count 274 K/UL (150-450) Mean Platelet Volume 7.4 FL (6.5-10.1) Neutrophils (%) (Auto) 74.8 % (45.0-75.0) Lymphocytes (%) (Auto) 13.3 % (20.0-45.0) L Monocytes (%) (Auto) 7.7 % (1.0-10.0) Eosinophils (%) (Auto) 3.0 % (0.0-3.0) Basophils (%) (Auto) 1.3 % (0.0-2.0) Sodium Level 145 MMOL/L (136-145) Potassium Level 3.7 MMOL/L (3.5-5.1) Chloride Level 106 MMOL/L (98-107) Carbon Dioxide Level 33 MMOL/L (21-32) H Anion Gap 7 mmol/L (5-15) Blood Urea Nitrogen 24 mg/dL (7-18) H Creatinine 1.3 MG/DL (0.55-1.30) Estimat Glomerular Filtration Rate 54.9 mL/min (>60) Glucose Level 109 MG/DL (74-106) H Uric Acid 5.0 MG/DL (2.6-7.2) Calcium Level 8.9 MG/DL (8.5-10.1) Phosphorus Level 2.8 MG/DL (2.5-4.9) Magnesium Level 2.1 MG/DL (1.8-2.4) Total Bilirubin 0.9 MG/DL (0.2-1.0) Aspartate Amino Transf (AST/SGOT) 9 U/L (15-37) L Alanine Aminotransferase (ALT/SGPT) 14 U/L (12-78) Alkaline Phosphatase 109 U/L (46-116) C-Reactive Protein, Quantitative 8.2 mg/dL (0.00-0.90) H Pro-B-Type Natriuretic Peptide 3235 pg/mL (0-125) H Total Protein 7.0 G/DL (6.4-8.2) Albumin 2.9 G/DL (3.4-5.0) L Globulin 4.1 g/dL Albumin/Globulin Ratio 0.7 (1.0-2.7) L Intake and Output 12/20/20 12/21/20 19:00 07:00 Intake Total 730 ml 480 ml Output Total 600 ml Balance 130 ml 480 ml Intake Oral 730 ml 480 ml Output Urine Total 600 ml # Voids 4 Objective Objective GENERAL: The patient awake, responsive, no acute distress. HEAD AND NECK: Pupils are equal and reactive to light. Extraocular muscles intact. NECK: Supple. Positive JVD. LUNGS: Good air entry with no wheezing or rhonchi. Decreased air in bases. HEART: S1, S2. Irregular. No murmur or gallops. ICD in left-sided chest wall was noted. ABDOMEN: Soft, nondistended, nontender. No rebound tenderness. Morbidly o bese. EXTREMITIES: No cyanosis, clubbing. +2 edema bilateral lower extremities. NEUROLOGIC: Cranial nerves II through XII are grossly normal. Motor is 5/5 in all extremities. Gait was not assessed due to the patient's status. RECTAL: Refused and deferred. GENITOURINARY: Refused and deferred. PSYCHIATRIC: Mood and affect is intact. Assessment/Plan Assessment/Plan Assessment/Plan Assessment/Plan ASSESSMENT: 1. Acute on chronic congestive heart failure. 2. Atrial fibrillation, rate control. 3. Accelerated hypertension. 4. Morbid obesity. 5. S/P ICD. 6. JEZ 7. LVEF=20-25%! 8. Right eye subconjunctival hemorrhage PLAN: In monitored unit. Dr. Yanez= Cardiology Dr. Abdirahman Kerr = Nephrology. On Lasix IV. Code status is full. DVT prophylaxis: Heparin subcutaneous. Monitor laboratory. Hold aspirin and xarelto Jeremy Hanson MD Dec 21, 2020 11:59
[2020-12-21 12:00] VITALS: BP 130/70
[2020-12-21] MEDS: Xarelto 10mg tab ORAL SCH (12:58)
--- NOTE | 2020-12-21 13:30 | Cardiac Electrophysiology PN ---
Assessment/Plan Assessment/Plan 1. Exacerbation of congestive heart failure with EF 20%, In 2014, it was only 25%. On Lasix 40 mg po daily, Toprol-XL 200 mg daily and benazepril 40 mg daily. 2. Atrial fibrillation. On Amiodarone 200 daily, Toprol 200 mg daily and Xarelto 20 mg daily( Hold for Subconjunctival hemorrhage) 3. Accelerated hypertension, on Toprol 200, Lasix, benazepril 40 mg daily, and amlodipine 10 mg daily and p.r.n. hydralazine 4. S/P DDD [employer] ICD, interrogated and showed Nl Fx. Battery 6 years 90% atrial fib 5. Right eye subconjunctival bleeding. Says it happens when he is on Aspirin DCed Aspirin. Hold Xarelto today again [place] RN and Dr Hanson Subjective Subjective In atrial fib with with controlled rate. S/P BS ICD 2014 CHF EF 25% Scleral subconjunctival bleeding in Right eye still present despite DCing being off Xarelto and aspirin x 2 days Objective Last 24 Hour Vital Signs Date Time Temp Pulse Resp B/P (MAP) Pulse Ox O2 Delivery O2 Flow Rate FiO2 12/21/20 12:00 98.0 100 20 130/70 (90) 99 12/21/20 12:00 100 12/21/20 09:15 98 116/97 12/21/20 09:14 116/97 12/21/20 09:00 98 116/97 12/21/20 09:00 Room Air 12/21/20 08:00 98 12/21/20 08:00 97.9 98 20 116/97 (103) 94 12/21/20 04:00 97.8 100 20 144/90 (108) 94 12/21/20 03:19 106 12/20/20 23:46 97.9 87 18 127/82 (97) 95 12/20/20 23:15 93 12/20/20 20:49 Nasal Cannula 2.0 12/20/20 19:41 98.1 86 18 133/93 (106) 97 12/20/20 19:32 84 12/20/20 16:00 93 12/20/20 16:00 97.2 96 20 128/95 (106) 96 Intake and Output 12/20/20 12/21/20 19:00 07:00 Intake Total 730 ml 480 ml Output Total 600 ml Balance 130 ml 480 ml Intake Oral 730 ml 480 ml Output Urine Total 600 ml # Voids 4 Laboratory Tests Test 12/21/20 05:49 White Blood Count 6.6 K/UL (4.8-10.8) Red Blood Count 4.62 M/UL (4.70-6.10) L Hemoglobin 13.5 G/DL (14.2-18.0) L Hematocrit 42.5 % (42.0-52.0) Mean Corpuscular Volume 92 FL (80-99) Mean Corpuscular Hemoglobin 29.3 PG (27.0-31.0) Mean Corpuscular Hemoglobin Concent 31.8 G/DL (32.0-36.0) L Red Cell Distribution Width 12.8 % (11.6-14.8) Platelet Count 274 K/UL (150-450) Mean Platelet Volume 7.4 FL (6.5-10.1) Neutrophils (%) (Auto) 74.8 % (45.0-75.0) Lymphocytes (%) (Auto) 13.3 % (20.0-45.0) L Monocytes (%) (Auto) 7.7 % (1.0-10.0) Eosinophils (%) (Auto) 3.0 % (0.0-3.0) Basophils (%) (Auto) 1.3 % (0.0-2.0) Sodium Level 145 MMOL/L (136-145) Potassium Level 3.7 MMOL/L (3.5-5.1) Chloride Level 106 MMOL/L (98-107) Carbon Dioxide Level 33 MMOL/L (21-32) H Anion Gap 7 mmol/L (5-15) Blood Urea Nitrogen 24 mg/dL (7-18) H Creatinine 1.3 MG/DL (0.55-1.30) Estimat Glomerular Filtration Rate 54.9 mL/min (>60) Glucose Level 109 MG/DL (74-106) H Uric Acid 5.0 MG/DL (2.6-7.2) Calcium Level 8.9 MG/DL (8.5-10.1) Phosphorus Level 2.8 MG/DL (2.5-4.9) Magnesium Level 2.1 MG/DL (1.8-2.4) Total Bilirubin 0.9 MG/DL (0.2-1.0) Aspartate Amino Transf (AST/SGOT) 9 U/L (15-37) L Alanine Aminotransferase (ALT/SGPT) 14 U/L (12-78) Alkaline Phosphatase 109 U/L (46-116) C-Reactive Protein, Quantitative 8.2 mg/dL (0.00-0.90) H Pro-B-Type Natriuretic Peptide 3235 pg/mL (0-125) H Total Protein 7.0 G/DL (6.4-8.2) Albumin 2.9 G/DL (3.4-5.0) L Globulin 4.1 g/dL Albumin/Globulin Ratio 0.7 (1.0-2.7) L Objective HEAD AND NECK: Positive JVD. Right eye subconjunctival bleeding LUNGS: Decreased breath sounds with basilar rales. CARDIOVASCULAR: Irregularly irregular S1 and S2. No gallop or murmur. ABDOMEN: Soft. EXTREMITIES: 1+ pitting edema. Defibrillator in left subclavian. Chong Yanez MD Dec 21, 2020 13:30
[2020-12-21 16:00] VITALS: BP 124/90
--- NOTE | 2020-12-21 16:35 | Nephrology Progress Note ---
Assessment/Plan Problem List: (1) JEZ (acute kidney injury) (2) HTN (hypertension) (3) ICD (implantable cardioverter-defibrillator) in place (4) CHF (congestive heart failure) (5) Atrial fibrillation (6) Gout Assessment CHF,History of cardiomyopathy At Fib HTN, uncontrolled at times History of gout Has defibrillator History of renal insufficiency History of anemia and previous transfusion GERD High cholesterol Plan December 21: Labs reviewed. Serum creatinine 1.3. Electrolytes stable. Medication list reviewed. Continue per cardiology advice. December 20: Labs reviewed. Serum sodium slightly elevated. Medication list reviewed. Continues to be on Lasix intravenously per ethernet network architect. Continue to monitor her electrolytes. December 19: Labs reviewed. Electrolytes and renal parameters within normal limit. Continue as is. December 18: Labs reviewed. Serum creatinine 1.4. Medication list reviewed. Blood pressure is stable. Continue per cardiology. Continue to monitor renal parameters. December 17: Today's labs pending as of now. Medication list reviewed. Patient clinically stable. Continue as is, per consultants. December 16: Optimize cardiac status. Keep the blood pressure in check. Monitor renal parameters. Avoid nephrotoxic's. Per orders. Per consultants. Objective Objective Last 24 Hour Vital Signs Date Time Temp Pulse Resp B/P (MAP) Pulse Ox O2 Delivery O2 Flow Rate FiO2 12/21/20 15:43 85 12/21/20 12:00 98.0 100 20 130/70 (90) 99 12/21/20 12:00 100 12/21/20 09:15 98 116/97 12/21/20 09:14 116/97 12/21/20 09:00 98 116/97 12/21/20 09:00 Room Air 12/21/20 08:00 98 12/21/20 08:00 97.9 98 20 116/97 (103) 94 12/21/20 04:00 97.8 100 20 144/90 (108) 94 12/21/20 03:19 106 12/20/20 23:46 97.9 87 18 127/82 (97) 95 12/20/20 23:15 93 12/20/20 20:49 Nasal Cannula 2.0 12/20/20 19:41 98.1 86 18 133/93 (106) 97 12/20/20 19:32 84 Intake and Output 12/20/20 12/21/20 19:00 07:00 Intake Total 730 ml 480 ml Output Total 600 ml Balance 130 ml 480 ml Intake Oral 730 ml 480 ml Output Urine Total 600 ml # Voids 4 Laboratory Tests 12/21/20 05:49: White Blood Count 6.6, Red Blood Count 4.62L, Hemoglobin 13.5L, Hematocrit 42.5, Mean Corpuscular Volume 92, Mean Corpuscular Hemoglobin 29.3, Mean Corpuscular Hemoglobin Concent 31.8L, Red Cell Distribution Width 12.8, Platelet Count 274, Mean Platelet Volume 7.4, Neutrophils (%) (Auto) 74.8, Lymphocytes (%) (Auto) 13.3L, Monocytes (%) (Auto) 7.7, Eosinophils (%) (Auto) 3.0, Basophils (%) (Auto) 1.3, Sodium Level 145, Potassium Level 3.7, Chloride Level 106, Carbon Dioxide Level 33H, Anion Gap 7, Blood Urea Nitrogen 24H, Creatinine 1.3, Estimat Glomerular Filtration Rate 54.9, Glucose Level 109H, Uric Acid 5.0, Calcium Level 8.9, Phosphorus Level 2.8, Magnesium Level 2.1, Total Bilirubin 0.9, Aspartate Amino Transf (AST/SGOT) 9L, Alanine Aminotransferase (ALT/SGPT) 14, Alkaline Phosphatase 109, C-Reactive Protein, Quantitative 8.2H, Pro-B-Type Natriuretic Peptide 3235H, Total Protein 7.0, Albumin 2.9L, Globulin 4.1, Albumin/Globulin Ratio 0.7L Height (Feet): 5 Height (Inches): 7.00 Weight (Pounds): 247 Abdirahman Kerr MD Dec 21, 2020 16:35
--- NOTE | 2020-12-21 17:58 | Nephrology Progress Note ---
Assessment/Plan Problem List: (1) JEZ (acute kidney injury) (2) HTN (hypertension) (3) ICD (implantable cardioverter-defibrillator) in place (4) CHF (congestive heart failure) (5) Atrial fibrillation (6) Gout Assessment CHF,History of cardiomyopathy At Fib HTN, uncontrolled at times History of gout Has defibrillator History of renal insufficiency History of anemia and previous transfusion GERD High cholesterol Plan December 21: Labs reviewed. Serum creatinine 1.3. Electrolytes stable. Medication list reviewed. Continue per cardiology advice. December 20: Labs reviewed. Serum sodium slightly elevated. Medication list reviewed. Continues to be on Lasix intravenously per cylinder grinder. Continue to monitor her electrolytes. December 19: Labs reviewed. Electrolytes and renal parameters within normal limit. Continue as is. December 18: Labs reviewed. Serum creatinine 1.4. Medication list reviewed. Blood pressure is stable. Continue per cardiology. Continue to monitor renal parameters. December 17: Today's labs pending as of now. Medication list reviewed. Patient clinically stable. Continue as is, per consultants. December 16: Optimize cardiac status. Keep the blood pressure in check. Monitor renal parameters. Avoid nephrotoxic's. Per orders. Per consultants. Subjective ROS Limited/Unobtainable: No Constitutional: Reports: malaise Objective Objective Last 24 Hour Vital Signs Date Time Temp Pulse Resp B/P (MAP) Pulse Ox O2 Delivery O2 Flow Rate FiO2 12/21/20 16:00 97.7 98 20 124/90 (101) 98 12/21/20 15:43 85 12/21/20 12:00 98.0 100 20 130/70 (90) 99 12/21/20 12:00 100 12/21/20 09:15 98 116/97 12/21/20 09:14 116/97 12/21/20 09:00 98 116/97 12/21/20 09:00 Room Air 12/21/20 08:00 98 12/21/20 08:00 97.9 98 20 116/97 (103) 94 12/21/20 04:00 97.8 100 20 144/90 (108) 94 12/21/20 03:19 106 12/20/20 23:46 97.9 87 18 127/82 (97) 95 12/20/20 23:15 93 12/20/20 20:49 Nasal Cannula 2.0 12/20/20 19:41 98.1 86 18 133/93 (106) 97 12/20/20 19:32 84 Intake and Output 12/20/20 12/21/20 19:00 07:00 Intake Total 730 ml 480 ml Output Total 600 ml Balance 130 ml 480 ml Intake Oral 730 ml 480 ml Output Urine Total 600 ml # Voids 4 Current Medications Medications (Trade) Dose Ordered Sig/Ronnie Route PRN Reason Start Time Stop Time Status Last Admin Dose Admin Acetaminophen (Tylenol) 650 mg Q4H PRN ORAL Mild Pain (Pain Scale 1-3) 12/15/20 15:15 01/14/21 15:14 Acetaminophen/ Codeine Phosphate (Tylenol #3) 1 tab Q8H PRN ORAL Pain Scale (6-10) 12/15/20 15:15 12/22/20 15:14 12/17/20 20:53 Al Hydroxide/Mg Hydroxide (Mylanta) 30 ml Q6H PRN ORAL For Pain 12/18/20 16:15 01/17/21 16:14 12/20/20 20:35 Allopurinol (Zyloprim) 200 mg DAILY ORAL 12/17/20 09:00 01/15/21 08:59 12/21/20 09:14 Amiodarone HCl (Cordarone) 200 mg DAILY ORAL 12/16/20 09:00 03/15/21 15:14 12/21/20 09:15 Amlodipine Besylate (Norvasc) 10 mg DAILY ORAL 12/16/20 09:00 01/15/21 08:59 12/20/20 09:45 Atorvastatin Calcium (Lipitor) 10 mg BEDTIME ORAL 12/15/20 21:00 03/15/21 20:59 12/20/20 20:31 Benazepril HCl (Lotensin) 40 mg DAILY ORAL 12/16/20 09:00 01/15/21 08:59 12/21/20 09:14 Docusate Sodium (Colace) 100 mg TID ORAL 12/16/20 13:00 01/14/21 17:59 12/21/20 17:27 Furosemide (Lasix) 40 mg DAILY ORAL 12/20/20 10:00 01/19/21 09:59 12/21/20 09:14 Metoprolol Succinate (Toprol XL) 200 mg DAILY ORAL 12/16/20 09:00 03/16/21 08:59 12/21/20 09:15 Nitroglycerin (Ntg) 0.4 mg Q5M PRN SL Prn Chest Pain 12/15/20 11:30 01/14/21 11:29 12/18/20 15:09 Ondansetron HCl (Zofran) 4 mg Q6H PRN IVP Nausea & Vomiting 12/15/20 15:15 01/14/21 15:14 Pantoprazole (Protonix) 40 mg BID ORAL 12/16/20 18:00 01/15/21 08:59 12/21/20 17:28 Rivaroxaban (Xarelto) 20 mg DAILY ORAL 12/16/20 09:00 03/16/21 08:59 12/19/20 08:57 Laboratory Tests 12/21/20 05:49: White Blood Count 6.6, Red Blood Count 4.62L, Hemoglobin 13.5L, Hematocrit 42.5, Mean Corpuscular Volume 92, Mean Corpuscular Hemoglobin 29.3, Mean Corpuscular Hemoglobin Concent 31.8L, Red Cell Distribution Width 12.8, Platelet Count 274, Mean Platelet Volume 7.4, Neutrophils (%) (Auto) 74.8, Lymphocytes (%) (Auto) 13.3L, Monocytes (%) (Auto) 7.7, Eosinophils (%) (Auto) 3.0, Basophils (%) (Auto) 1.3, Sodium Level 145, Potassium Level 3.7, Chloride Level 106, Carbon Dioxide Level 33H, Anion Gap 7, Blood Urea Nitrogen 24H, Creatinine 1.3, Estimat Glomerular Filtration Rate 54.9, Glucose Level 109H, Uric Acid 5.0, Calcium Level 8.9, Phosphorus Level 2.8, Magnesium Level 2.1, Total Bilirubin 0.9, Aspartate Amino Transf (AST/SGOT) 9L, Alanine Aminotransferase (ALT/SGPT) 14, Alkaline Phosphatase 109, C-Reactive Protein, Quantitative 8.2H, Pro-B-Type Karlene riuretic Peptide 3235H, Total Protein 7.0, Albumin 2.9L, Globulin 4.1, Albumin/Globulin Ratio 0.7L Height (Feet): 5 Height (Inches): 7.00 Weight (Pounds): 247 General Appearance: no apparent distress Cardiovascular: tachycardia Respiratory/Chest: decreased breath sounds Abdomen: distended Abdirahman Kerr MD Dec 21, 2020 17:58
[2020-12-21 20:00] VITALS: BP 132/90
[2020-12-21] MEDS: Atorvastatin 20mg tab ORAL SCH (21:41)
[2020-12-22] VITALS: BP 128/82
[2020-12-22 04:00] VITALS: BP 128/88
[2020-12-22 04:42] LABS: BASOPHILS % (AUTO) 1.3 % (0.0-2.0); EOSINOPHILS % (AUTO) 3.8 % (0.0-3.0); HEMOGLOBIN 13.4 G/DL (14.2-18.0); LYMPHOCYTES % (AUTO) 21.1 % (20.0-45.0); MEAN CORPUSCULAR VOLUME 91 FL (80-99); MONOCYTES % (AUTO) 8.7 % (1.0-10.0); NEUTROPHILS % (AUTO) 65.1 % (45.0-75.0); PLATELET COUNT 253 K/UL (150-450); RED BLOOD COUNT 4.51 M/UL (4.70-6.10); WHITE BLOOD COUNT 6.2 K/UL (4.8-10.8)
[2020-12-22 04:47] LABS: CALCIUM 8.9 MG/DL (8.5-10.1); CREATININE 1.3 MG/DL (0.55-1.30); POTASSIUM 3.6 MMOL/L (3.5-5.1)
[2020-12-22 08:00] VITALS: BP 107/81
--- NOTE | 2020-12-22 08:23 | NUR ---
NURSE NOTES: Received patient report from HARRIETT Dorantes. Patient is AO x4 awake and able to make needs known. Patient shows no signs of distress or pain at the time. There is no IV. Patient is on 3L nasal canula and shows no signs of distress or pain at the time. Bed is in the lowest position, call light is within reach, side rails up x3. Will continue plan of care.
[2020-12-22] MEDS: Xarelto 10mg tab ORAL SCH (09:00)
[2020-12-22] MEDS: Amiodarone 200mg tab ORAL SCH (09:14)
[2020-12-22] MEDS: Allopurinol 100mg Tab ORAL SCH (09:15)
[2020-12-22] MEDS: Docusate 100mg cap ORAL SCH ×3 (09:15→17:03)
[2020-12-22] MEDS: Metoprolol Succinate XL 100mg tab ORAL SCH (09:15)
[2020-12-22] MEDS: Furosemide 40mg tab ORAL SCH (09:15)
--- NOTE | 2020-12-22 10:09 | Cardiac Electrophysiology PN ---
Assessment/Plan Assessment/Plan 1. Exacerbation of congestive heart failure with EF 20%, In 2015, it was only 25%. On Lasix 40 mg po daily, Toprol-XL 200 mg daily and benazepril 40 mg daily. 2. Atrial fibrillation. On Amiodarone 200 daily, Toprol 200 mg daily and Xarelto 20 mg daily 3. Accelerated hypertension, on Toprol 200, Lasix, benazepril 40 mg daily, and amlodipine 10 mg daily and p.r.n. hydralazine 4. S/P DDD [employer] ICD, interrogated and showed Nl Fx. Battery 6 years 90% atrial fib 5. Right eye subconjunctival bleeding. Says it happens when he is on Aspirin DCed Aspirin. Resume Xarelto today [place] RN and Dr Hanson Subjective Subjective In atrial fib with with controlled rate. S/P BS ICD 2014 CHF EF 25% Scleral subconjunctival bleeding in Right eye resolving off Xarelto and aspirin No CP or SOB Objective Last 24 Hour Vital Signs Date Time Temp Pulse Resp B/P (MAP) Pulse Ox O2 Delivery O2 Flow Rate FiO2 12/22/20 09:15 84 107/81 12/22/20 09:00 107/81 12/22/20 09:00 84 107/81 12/22/20 04:00 86 12/22/20 04:00 97.7 91 18 128/88 (101) 95 12/22/20 00:00 98.2 79 18 128/82 (97) 95 12/21/20 21:00 Room Air 12/21/20 20:00 98.2 90 18 132/90 (104) 98 12/21/20 16:00 97.7 98 20 124/90 (101) 98 12/21/20 15:43 85 12/21/20 12:00 98.0 100 20 130/70 (90) 99 12/21/20 12:00 100 Intake and Output 12/21/20 12/22/20 19:00 07:00 Intake Total 600 ml Balance 600 ml Intake Oral 600 ml # Voids 3 5 # Bowel Movements 1 1 Laboratory Tests Test 12/22/20 03:40 White Blood Count 6.2 K/UL (4.8-10.8) Red Blood Count 4.51 M/UL (4.70-6.10) L Hemoglobin 13.4 G/DL (14.2-18.0) L Hematocrit 41.0 % (42.0-52.0) L Mean Corpuscular Volume 91 FL (80-99) Mean Corpuscular Hemoglobin 29.8 PG (27.0-31.0) Mean Corpuscular Hemoglobin Concent 32.8 G/DL (32.0-36.0) Red Cell Distribution Width 13.0 % (11.6-14.8) Platelet Count 253 K/UL (150-450) Mean Platelet Volume 7.3 FL (6.5-10.1) Neutrophils (%) (Auto) 65.1 % (45.0-75.0) Lymphocytes (%) (Auto) 21.1 % (20.0-45.0) Monocytes (%) (Auto) 8.7 % (1.0-10.0) Eosinophils (%) (Auto) 3.8 % (0.0-3.0) H Basophils (%) (Auto) 1.3 % (0.0-2.0) Sodium Level 145 MMOL/L (136-145) Potassium Level 3.6 MMOL/L (3.5-5.1) Chloride Level 107 MMOL/L (98-107) Carbon Dioxide Level 31 MMOL/L (21-32) Anion Gap 7 mmol/L (5-15) Blood Urea Nitrogen 26 mg/dL (7-18) H Creatinine 1.3 MG/DL (0.55-1.30) Estimat Glomerular Filtration Rate 54.9 mL/min (>60) Glucose Level 97 MG/DL (74-106) Calcium Level 8.9 MG/DL (8.5-10.1) Objective HEAD AND NECK: Positive JVD. Right eye subconjunctival bleeding LUNGS: Decreased breath sounds with basilar rales. CARDIOVASCULAR: Irregularly irregular S1 and S2. No gallop or murmur. ABDOMEN: Soft. EXTREMITIES: 1+ pitting edema. Defibrillator in left subclavian. Chong Yanez MD Dec 22, 2020 10:09
--- NOTE | 2020-12-22 10:43 | NUR ---
NURSE NOTES: Received report HARRIETT Rodrigez patient sitting side bed,using cell phone ,no complaints shortness breath ,on 2 L Nasal Cannula
--- NOTE | 2020-12-22 11:13 | NUR ---
NURSE NOTES: Report given to WILLIE German. Patient shows no signs of distress or pain.
--- NOTE | 2020-12-22 11:25 | Nephrology Progress Note ---
Assessment/Plan Problem List: (1) JEZ (acute kidney injury) (2) HTN (hypertension) (3) ICD (implantable cardioverter-defibrillator) in place (4) CHF (congestive heart failure) (5) Atrial fibrillation (6) Gout Assessment CHF,History of cardiomyopathy At Fib HTN, uncontrolled at times History of gout Has defibrillator History of renal insufficiency History of anemia and previous transfusion GERD High cholesterol Plan December 22: Labs reviewed. Renal parameters stable. Medication list reviewed. Continue per cardiology advice. December 21: Labs reviewed. Serum creatinine 1.3. Electrolytes stable. Medication list reviewed. Continue per cardiology advice. December 20: Labs reviewed. Serum sodium slightly elevated. Medication list reviewed. Continues to be on Lasix intravenously per novelty dipper. Continue to monitor her electrolytes. December 19: Labs reviewed. Electrolytes and renal parameters within normal limit. Continue as is. December 18: Labs reviewed. Serum creatinine 1.4. Medication list reviewed. Blood pressure is stable. Continue per cardiology. Continue to monitor renal parameters. December 17: Today's labs pending as of now. Medication list reviewed. Patient clinically stable. Continue as is, per consultants. December 16: Optimize cardiac status. Keep the blood pressure in check. Monitor renal parameters. Avoid nephrotoxic's. Per orders. Per consultants. Subjective ROS Limited/Unobtainable: No Constitutional: Reports: malaise, weakness Objective Objective Last 24 Hour Vital Signs Date Time Temp Pulse Resp B/P (MAP) Pulse Ox O2 Delivery O2 Flow Rate FiO2 12/22/20 09:15 84 107/81 12/22/20 09:00 Room Air 12/22/20 09:00 107/81 12/22/20 09:00 84 107/81 12/22/20 08:00 80 12/22/20 08:00 97.9 84 20 107/81 (90) 98 12/22/20 04:00 86 12/22/20 04:00 97.7 91 18 128/88 (101) 95 12/22/20 00:00 98.2 79 18 128/82 (97) 95 12/21/20 21:00 Room Air 12/21/20 20:00 98.2 90 18 132/90 (104) 98 12/21/20 16:00 97.7 98 20 124/90 (101) 98 12/21/20 15:43 85 12/21/20 12:00 98.0 100 20 130/70 (90) 99 12/21/20 12:00 100 Intake and Output 12/21/20 12/22/20 19:01 07:01 Intake Total 600 ml Balance 600 ml Intake Oral 600 ml # Voids 3 5 # Bowel Movements 1 1 Current Medications Medications (Trade) Dose Ordered Sig/Ronnie Route PRN Reason Start Time Stop Time Status Last Admin Dose Admin Acetaminophen (Tylenol) 650 mg Q4H PRN ORAL Mild Pain (Pain Scale 1-3) 12/15/20 15:15 01/14/21 15:14 Acetaminophen/ Codeine Phosphate (Tylenol #3) 1 tab Q8H PRN ORAL Pain Scale (6-10) 12/15/20 15:15 12/22/20 15:14 12/17/20 20:53 Al Hydroxide/Mg Hydroxide (Mylanta) 30 ml Q6H PRN ORAL For Pain 12/18/20 16:15 01/17/21 16:14 12/20/20 20:35 Allopurinol (Zyloprim) 200 mg DAILY ORAL 12/17/20 09:00 01/15/21 08:59 12/22/20 09:15 Amiodarone HCl (Cordarone) 200 mg DAILY ORAL 12/16/20 09:00 03/15/21 15:14 12/22/20 09:14 Amlodipine Besylate (Norvasc) 10 mg DAILY ORAL 12/16/20 09:00 01/15/21 08:59 12/20/20 09:45 Atorvastatin Calcium (Lipitor) 10 mg BEDTIME ORAL 12/15/20 21:00 03/15/21 20:59 12/21/20 21:41 Benazepril HCl (Lotensin) 40 mg DAILY ORAL 12/16/20 09:00 01/15/21 08:59 12/21/20 09:14 Docusate Sodium (Colace) 100 mg TID ORAL 12/16/20 13:00 01/14/21 17:59 12/22/20 09:15 Furosemide (Lasix) 40 mg DAILY ORAL 12/20/20 10:00 01/19/21 09:59 12/22/20 09:15 Metoprolol Succinate (Toprol XL) 200 mg DAILY ORAL 12/16/20 09:00 03/16/21 08:59 12/22/20 09:15 Nitroglycerin (Ntg) 0.4 mg Q5M PRN SL Prn Chest Pain 12/15/20 11:30 01/14/21 11:29 12/18/20 15:09 Ondansetron HCl (Zofran) 4 mg Q6H PRN IVP Nausea & Vomiting 12/15/20 15:15 01/14/21 15:14 Pantoprazole (Protonix) 40 mg BID ORAL 12/16/20 18:00 01/15/21 08:59 12/22/20 09:14 Rivaroxaban (Xarelto) 20 mg DAILY ORAL 12/16/20 09:00 03/16/21 08:59 12/19/20 08:57 Laboratory Tests 12/22/20 03:40: White Blood Count 6.2, Red Blood Count 4.51L, Hemoglobin 13.4L, Hematocrit 41.0L , Mean Corpuscular Volume 91, Mean Corpuscular Hemoglobin 29.8, Mean Corpuscular Hemoglobin Concent 32.8, Red Cell Distribution Width 13.0, Platelet Count 253, Mean Platelet Volume 7.3, Neutrophils (%) (Auto) 65.1, Lymphocytes (%) (Auto) 21.1, Monocytes (%) (Auto) 8.7, Eosinophils (%) (Auto) 3.8H, Basophils (%) (Auto) 1.3, Sodium Level 145, Potassium Level 3.6, Chloride Level 107, Carbon Dioxide Level 31, Anion Gap 7, Blood Urea Nitrogen 26H, Creatinine 1.3, Estimat Glomerular Filtration Rate 54.9, Glucose Level 97, Calcium Level 8.9 Height (Feet): 5 Height (Inches): 7.00 Weight (Pounds): 247 General Appearance: no apparent distress Cardiovascular: tachycardia Respiratory/Chest: decreased breath sounds Abdomen: distended Abdirahman Kerr MD Dec 22, 2020 11:25
[2020-12-22 12:00] VITALS: BP 127/93
--- NOTE | 2020-12-22 13:25 | NUR ---
INSURANCE CLINICALS FAXED TO [facility] FAX [phone] TELE [phone]
--- NOTE | 2020-12-22 13:46 | NUR ---
NURSE NOTES: Received pt from HARRIETT German, pt is awake and alert, pt has NC 2lit, pt is on continues heart monitoring, pt has no iv access. No complain of pain at this moment. all needs attended, bed is locked and is in the lowest position, call light within easy reach. will continue to close monitoring.
--- NOTE | 2020-12-22 14:01 | Surgery Progress Note ---
Surgery Progress Note Subjective Symptoms: passing flatus, BM Additional Comments on nasal cannula doing well sitting up comfortable no complaints tolerating diet Objective Last 24 Hour Vital Signs Date Time Temp Pulse Resp B/P (MAP) Pulse Ox O2 Delivery O2 Flow Rate FiO2 12/22/20 12:00 97.5 83 20 127/93 (104) 95 12/22/20 11:53 80 12/22/20 09:15 84 107/81 12/22/20 09:00 Room Air 12/22/20 09:00 107/81 12/22/20 09:00 84 107/81 12/22/20 08:00 80 12/22/20 08:00 97.9 84 20 107/81 (90) 98 12/22/20 04:00 86 12/22/20 04:00 97.7 91 18 128/88 (101) 95 12/22/20 00:00 98.2 79 18 128/82 (97) 95 12/21/20 21:00 Room Air 12/21/20 20:00 98.2 90 18 132/90 (104) 98 12/21/20 16:00 97.7 98 20 124/90 (101) 98 12/21/20 15:43 85 I&O Intake and Output 12/21/20 12/22/20 19:00 07:00 Intake Total 600 ml Balance 600 ml Intake Oral 600 ml # Voids 3 5 # Bowel Movements 1 1 Cardiovascular: RSR Respiratory: clear Abdomen: soft, flat, non-tender, present bowel sounds, non-distended Extremities: no edema, no tenderness, no cyanosis Laboratory Tests Test 12/22/20 03:40 White Blood Count 6.2 K/UL (4.8-10.8) Red Blood Count 4.51 M/UL (4.70-6.10) L Hemoglobin 13.4 G/DL (14.2-18.0) L Hematocrit 41.0 % (42.0-52.0) L Mean Corpuscular Volume 91 FL (80-99) Mean Corpuscular Hemoglobin 29.8 PG (27.0-31.0) Mean Corpuscular Hemoglobin Concent 32.8 G/DL (32.0-36.0) Red Cell Distribution Width 13.0 % (11.6-14.8) Platelet Count 253 K/UL (150-450) Mean Platelet Volume 7.3 FL (6.5-10.1) Neutrophils (%) (Auto) 65.1 % (45.0-75.0) Lymphocytes (%) (Auto) 21.1 % (20.0-45.0) Monocytes (%) (Auto) 8.7 % (1.0-10.0) Eosinophils (%) (Auto) 3.8 % (0.0-3.0) H Basophils (%) (Auto) 1.3 % (0.0-2.0) Sodium Level 145 MMOL/L (136-145) Potassium Level 3.6 MMOL/L (3.5-5.1) Chloride Level 107 MMOL/L (98-107) Carbon Dioxide Level 31 MMOL/L (21-32) Anion Gap 7 mmol/L (5-15) Blood Urea Nitrogen 26 mg/dL (7-18) H Creatinine 1.3 MG/DL (0.55-1.30) Estimat Glomerular Filtration Rate 54.9 mL/min (>60) Glucose Level 97 MG/DL (74-106) Calcium Level 8.9 MG/DL (8.5-10.1) Plan Problems: (1) Abdominal distension Assessment & Plan: Abdominal distention shortness of breath likely unrelated. Labs noted renal insufficiency dehydrated. Constipated. Bowel regimen initiated KUB ordered. No acute surgical intervention planned. Okay for diet. Will follow with recommendations as imaging available. Thank you for letting participate in patient's care. Cardiology input appreciated nephrology input appreciated KUB okay diet as tolerated activity as tolerated d/c planning labs okay improved tolerating diet okay to d/c from surgical standpoint (2) GERD (gastroesophageal reflux disease) (3) Chest pain (4) ICD (implantable cardioverter-defibrillator) in place (5) Gastrointestinal hemorrhage (6) HTN (hypertension) (7) JEZ (acute kidney injury) (8) Arthritis (9) Gout attack (10) History of pacemaker (11) Atrial fibrillation (12) CHF (congestive heart failure) (13) Gout Bobby Mccray Dec 22, 2020 14:01
--- NOTE | 2020-12-22 15:00 | Internal Med Progress Note ---
Subjective Physician Name Abdiaziz Pedro Attending Physician Abdiaziz Pedro MD Current Medications Medications (Trade) Dose Ordered Sig/Ronnie Route PRN Reason Start Time Stop Time Status Last Admin Dose Admin Acetaminophen (Tylenol) 650 mg Q4H PRN ORAL Mild Pain (Pain Scale 1-3) 12/15/20 15:15 01/14/21 15:14 Acetaminophen/ Codeine Phosphate (Tylenol #3) 1 tab Q8H PRN ORAL Pain Scale (6-10) 12/15/20 15:15 12/22/20 15:14 12/17/20 20:53 Al Hydroxide/Mg Hydroxide (Mylanta) 30 ml Q6H PRN ORAL For Pain 12/18/20 16:15 01/17/21 16:14 12/20/20 20:35 Allopurinol (Zyloprim) 200 mg DAILY ORAL 12/17/20 09:00 01/15/21 08:59 12/22/20 09:15 Amiodarone HCl (Cordarone) 200 mg DAILY ORAL 12/16/20 09:00 03/15/21 15:14 12/22/20 09:14 Amlodipine Besylate (Norvasc) 10 mg DAILY ORAL 12/16/20 09:00 01/15/21 08:59 12/20/20 09:45 Atorvastatin Calcium (Lipitor) 10 mg BEDTIME ORAL 12/15/20 21:00 03/15/21 20:59 12/21/20 21:41 Benazepril HCl (Lotensin) 40 mg DAILY ORAL 12/16/20 09:00 01/15/21 08:59 12/21/20 09:14 Docusate Sodium (Colace) 100 mg TID ORAL 12/16/20 13:00 01/14/21 17:59 12/22/20 09:15 Furosemide (Lasix) 40 mg DAILY ORAL 12/20/20 10:00 01/19/21 09:59 12/22/20 09:15 Metoprolol Succinate (Toprol XL) 200 mg DAILY ORAL 12/16/20 09:00 03/16/21 08:59 12/22/20 09:15 Nitroglycerin (Ntg) 0.4 mg Q5M PRN SL Prn Chest Pain 12/15/20 11:30 01/14/21 11:29 12/18/20 15:09 Ondansetron HCl (Zofran) 4 mg Q6H PRN IVP Nausea & Vomiting 12/15/20 15:15 01/14/21 15:14 Pantoprazole (Protonix) 40 mg BID ORAL 12/16/20 18:00 01/15/21 08:59 12/22/20 09:14 Rivaroxaban (Xarelto) 20 mg DAILY ORAL 12/16/20 09:00 03/16/21 08:59 12/19/20 08:57 Allergies: Coded Allergies: No Known Allergies (Verified , 03/15/10) Subjective awake, alert, responsive, denies any chest pain, decreased shortness of breath, sitting up at the bedside.. Objective Last Vital Signs Date Time Temp Pulse Resp B/P (MAP) Pulse Ox O2 Delivery O2 Flow Rate FiO2 12/22/20 12:00 97.5 83 20 127/93 (104) 95 12/22/20 09:00 Room Air 12/20/20 20:49 2.0 Laboratory Tests Test 12/22/20 03:40 White Blood Count 6.2 K/UL (4.8-10.8) Red Blood Count 4.51 M/UL (4.70-6.10) L Hemoglobin 13.4 G/DL (14.2-18.0) L Hematocrit 41.0 % (42.0-52.0) L Mean Corpuscular Volume 91 FL (80-99) Mean Corpuscular Hemoglobin 29.8 PG (27.0-31.0) Mean Corpuscular Hemoglobin Concent 32.8 G/DL (32.0-36.0) Red Cell Distribution Width 13.0 % (11.6-14.8) Platelet Count 253 K/UL (150-450) Mean Platelet Volume 7.3 FL (6.5-10.1) Neutrophils (%) (Auto) 65.1 % (45.0-75.0) Lymphocytes (%) (Auto) 21.1 % (20.0-45.0) Monocytes (%) (Auto) 8.7 % (1.0-10.0) Eosinophils (%) (Auto) 3.8 % (0.0-3.0) H Basophils (%) (Auto) 1.3 % (0.0-2.0) Sodium Level 145 MMOL/L (136-145) Potassium Level 3.6 MMOL/L (3.5-5.1) Chloride Level 107 MMOL/L (98-107) Carbon Dioxide Level 31 MMOL/L (21-32) Anion Gap 7 mmol/L (5-15) Blood Urea Nitrogen 26 mg/dL (7-18) H Creatinine 1.3 MG/DL (0.55-1.30) Estimat Glomerular Filtration Rate 54.9 mL/min (>60) Glucose Level 97 MG/DL (74-106) Calcium Level 8.9 MG/DL (8.5-10.1) Intake and Output 12/21/20 12/22/20 19:00 07:00 Intake Total 600 ml Balance 600 ml Intake Oral 600 ml # Voids 3 5 # Bowel Movements 1 1 Objective GENERAL: The patient awake, responsive, no acute distress. HEAD AND NECK: Pupils are equal and reactive to light. Extraocular muscles intact. NECK: Supple. Positive JVD. LUNGS: Good air entry with no wheezing or rhonchi. Decreased air in bases. HEART: S1, S2. Irregular. No murmur or gallops. ICD in left-sided chest wall was noted. ABDOMEN: Soft, nondistended, nontender. No rebound tenderness. Morbidly obese. EXTREMITIES: No cyanosis, clubbing. +1 edema bilateral lower extremities. NEUROLOGIC: Cranial nerves II through XII are grossly normal. Motor is 5/5 in all extremities. Gait was not assessed due to the patient's status. RECTAL: Refused and deferred. GENITOURINARY: Refused and deferred. PSYCHIATRIC: Mood and affect is intact. Assessment/Plan Assessment/Plan ASSESSMENT: 1. Acute on chronic congestive heart failure. 2. Atrial fibrillation, rate control. 3. Accelerated hypertension. 4. Morbid obesity. 5. S/P ICD. 6. JEZ PLAN: In monitored unit. Dr. Yanez, consultation from Cardiology and Dr. Abdirahman Kerr from Nephrology. On Lasix po. Code status is full. DVT prophylaxis: Xarelto Monitor laboratory. DC home in AM. Abdiaziz Pedro MD Dec 22, 2020 15:00
[2020-12-22 16:00] VITALS: BP 129/87
--- NOTE | 2020-12-22 19:12 | NUR ---
NURSE HAND-OFF REPORT: Important Events on Shift: Patient Status: Diet: Pending Orders: Pending Results/Labs: Pending MD notification: Latest Vital Signs: Temperature 97.7 , Pulse 73 , B/P 129 /87 , Respiratory Rate 20 , O2 SAT 98 , Room Air, O2 Flow Rate 2.0 . Vital Sign Comment: EKG Rhythm: Afib/Aflutter with BBB, V pacing Rhythm change?: N MD Notified?: N -Dr. Renata WOODALL Response: Latest Cummings Fall Score: 60 Fall Risk: High Risk Safety Measures: Call light Within Reach, Bed Alarm Zone 1, Side Rails Side Rails x2, Bed position Low and Locked. Fall Precautions: Yellow Socks Patient Fall Education Report given to . pt is stable, no stress note. Endorsed plan of care, Endorsed to monitor HR.
--- NOTE | 2020-12-22 19:20 | NUR ---
NURSE NOTES: Report received from HARRIETT Santana. Patient is awake on bed in stable condition. teletypesetter monitor is in place, shows Afib/Aflutter with HR of 80's and no chest pain reported. On cardiac diet, instructed and amenable. On oxygen via nasal cannula @ 2Lpm, saturating 96-98%. Patient can walk with assistance of his assistive device cane. Safety measures are in place, bed in lowest and locked position, side rails up x 2, call light button and bedside table within reach, instructed to call for any assistance needed, will continue plan of care.
[2020-12-22 20:00] VITALS: BP 120/78
[2020-12-22] MEDS: Atorvastatin 20mg tab ORAL SCH (20:56)
[2020-12-23] VITALS: BP 117/78
[2020-12-23 04:00] VITALS: BP 119/77
--- NOTE | 2020-12-23 07:30 | NUR ---
NURSE NOTES: Received pt from HARRIETT Rajan, pt is awake and alert, pt is in RA, no SOB or acute respiratory distress noted. pt is on continues heart monitoring, pt has no iv access. No complain of pain at this moment. all needs attended, bed is locked and is in the lowest position, call light within easy reach. will continue to close monitoring.
--- NOTE | 2020-12-23 07:33 | NUR ---
NURSE HAND-OFF REPORT: Important Events on Shift: Patient has been resting well the whole shift, no episode of fever nor SOB. Patient Status: Patient is awake on bed in stable condition, plan of care endorsed. Diet: Cardiac diet Pending Orders: none Pending Results/Labs:none Pending MD notification:none Latest Vital Signs: Temperature 97.7 , Pulse 79 , B/P 119 /77 , Respiratory Rate 24 , O2 SAT 95 , Room Air, O2 Flow Rate 2.0 . Vital Sign Comment: stable EKG Rhythm: V-Paced Rhythm change?: N Notified?: N -Dr. Renata WOODALL Response: Latest Cummings Fall Score: 60 Fall Risk: High Risk Safety Measures: Call light Within Reach, Bed Alarm Zone 1, Side Rails Side Rails x2, Bed position Low and Locked. Fall Precautions: Yellow Socks Patient Fall Education Report given to HARRIETT Santana.
[2020-12-23 07:55] VITALS: BP 120/87
[2020-12-23] MEDS: Docusate 100mg cap ORAL SCH ×2 (08:43→12:22)
[2020-12-23] MEDS: Allopurinol 100mg Tab ORAL SCH (08:43)
[2020-12-23] MEDS: Furosemide 40mg tab ORAL SCH (08:44)
[2020-12-23] MEDS: Amiodarone 200mg tab ORAL SCH (08:44)
[2020-12-23] MEDS: Xarelto 10mg tab ORAL SCH (08:45)
[2020-12-23] MEDS: Metoprolol Succinate XL 100mg tab ORAL SCH (08:45)
--- NOTE | 2020-12-23 09:52 | Nephrology Progress Note ---
Assessment/Plan Problem List: (1) JEZ (acute kidney injury) (2) HTN (hypertension) (3) ICD (implantable cardioverter-defibrillator) in place (4) CHF (congestive heart failure) (5) Atrial fibrillation (6) Gout Assessment CHF,History of cardiomyopathy At Fib HTN, uncontrolled at times History of gout Has defibrillator History of renal insufficiency History of anemia and previous transfusion GERD High cholesterol Plan December 23: No labs drawn today. Status quo. Medication list reviewed. Stable from renal standpoint of view. December 22: Labs reviewed. Renal parameters stable. Medication list reviewed. Continue per cardiology advice. December 21: Labs reviewed. Serum creatinine 1.3. Electrolytes stable. Medication list reviewed. Continue per cardiology advice. December 20: Labs reviewed. Serum sodium slightly elevated. Medication list reviewed. Continues to be on Lasix intravenously per fire chief's aide. Continue to monitor her electrolytes. December 19: Labs reviewed. Electrolytes and renal parameters within normal limit. Continue as is. December 18: Labs reviewed. Serum creatinine 1.4. Medication list reviewed. Blood pressure is stable. Continue per cardiology. Continue to monitor renal parameters. December 17: Today's labs pending as of now. Medication list reviewed. Patient clinically stable. Continue as is, per consultants. December 16: Optimize cardiac status. Keep the blood pressure in check. Monitor renal parameters. Avoid nephrotoxic's. Per orders. Per consultants. Subjective ROS Limited/Unobtainable: No Objective Objective Last 24 Hour Vital Signs Date Time Temp Pulse Resp B/P (MAP) Pulse Ox O2 Delivery O2 Flow Rate FiO2 12/23/20 08:45 68 120/87 12/23/20 08:44 120/87 12/23/20 08:44 68 120/87 12/23/20 07:55 98.1 68 23 120/87 (98) 98 12/23/20 04:00 97.7 79 24 119/77 (91) 95 12/23/20 04:00 86 12/23/20 00:00 97.5 84 24 117/78 (91) 98 12/23/20 00:00 76 12/22/20 21:00 Nasal Cannula 2.0 12/22/20 20:00 97.7 87 24 120/78 (92) 96 12/22/20 20:00 76 12/22/20 16:00 97.7 73 20 129/87 (101) 98 3/25/21 15:46 89 12/22/20 12:00 97.5 83 20 127/93 (104) 95 12/22/20 11:53 80 Intake and Output 12/22/20 12/23/20 19:00 07:00 Intake Total 220 ml 700 ml Balance 220 ml 700 ml Intake Oral 220 ml 700 ml # Voids 2 2 # Bowel Movements 1 Current Medications Medications (Trade) Dose Ordered Sig/Ronnie Route PRN Reason Start Time Stop Time Status Last Admin Dose Admin Acetaminophen (Tylenol) 650 mg Q4H PRN ORAL Mild Pain (Pain Scale 1-3) 12/15/20 15:15 01/14/21 15:14 Al Hydroxide/Mg Hydroxide (Mylanta) 30 ml Q6H PRN ORAL For Pain 12/18/20 16:15 01/17/21 16:14 12/20/20 20:35 Allopurinol (Zyloprim) 200 mg DAILY ORAL 12/17/20 09:00 01/15/21 08:59 12/23/20 08:43 Amiodarone HCl (Cordarone) 200 mg DAILY ORAL 12/16/20 09:00 03/15/21 15:14 12/23/20 08:44 Amlodipine Besylate (Norvasc) 10 mg DAILY ORAL 12/16/20 09:00 01/15/21 08:59 12/23/20 08:44 Atorvastatin Calcium (Lipitor) 10 mg BEDTIME ORAL 12/15/20 21:00 03/15/21 20:59 12/22/20 20:56 Benazepril HCl (Lotensin) 40 mg DAILY ORAL 12/16/20 09:00 01/15/21 08:59 12/23/20 08:44 Docusate Sodium (Colace) 100 mg TID ORAL 12/16/20 13:00 01/14/21 17:59 12/23/20 08:43 Furosemide (Lasix) 40 mg DAILY ORAL 12/20/20 10:00 01/19/21 09:59 12/23/20 08:44 Metoprolol Succinate (Toprol XL) 200 mg DAILY ORAL 12/16/20 09:00 03/16/21 08:59 12/23/20 08:45 Nitroglycerin (Ntg) 0.4 mg Q5M PRN SL Prn Chest Pain 12/15/20 11:30 01/14/21 11:29 12/18/20 15:09 Ondansetron HCl (Zofran) 4 mg Q6H PRN IVP Nausea & Vomiting 12/15/20 15:15 01/14/21 15:14 Pantoprazole (Protonix) 40 mg BID ORAL 12/16/20 18:00 01/15/21 08:59 12/23/20 08:44 Rivaroxaban (Xarelto) 20 mg DAILY ORAL 12/16/20 09:00 03/16/21 08:59 12/23/20 08:45 Height (Feet): 5 Height (Inches): 7.00 Weight (Pounds): 247 General Appearance: no apparent distress Cardiovascular: normal rate Respiratory/Chest: decreased breath sounds Abdomen: distended Abdirahman Kerr MD Dec 23, 2020 09:52
--- NOTE | 2020-12-23 11:01 | Surgery Progress Note ---
Surgery Progress Note Subjective Additional Comments afebrile, HD stable watching shows on phone no complaints Objective Last 24 Hour Vital Signs Date Time Temp Pulse Resp B/P (MAP) Pulse Ox O2 Delivery O2 Flow Rate FiO2 12/23/20 09:00 Room Air 12/23/20 08:45 68 120/87 12/23/20 08:44 120/87 12/23/20 08:44 68 120/87 12/23/20 07:55 98.1 68 23 120/87 (98) 98 12/23/20 07:51 101 12/23/20 04:00 97.7 79 24 119/77 (91) 95 12/23/20 04:00 86 12/23/20 00:00 97.5 84 24 117/78 (91) 98 12/23/20 00:00 76 12/22/20 21:00 Nasal Cannula 2.0 12/22/20 20:00 97.7 87 24 120/78 (92) 96 12/22/20 20:00 76 12/22/20 16:00 97.7 73 20 129/87 (101) 98 12/22/20 15:46 89 12/22/20 12:00 97.5 83 20 127/93 (104) 95 12/22/20 11:53 80 I&O Intake and Output 12/22/20 12/23/20 19:00 07:00 Intake Total 220 ml 700 ml Balance 220 ml 700 ml Intake Oral 220 ml 700 ml # Voids 2 2 # Bowel Movements 1 Dressing: saturated Cardiovascular: RSR Respiratory: clear Abdomen: soft, flat, non-tender, present bowel sounds, non-distended Extremities: no edema, no tenderness, no cyanosis Plan Problems: (1) Abdominal distension Assessment & Plan: Abdominal distention shortness of breath likely unrelated. Labs noted renal insufficiency dehydrated. Constipated. Bowel regimen initiated KUB ordered. No acute surgical intervention planned. Okay for diet. Will follow with recommendations as imaging available. Thank you for letting participate in patient's care. Cardiology input appreciated nephrology input ap preciated KUB okay diet as tolerated activity as tolerated d/c planning labs okay improved tolerating diet okay to d/c from surgical standpoint renal function okay good bowel function no complaints (2) GERD (gastroesophageal reflux disease) (3) Chest pain (4) ICD (implantable cardioverter-defibrillator) in place (5) Gastrointestinal hemorrhage (6) HTN (hypertension) (7) JEZ (acute kidney injury) (8) Arthritis (9) Gout attack (10) History of pacemaker (11) Atrial fibrillation (12) CHF (congestive heart failure) (13) Bobby Judd Dec 23, 2020 11:01
--- NOTE | 2020-12-23 11:16 | NUR ---
NURSE NOTES: Received pt from CENTRAL PROCESSING TECHNICIAN Trina, pt is awake and confused, pt has NC 1lit, pt is on continues heart monitoring, pt has L chest PM, pt has intact mid line VANDA is running well. pt has Navarro cath in place is working well. pt has open wound stag 3 on sacral, wound treatment done as order. No complain of pain at this moment. all needs attended, bed is locked and is in the lowest position, call light within easy reach. will continue to close monitoring. Addendum: 12/23/20 at 1124 by Esther Nichole RN WRONG PT, PLEASE DISREGARD THIS NOTE.
[2020-12-23 12:00] VITALS: BP 118/79
--- NOTE | 2020-12-23 12:38 | Cardiac Electrophysiology PN ---
Assessment/Plan Assessment/Plan 1. Exacerbation of congestive heart failure with EF 20%, In 2014, it was only 25%. On Lasix 40 mg po daily, Toprol-XL 200 mg daily and benazepril 40 mg daily. 2. Atrial fibrillation. On Amiodarone 200 daily, Toprol 200 mg daily and Xarelto 20 mg daily 3. Accelerated hypertension, on Toprol 200, Lasix, benazepril 40 mg daily, and amlodipine 10 mg daily and p.r.n. hydralazine 4. S/P DDD [employer] ICD, interrogated and showed Nl Fx. Battery 6 years 90% atrial fib 5. Right eye subconjunctival bleeding. Says it happens when he is on Aspirin Off Aspirin. Resumed Xarelto yesterday [place] RN and Dr Hanson Subjective Subjective In atrial fib with with controlled rate. Paced via BS ICD CHF EF 25% Scleral subconjunctival bleeding in Right eye resolving and is back on Xarelto and off aspirin No CP or SOB Objective Last 24 Hour Vital Signs Date Time Temp Pulse Resp B/P (MAP) Pulse Ox O2 Delivery O2 Flow Rate FiO2 12/23/20 12:00 98.2 71 21 118/79 (92) 96 12/23/20 09:00 Room Air 12/23/20 08:45 68 120/87 12/23/20 08:44 120/87 12/23/20 08:44 68 120/87 12/23/20 07:55 98.1 68 23 120/87 (98) 98 12/23/20 07:51 101 12/23/20 04:00 97.7 79 24 119/77 (91) 95 12/23/20 04:00 86 12/23/20 00:00 97.5 84 24 117/78 (91) 98 12/23/20 00:00 76 12/22/20 21:00 Nasal Cannula 2.0 12/22/20 20:00 97.7 87 24 120/78 (92) 96 12/22/20 20:00 76 12/22/20 16:00 97.7 73 20 129/87 (101) 98 12/22/20 15:46 89 Intake and Output 12/22/20 12/23/20 19:00 07:00 Intake Total 220 ml 700 ml Balance 220 ml 700 ml Intake Oral 220 ml 700 ml # Voids 2 2 # Bowel Movements 1 Objective HEAD AND NECK: Positive JVD. Right eye subconjunctival bleeding LUNGS: Decreased breath sounds with basilar rales. CARDIOVASCULAR: Irregularly irregular S1 and S2. No gallop or murmur. ABDOMEN: Soft. EXTREMITIES: 1+ pitting edema. Defibrillator in left subclavian. Chong Yanez MD Dec 23, 2020 12:38
--- NOTE | 2020-12-23 14:43 | NUR ---
INSURANCE CLINICALS FAXED TO [facility] FAX [phone] TELE [phone]
--- NOTE | 2020-12-23 14:50 | Internal Med Progress Note ---
Subjective Physician Name Abdiaziz Pedro Attending Physician Abdiaziz Pedro MD Current Medications Medications (Trade) Dose Ordered Sig/Ronnie Route PRN Reason Start Time Stop Time Status Last Admin Dose Admin Acetaminophen (Tylenol) 650 mg Q4H PRN ORAL Mild Pain (Pain Scale 1-3) 12/15/20 15:15 01/14/21 15:14 Al Hydroxide/Mg Hydroxide (Mylanta) 30 ml Q6H PRN ORAL For Pain 12/18/20 16:15 01/17/21 16:14 12/20/20 20:35 Allopurinol (Zyloprim) 200 mg DAILY ORAL 12/17/20 09:00 01/15/21 08:59 12/23/20 08:43 Amiodarone HCl (Cordarone) 200 mg DAILY ORAL 12/16/20 09:00 03/15/21 15:14 12/23/20 08:44 Amlodipine Besylate (Norvasc) 10 mg DAILY ORAL 12/16/20 09:00 01/15/21 08:59 12/23/20 08:44 Atorvastatin Calcium (Lipitor) 10 mg BEDTIME ORAL 12/15/20 21:00 03/15/21 20:59 12/22/20 20:56 Benazepril HCl (Lotensin) 40 mg DAILY ORAL 12/16/20 09:00 01/15/21 08:59 12/23/20 08:44 Docusate Sodium (Colace) 100 mg TID ORAL 12/16/20 13:00 01/14/21 17:59 12/23/20 12:22 Furosemide (Lasix) 40 mg DAILY ORAL 12/20/20 10:00 01/19/21 09:59 12/23/20 08:44 Metoprolol Succinate (Toprol XL) 200 mg DAILY ORAL 12/16/20 09:00 03/16/21 08:59 12/23/20 08:45 Nitroglycerin (Ntg) 0.4 mg Q5M PRN SL Prn Chest Pain 12/15/20 11:30 01/14/21 11:29 12/18/20 15:09 Ondansetron HCl (Zofran) 4 mg Q6H PRN IVP Nausea & Vomiting 12/15/20 15:15 01/14/21 15:14 Pantoprazole (Protonix) 40 mg BID ORAL 12/16/20 18:00 01/15/21 08:59 12/23/20 08:44 Rivaroxaban (Xarelto) 20 mg DAILY ORAL 12/16/20 09:00 03/16/21 08:59 12/23/20 08:45 Allergies: Coded Allergies: No Known Allergies (Verified , 03/15/10) Subjective awake, alert, responsive, denies any chest pain, decreased shortness of breath, sitting up at the bedside.. Objective Last Vital Signs Date Time Temp Pulse Resp B/P (MAP) Pulse Ox O2 Delivery O2 Flow Rate FiO2 12/23/20 12:33 88 12/23/20 12:00 98.2 21 118/79 (92) 96 12/23/20 09:00 Room Air 12/22/20 21:00 2.0 Intake and Output 12/22/20 12/23/20 19:00 07:00 Intake Total 220 ml 700 ml Balance 220 ml 700 ml Intake Oral 220 ml 700 ml # Voids 2 2 # Bowel Movements 1 Objective GENERAL: The patient awake, responsive, no acute distress. HEAD AND NECK: Pupils are equal and reactive to light. Extraocular muscles intact. NECK: Supple. Positive JVD. LUNGS: Good air entry with no wheezing or rhonchi. Decreased air in bases. HEART: S1, S2. Irregular. No murmur or gallops. ICD in left-sided chest wall was noted. ABDOMEN: Soft, nondistended, nontender. No rebound tenderness. Morbidly obese. EXTREMITIES: No cyanosis, clubbing. +1 edema bilateral lower extremities. NEUROLOGIC: Cranial nerves II through XII are grossly normal. Motor is 5/5 in all extremities. Gait was not assessed due to the patient's status. RECTAL: Refused and deferred. GENITOURINARY: Refused and deferred. PSYCHIATRIC: Mood and affect is intact. Assessment/Plan Assessment/Plan ASSESSMENT: 1. Acute on chronic congestive heart failure. 2. Atrial fibrillation, rate control. 3. Accelerated hypertension. 4. Morbid obesity. 5. S/P ICD. 6. JEZ PLAN: In monitored unit. Dr. Yanez, consultation from Cardiology and Dr. Abdirahman Kerr from Nephrology. On Lasix po. Code status is full. DVT prophylaxis: Xarelto Monitor laboratory. DC home today. Abdiaziz Pedro MD Dec 23, 2020 14:50
--- NOTE | 2020-12-23 15:39 | NUR ---
NURSE NOTES: pt has D/C order, all discharge assessments and instructions done and pt verbally confirmed to understand all, pt is stable, V/S stable, all belongings are with pt, pt has 415$, didn't show to RN but verbally confirmed to have it. pt has own meds x3 boxes, received from pharmacy and delivered to pt. Dr Yanez visited pt AM and cleared pt to D/C. skin is intact. Pt's son Adonay is aware about D/C and is in the lobby to pick pt up.
--- NOTE | 2020-12-27 09:11 | Discharge Summary ---
Discharge Summary Discharge Summary _ Date of admission: 12/15/2020 Date of discharge: 12/23/[address] Pedro History of Present Illness and Brief Hospital Course Ms. Forbes is a 70-year-old male with past medical history of hypertension, CHF, and ICD implant, who presented to the ED for evaluation of dyspnea x2 days. Patient also reported that he began having leg edema and orthopnea. Patient had been compliant with his anticoagulation and his antiarrhythmics. Patient was given Lasix and nitrates. Patient was also started on supplemental oxygen for respiratory distress. He tested negative for COVID-19. Laboratory testing showed elevated proBNP with negative initial troponin. Chest x-ray showed c ardiomegaly as well as pacemaker with moderate bilateral vascular congestion. Patient was admitted to the hospital for further management. Echocardiogram revealed ejection fraction of 20% compared to 25% in 2015 from the prior study. Patient was continued on Lasix, Toprol-XL, and benazepril. Given the atrial fibrillation, his rate was controlled with amiodarone, and Toprol. Patient was on Xarelto for anticoagulation as well. His DDD [employer] ICD was interrogated and showed normal function. Patient also presented with abdominal distention. Labs revealed renal insufficiency likely related to dehydration. Patient was also noted to be constipated. Bowel regimen was initiated. KUB revealed no indication for acute surgical intervention. Patient was medically stable for discharge and was discharged home on 12/23/2020. Patient was instructed to follow-up with his PCP within 1 week upon discharge. Consultants Cardiology Dr. Yanez Surgery Dr. Mccray Nephrology Dr. Conner Discharge Condition Stable Discharge Activity As tolerated Discharge Diet Low-fat, low-sodium diet Final diagnoses CHF exacerbation, EF 20%. Atrial fibrillation Accelerated hypertension s/p DDD [employer] ICD. Interrogated, battery 6 years Right eye subconjunctival bleeding secondary to aspirin use Obesity, BMI 35.4 JEZ History of gout History of GERD History of arthritis I have been assigned to dictate discharge summary for this account. I was not involved in the patient's management Jeffy Rivas Dec 27, 2020 09:11
== END 2020-12-23 15:45 | disposition home or self-care (01) | DRG 194 ==
LOC: EMR 11:32 → 2E 12:12 → EDBEDREQ 13:02
DX: I11.0 Hypertensive heart disease with heart failure (principal); I50.23 Acute on chronic systolic (congestive) heart failure; I48.91 Unspecified atrial fibrillation; M10.9 Gout, unspecified; K21.9 Gastro-esophageal reflux disease without esophagitis; E78.00 Pure hypercholesterolemia, unspecified; I42.9 Cardiomyopathy, unspecified; Z95.0 Presence of cardiac pacemaker; H11.31 Conjunctival hemorrhage, right eye; M19.90 Unspecified osteoarthritis, unspecified site; E66.9 Obesity, unspecified; Z68.35 Body mass index [BMI] 35.0-35.9, adult
CPT/HCPCS: 36415; 71045; 74018; 80048; 80053; 80061; 81001; 82150; 82248; 82306; 82607; 82746; 82977; 83036; 83605; 83690; 83735; 83880; 84100; 84153; 84443; 84484; 84550; 85025; 85379; 85610; 85651; 85730; 86140; 93005; 93306; 96374; 99285; J8499; U0002